=== PATIENT | male | born 1935 | race Caucasian/White ===

== ENCOUNTER 2017-09-27 23:15 | Observation (INO) ==
[2017-09-27] MEDS ORDERED: 0.9 % Sodium Chloride 500 ML IVC ONE (23:18)
--- NOTE | 2017-09-27 23:21 | Emergency Department Note ---
Disposition Clinical Impression: Chest pain Disposition: Admitted As Inpatient Condition: Good Referrals: Celina Tovar MD [Primary Care Provider] - Chest Pain HPI - General Stated Complaint: chest pain Time Seen by Provider: 09/27/17 23:18 Source: patient, EMS Mode of arrival: EMS Limitations: no limitations Vital Signs Reviewed: Yes Nursing Notes Reviewed: Yes - History of Present Illness HPI Narrative: Patient presents to the ED with the chief complaint of chest pain. Patient has a history of multivessel CABG and is on Plavix. States that he was woken up from sleep about 45 minutes ago with a centralized retrosternal chest pressure and heaviness. Associated with nausea but no vomiting. No diaphoresis. States it did make him feel slightly short of breath. No fever or chills, cough, abdominal pain, vomiting, diarrhea. States this feels like his last episode with his heart. EMS gave him an aspirin, which seemed to help his pain and brought it down from an 8-2. Patient reports he is pain-free at this time. - Related Data Home Medications Medication Instructions Recorded Confirmed Finasteride [Proscar] 5 mg PO HS 08/08/15 09/28/17 Furosemide [Lasix] 40 mg PO QAM 08/08/15 09/28/17 Losartan Potassium [Cozaar] 50 mg PO DAILY 08/08/15 09/28/17 Simvastatin [Zocor] 40 mg PO HS 08/08/15 09/28/17 Tamsulosin [Flomax] 0.4 mg PO HS 08/08/15 09/28/17 glipiZIDE [Glucotrol] 10 mg PO BID 08/08/15 09/28/17 Gabapentin [Neurontin] 100 mg PO QAM 01/28/16 09/28/17 Carvedilol 12.5 mg PO BID 06/01/16 09/28/17 Clopidogrel Bisulfate [Plavix] 75 mg PO HS 06/01/16 09/28/17 Gabapentin [Neurontin] 300 mg PO HS 06/01/16 09/28/17 Ketoconazole 2% CRM [Nizoral Cream] 1 appl TP DAILY 08/20/16 09/28/17 Allergies Allergy/AdvReac Type Severity Reaction Status Date / Time dabigatran etexilate AdvReac See Verified 06/01/16 16:50 [From Pradaxa] Comments Review of Systems: As reviewed in the HPI. All other systems reviewed are negative or normal. Chest Pain PMH - Past Medical History Medical history: Reports: arthritis, CHF, coronary artery disease, diabetes, hyperlipidemia, hypertension, peripheral artery disease, renal disease Surgical history: Reports: appendectomy, cholecystectomy, coronary bypass (CABG) , other, AICD Psychiatric history: Reports: no psych history - Social History Smoking Status: Former smoker Alcohol use: Reports: none Drug use: Reports: none Physical Exam - General Limitations: no limitations General appearance: alert, in no apparent distress, other (Appears uncomfortable ) - Chest Chest inspection: Present: normal inspection, symmetric chest wall rise, other ( Previous CABG scar) - Respiratory Respiratory exam: Present: normal lung sounds bilaterally - Cardiovascular Cardiovascular exam: Present: regular rate, normal rhythm, normal heart sounds - Abdominal Exam Abdominal exam: Present: soft, Non-Tender, scar (Multiple surgical scars right upper quadrant, midline lower abdomen). Absent: tenderness, distention, guarding, rebound, rigidity - Extremities Exam Extremities exam: Present: other (Left BKA, right leg slightly edematous) - Neurological Exam Neurological exam: Present: alert, oriented X3 - Psychiatric Psychiatric exam: Present: normal affect, normal mood - Skin Skin exam: Present: warm, dry, intact, normal color Course Course Narrative: Patient presenting with chest pain that it is his anginal equivalent. History of CABG and is on Plavix. We will get workup and admit. - Reevaluation(s) Reevaluation #1: Workup is been unremarkable so far. Patient does need to be admitted. However , the hospitalist: We have no telemetry beds. I have spoken with the on-call hospitalist, who states that he is calling that management and hospital administration to determine if we will be able to keep this patient here due to staffing concerns. Reevaluation #2: we did find a nurse and beds and the patient has been accepted for admission Vital Signs Temperature 97.5 F L 09/27/17 23:18 Pulse Rate 76 09/27/17 23:18 Respiratory Rate 18 09/27/17 23:18 Blood Pressure 149/69 09/27/17 23:18 O2 Sat by Pulse Oximetry 99 09/27/17 23:18 Temperature 97.5 F L 09/27/17 23:18 Pulse Rate 59 09/28/17 02:00 Respiratory Rate 18 04/16/18 23:18 Blood Pressure 137/61 09/28/17 02:00 O2 Sat by Pulse Oximetry 100 09/28/17 02:00 Oxygen Delivery Oxygen Delivery Room Air Chest Pain - Lab Data Result diagrams: 09/27/17 23:28 09/27/17 23:28 Lab Results 09/27/17 09/27/17 09/27/17 Range/Units 23:28 23:28 23:28 WBC 7.6 (4.3-11.1) K/mcL RBC 4.03 L (4.19-5.50) M/mcL Hgb 13.3 (12.9-16.9) g/dL Hct 38.1 (37.5-50.1) % MCV 94.5 (83.0-100.0) fL MCH 33.0 (28.0-33.3) pg MCHC 34.9 (31.6-35.5) g/dL RDW 13.8 (11.5-14.5) % Plt Count 124 L (140-400) K/mcL MPV 10.3 (9.4-12.4) fL Immature Gran % 0.5 (0-4) % Seg Neutrophils % 58.8 % Lymphocytes % 27.6 % Monocytes % 10.9 % Eosinophils % 1.8 % Basophils % 0.4 % Neutrophils # 4.5 (1.6-8.9) K/mcL Lymphocytes # 2.1 (0.6-4.6) K/mcL Monocytes # 0.8 (0.0-1.3) K/mcL Eosinophils # 0.1 (0.0-0.6) K/mcL Basophils # 0.0 (0.0-0.2) K/mcL Sodium 140 (136-145) mEq/L Potassium 4.2 (3.5-5.1) mEq/L Chloride 102 (98-107) mEq/L Carbon Dioxide 27 (23-29) mEq/L BUN 39 H (8-23) mg/dL Creatinine 1.41 H (0.70-1.30) mg/dL Est GFR ( Amer) 58 L (> 60) Est GFR (Non-Af Amer) 48 L (> 60) BUN/Creatinine Ratio 28 H (6-26) Glucose 157 H (70-105) mg/dL Calculated Osmolality 303 H (280-300) Calcium 9.4 (8.6-10.3) mg/dL Troponin I < 0.03 (< 0.04) ng/mL B-Natriuretic Peptide 165 H (Less than 100) pg/mL Urine Color (Yellow) Urine Clarity (Clear) Urine pH (5.0-8.0) pH Units Ur Specific [place] (1.010-1.025) Urine Protein (Neg-Trace) mg/dL Urine Glucose (UA) (Normal) mg/dL Urine Ketones (Negative) mg/dL Urine Blood (Negative) Urine Nitrite (Negative) Urine Bilirubin (Negative) Urine Urobilinogen (Normal) mg/dL Ur Leukocyte Esterase (Negative) Urine Microscopic RBC (0-3) per hpf Urine Microscopic WBC (0-3) per hpf Ur Squamous Epith Cells (None-Few) per lpf Urine Bacteria (None-Few) per hpf Hyaline Casts (None-Few) per lpf Ur Culture Indicated? (NO) 09/28/17 Range/Units 02:00 WBC (4.3-11.1) K/mcL RBC (4.19-5.50) M/mcL Hgb (12.9-16.9) g/dL Hct (37.5-50.1) % MCV (83.0-100.0) fL MCH (28.0-33.3) pg MCHC (31.6-35.5) g/dL RDW (11.5-14.5) % Plt Count (140-400) K/mcL MPV (9.4-12.4) fL Immature Gran % (0-4) % Seg Neutrophils % % Lymphocytes % % Monocytes % % Eosinophils % % Basophils % % Neutrophils # (1.6-8.9) K/mcL Lymphocytes # (0.6-4.6) K/mcL Monocytes # (0.0-1.3) K/mcL Eosinophils # (0.0-0.6) K/mcL Basophils # (0.0-0.2) K/mcL Sodium (136-145) mEq/L Potassium (3.5-5.1) mEq/L Chloride (98-107) mEq/L Carbon Dioxide (23-29) mEq/L BUN (8-23) mg/dL Creatinine (0.70-1.30) mg/dL Est GFR ( Amer) (> 60) Est GFR (Non-Af Amer) (> 60) BUN/Creatinine Ratio (6-26) Glucose (70-105) mg/dL Calculated Osmolality (280-300) Calcium (8.6-10.3) mg/dL Troponin I (< 0.04) ng/mL B-Natriuretic Peptide (Less than 100) pg/mL Urine Color Red A (Yellow) Urine Clarity Clear (Clear) Urine pH 6.0 (5.0-8.0) pH Units Ur Specific [place] 1.016 (1.010-1.025) Urine Protein Trace (Neg-Trace) mg/dL Urine Glucose (UA) 250 H (Normal) mg/dL Urine Ketones Negative (Negative) mg/dL Urine Blood Negative (Negative) Urine Nitrite Negative (Negative) Urine Bilirubin Negative (Negative) Urine Urobilinogen Normal (Normal) mg/dL Ur Leukocyte Esterase Negative (Negative) Urine Microscopic RBC 0-3 (0-3) per hpf Urine Microscopic WBC 0-3 (0-3) per hpf Ur Squamous Epith Cells Few (None-Few) per lpf Urine Bacteria None Seen (None-Few) per hpf Hyaline Casts None Seen (None-Few) per lpf Ur Culture Indicated? NO (NO)
[2017-09-27 23:38] LABS: Basophils % 0.4 %; Eosinophils # 0.1 K/mcL (0.0-0.6); Eosinophils % 1.8 %; Hematocrit 38.1 % (37.5-50.1); Hemoglobin 13.3 g/dL (12.9-16.9); Immature Granulocytes % 0.5 % (0-4); Lymphocytes # 2.1 K/mcL (0.6-4.6); Lymphocytes % 27.6 %; Mean Corpuscular HGB Conc 34.9 g/dL (31.6-35.5); Mean Corpuscular Volume 94.5 fL (83.0-100.0); Mean Platelet Volume 10.3 fL (9.4-12.4); Monocytes # 0.8 K/mcL (0.0-1.3); Monocytes % 10.9 %; Neutrophils # 4.5 K/mcL (1.6-8.9); Platelet Count 124 K/mcL (140-400); Red Blood Count 4.03 M/mcL (4.19-5.50); Red Cell Distribution Width 13.8 % (11.5-14.5); Segmented Neutrophils % 58.8 %
[2017-09-27 23:59] LABS: BUN/Creatinine Ratio 28 (6-26); Blood Urea Nitrogen 39 mg/dL (8-23); Calcium 9.4 mg/dL (8.6-10.3); Carbon Dioxide 27 mEq/L (23-29); Chloride 102 mEq/L (98-107); Glucose 157 mg/dL (70-105); Osmolality,Calculated 303 (280-300); Potassium 4.2 mEq/L (3.5-5.1); Sodium 140 mEq/L (136-145); eGFR For African Americans 58 (> 60); eGFR For Non-African Americans 48 (> 60)
[2017-09-28] LABS: Troponin I < 0.03 ng/mL (< 0.04)
[2017-09-28] MEDS ORDERED: Ondansetron 4 MG/2 ML VIAL IVP ONE (00:10)
[2017-09-28] MEDS ORDERED: *HR* OxyCODONE/APAP 5/325 TABLET PO ONE (00:50)
[2017-09-28 02:39] LABS: Bilirubin,Urine Negative (Negative); Blood,Urine Negative (Negative); Clarity,Urine Clear (Clear); Color,Urine Red (Yellow); Glucose,Urine (UA) 250 mg/dL (Normal); Ketones,Urine Negative (Negative); Leukocyte Esterase,Urine Negative (Negative); Nitrite,Urine Negative (Negative); Protein,Urine Trace mg/dL (Neg-Trace); Specific Gravity,Urine 1.016 (1.010-1.025); Urobilinogen,Urine Normal (Normal)
[2017-09-28 02:42] LABS: Bacteria,Urine None Seen per hpf (None-Few); Hyaline Casts,Urine None Seen per lpf (None-Few); RBC,Urine 0-3 per hpf (0-3); Squamous Epithelial Cell,Urine Few per lpf (None-Few); WBC,Urine 0-3 per hpf (0-3)
--- NOTE | 2017-09-28 03:50 | Emergency Department Note ---
Disposition Clinical Impression: Chest pain Disposition: Admitted As Inpatient Condition: Good Referrals: Celina Tovar MD [Primary Care Provider] - General Adult HPI - General Chief complaint: ED Chest Pain Stated complaint: chest pain Time Seen by Provider: 09/27/17 23:18 Source: patient, EMS Mode of arrival: EMS Limitations: no limitations - History of Present Illness Pain Scale: 3 - Related Data Home Medications Medication Instructions Recorded Confirmed Finasteride [Proscar] 5 mg PO HS 08/08/15 09/28/17 Furosemide [Lasix] 40 mg PO QAM 08/08/15 09/28/17 Losartan Potassium [Cozaar] 50 mg PO DAILY 08/08/15 09/28/17 Simvastatin [Zocor] 40 mg PO HS 08/08/15 09/28/17 Tamsulosin [Flomax] 0.4 mg PO HS 08/08/15 09/28/17 glipiZIDE [Glucotrol] 10 mg PO BID 08/08/15 09/28/17 Gabapentin [Neurontin] 100 mg PO QAM 01/28/16 09/28/17 Carvedilol 12.5 mg PO BID 06/01/16 09/28/17 Clopidogrel Bisulfate [Plavix] 75 mg PO HS 06/01/16 09/28/17 Gabapentin [Neurontin] 300 mg PO HS 06/01/16 09/28/17 Ketoconazole 2% CRM [Nizoral Cream] 1 appl TP DAILY 08/20/16 09/28/17 Allergies Allergy/AdvReac Type Severity Reaction Status Date / Time dabigatran etexilate AdvReac See Verified 06/01/16 16:50 [From Pradaxa] Comments Past Medical History - Past Medical History Medical history: Reports: arthritis, CHF, coronary artery disease, diabetes, hyperlipidemia, hypertension, peripheral artery disease, renal disease Surgical history: Reports: appendectomy, cholecystectomy, coronary bypass (CABG) , other, AICD Psychiatric history: Reports: no psych history - Social History Smoking Status: Former smoker Smokeless Tobacco Status: No Alcohol use: Reports: none Drug use: Reports: none Physical Exam - General Limitations: no limitations General appearance: alert, in no apparent distress, other (Appears uncomfortable ) Course Vital Signs Temperature 97.5 F L 09/27/17 23:18 Pulse Rate 76 09/27/17 23:18 Respiratory Rate 18 04/16/18 23:18 Blood Pressure 149/69 09/27/17 23:18 O2 Sat by Pulse Oximetry 99 09/27/17 23:18 Temperature 97.5 F L 09/27/17 23:18 Pulse Rate 59 09/28/17 02:00 Respiratory Rate 18 09/27/17 23:18 Blood Pressure 137/61 09/28/17 02:00 O2 Sat by Pulse Oximetry 100 09/28/17 02:00 Oxygen Delivery Oxygen Delivery Room Air Medical Decision Making - Lab Data Result diagrams: 09/27/17 23:28 09/27/17 23:28 Lab Results 09/27/17 09/27/17 09/27/17 Range/Units 23:28 23:28 23:28 WBC 7.6 (4.3-11.1) K/mcL RBC 4.03 L (4.19-5.50) M/mcL Hgb 13.3 (12.9-16.9) g/dL Hct 38.1 (37.5-50.1) % MCV 94.5 (83.0-100.0) fL MCH 33.0 (28.0-33.3) pg MCHC 34.9 (31.6-35.5) g/dL RDW 13.8 (11.5-14.5) % Plt Count 124 L (140-400) K/mcL MPV 10.3 (9.4-12.4) fL Immature Gran % 0.5 (0-4) % Seg Neutrophils % 58.8 % Lymphocytes % 27.6 % Monocytes % 10.9 % Eosinophils % 1.8 % Basophils % 0.4 % Neutrophils # 4.5 (1.6-8.9) K/mcL Lymphocytes # 2.1 (0.6-4.6) K/mcL Monocytes # 0.8 (0.0-1.3) K/mcL Eosinophils # 0.1 (0.0-0.6) K/mcL Basophils # 0.0 (0.0-0.2) K/mcL Sodium 140 (136-145) mEq/L Potassium 4.2 (3.5-5.1) mEq/L Chloride 102 (98-107) mEq/L Carbon Dioxide 27 (23-29) mEq/L BUN 39 H (8-23) mg/dL Creatinine 1.41 H (0.70-1.30) mg/dL Est GFR ( Amer) 58 L (> 60) Est GFR (Non-Af Amer) 48 L (> 60) BUN/Creatinine Ratio 28 H (6-26) Glucose 157 H (70-105) mg/dL Calculated Osmolality 303 H (280-300) Calcium 9.4 (8.6-10.3) mg/dL Troponin I < 0.03 (< 0.04) ng/mL B-Natriuretic Peptide 165 H (Less than 100) pg/mL Urine Color (Yellow) Urine Clarity (Clear) Urine pH (5.0-8.0) pH Units Ur Specific [place] (1.010-1.025) Urine Protein (Neg-Trace) mg/dL Urine Glucose (UA) (Normal) mg/dL Urine Ketones (Negative) mg/dL Urine Blood (Negative) Urine Nitrite (Negative) Urine Bilirubin (Negative) Urine Urobilinogen (Normal) mg/dL Ur Leukocyte Esterase (Negative) Urine Microscopic RBC (0-3) per hpf Urine Microscopic WBC (0-3) per hpf Ur Squamous Epith Cells (None-Few) per lpf Urine Bacteria (None-Few) per hpf Hyaline Casts (None-Few) per lpf Ur Culture Indicated? (NO) 09/28/17 Range/Units 02:00 WBC (4.3-11.1) K/mcL RBC (4.19-5.50) M/mcL Hgb (12.9-16.9) g/dL Hct (37.5-50.1) % MCV (83.0-100.0) fL MCH (28.0-33.3) pg MCHC (31.6-35.5) g/dL RDW (11.5-14.5) % Plt Count (140-400) K/mcL MPV (9.4-12.4) fL Immature Gran % (0-4) % Seg Neutrophils % % Lymphocytes % % Monocytes % % Eosinophils % % Basophils % % Neutrophils # (1.6-8.9) K/mcL Lymphocytes # (0.6-4.6) K/mcL Monocytes # (0.0-1.3) K/mcL Eosinophils # (0.0-0.6) K/mcL Basophils # (0.0-0.2) K/mcL Sodium (136-145) mEq/L Potassium (3.5-5.1) mEq/L Chloride (98-107) mEq/L Carbon Dioxide (23-29) mEq/L BUN (8-23) mg/dL Creatinine (0.70-1.30) mg/dL Est GFR ( Amer) (> 60) Est GFR (Non-Af Amer) (> 60) BUN/Creatinine Ratio (6-26) Glucose (70-105) mg/dL Calculated Osmolality (280-300) Calcium (8.6-10.3) mg/dL Troponin I (< 0.04) ng/mL B-Natriuretic Peptide (Less than 100) pg/mL Urine Color Red A (Yellow) Urine Clarity Clear (Clear) Urine pH 6.0 (5.0-8.0) pH Units Ur Specific [place] 1.016 (1.010-1.025) Urine Protein Trace (Neg-Trace) mg/dL Urine Glucose (UA) 250 H (Normal) mg/dL Urine Ketones Negative (Negative) mg/dL Urine Blood Negative (Negative) Urine Nitrite Negative (Negative) Urine Bilirubin Negative (Negative) Urine Urobilinogen Normal (Normal) mg/dL Ur Leukocyte Esterase Negative (Negative) Urine Microscopic RBC 0-3 (0-3) per hpf Urine Microscopic WBC 0-3 (0-3) per hpf Ur Squamous Epith Cells Few (None-Few) per lpf Urine Bacteria None Seen (None-Few) per hpf Hyaline Casts None Seen (None-Few) per lpf Ur Culture Indicated? NO (NO) Attestation Statement - Attestation Attestation: I examined this patient and my medical decision-making was reviewed with the Resident Physician. I agree with the documented findings, disposition and treatment plan as described except to the extent set forth below. Findings consistent with chest pain. Patient has multiple risk factors. We will proceed with admission for further management of chest pain and trending of cardiac biomarkers.
[2017-09-28] MEDS ORDERED: Naloxone 0.4 MG/ML INJ IVP PRN (08:59)
[2017-09-28] MEDS ORDERED: *HR* HYDROcodone/Acet 5/325 mg TABLET PO PRN (09:04)
[2017-09-28] MEDS ORDERED: Acetaminophen 325 MG TABLET PO PRN (09:04)
[2017-09-28] MEDS ORDERED: Dextrose Gel 15 GM/37.5 ML TUBE PO PRN ×2 (09:15)
[2017-09-28] MEDS ORDERED: *HR* Dextrose 50 % in Water (Syg) 50 ML SYRINGE IVP PRN (09:15)
[2017-09-28] MEDS ORDERED: D5% in Water 1,000 ML IVC PRN (09:15)
[2017-09-28] MEDS: Furosemide 40 MG TABLET PO SCH (11:08)
[2017-09-28] MEDS: Gabapentin 100 MG CAPSULE PO SCH ×2 (11:08→21:18)
[2017-09-28] MEDS: Insulin LISPRO 300 UNITS/3 ML VIAL SQ SCH ×3 (11:08→21:19)
[2017-09-28] MEDS: Ketoconazole 2% CRM 15 GM TUBE TP SCH (12:36)
[2017-09-28] MEDS: *HR* Enoxaparin 40 MG/0.4 ML SYRINGE SQ SCH (12:37)
--- NOTE | 2017-09-28 15:05 | Internal Med History&Physical ---
Date of Encounter: 09/28/17 Time of Encounter: 09:00 Internal Medicine - H&P: HPI Chief complaint: Chest Pain Admitted From: Emergency Dept Plans for Post Hospital Care: Home History of present illness: Mr. Del Rio is a 82 year old male with PMH of CAD s/p 5 vessel CABG, CHF, Type II DM, HLD, HTN, PAD, and CKD who presented to ED last night for chest pain. He states that he was sleeping and was awoken by substernal chest pain that he described as "heaviness." Pain did not radiate anywhere. He denies SOB, diaphoresis, nausea, vomiting, or other symptoms. He also denies fever or chills. He was given aspirin en route by EMS. He is pain free at the time of my evaluation. He has no other complaints. Past Med Surg Social Fam HX - Past Medical History Attestation: Yes The following information was validated with the patient. Medical history: arthritis, CHF, coronary artery disease, diabetes, hyperlipidemia, hypertension, peripheral artery disease, renal disease Psychiatric history: no psych history - Past Surgical History Surgical History: appendectomy, cholecystectomy, coronary bypass (CABG), other, AICD - Social History Smoking Status: Former smoker Smokeless Tobacco Status: No Alcohol use: none Drug use: none Current living situation: Home - Family History Mother Living Status: Father Living Status: Hx Family Cardiac Disorders: No Hx Family Respiratory Disorders: No Hx Family Cancer: Yes (FATHER) Hx Family GI Disorders: No Hx Family Endocrine Disorder: Yes (SISTER) Hx Family Neuromuscular Disorders: No Hx Family Neurologic Disorders: No Hx Family HEENT Disorders: No Hx Family Autoimmune Disorders: No Internal Medicine - H&P: Meds Finasteride [Proscar] 5 mg PO HS 08/08/15 [History] Furosemide [Lasix] 40 mg PO QAM 08/08/15 [History] Losartan Potassium [Cozaar] 50 mg PO DAILY 08/08/15 [History] Simvastatin [Zocor] 40 mg PO HS 08/08/15 [History] Tamsulosin [Flomax] 0.4 mg PO HS 08/08/15 [History] glipiZIDE [Glucotrol] 10 mg PO BID 08/08/15 [History] Gabapentin [Neurontin] 100 mg PO QAM 01/28/16 [History] Carvedilol 12.5 mg PO BID 06/01/16 [History] Clopidogrel Bisulfate [Plavix] 75 mg PO HS 06/01/16 [History] Gabapentin [Neurontin] 300 mg PO HS 06/01/16 [History] Ketoconazole 2% CRM [Nizoral Cream] 1 appl TP DAILY 08/20/16 [History] 3 Allergy/AdvReac Type Severity Reaction Status Date / Time dabigatran etexilate AdvReac See Verified 06/01/16 16:50 [From Pradaxa] Comments All Systems PM: A 10-system review of systems was performed and is negative for pertinent findings except as documented above in the HPI. - Constitutional Constitutional: no chills, no fatigue, no fever(s), no lethargy, no malaise, no weight gain, no weight loss - EENT Eyes: no blurry vision, no diplopia, no discharge, no loss of vision, no pain Ears: no decreased hearing, no ear pain Nose, mouth and throat: no dry mouth, no nasal congestion, no neck pain, no sore throat - Cardiovascular Cardiovascular ROS IM: chest pain, no dyspnea, no edema, no lightheadedness, no palpitations, no syncope - Respiratory Respiratory: no cough, no dyspnea, no hemoptysis, no wheezing, no chest congestion - Gastrointestinal Gastrointestinal: no abdominal pain, no constipation, no diarrhea, no heartburn , no hematochezia, no melena, no nausea, no vomiting - Genitourinary Genitourinary ROS male: no difficulty urinating, no dysuria, no hematuria, no urinary frequency - Musculoskeletal Musculoskeletal ROS IM: no back pain, no joint swelling, no muscle weakness - Integumentary Integumentary IM: no erythema, no rash, no skin ulcer, no jaundice - Neurological Neurological ROS: no abnormal speech, no confusion, no dizziness, no focal weakness, no headache(s), no vertigo, no weakness - Psychiatric Psychiatric: no anxiety, no depression, no hallucinations, no suicidal ideation - Endocrine Endocrine IM: no cold intolerance, no heat intolerance, no polydipsia, no polyphagia, no polyuria - Constitutional Vitals: Temp Pulse Resp BP Pulse Ox 97.5 F L 64 18 148/73 100 09/27/17 23:18 09/28/17 11:05 09/28/17 11:05 09/28/17 11:05 09/28/17 11:05 General appearance: Present: cooperative, A&O X 3, pleasant, no acute distress, answers questions appropriately - Head Head exam: Present: atraumatic, normocephalic - Eye Eye exam: Present: EOMI, normal appearance, PERRL. Absent: nystagmus, scleral icterus - ENT ENT exam: Present: mucous membranes moist, normal oropharynx - Neck Neck exam general surgery: Present: supple, trachea midline. Absent: lymphadenopathy, tenderness, thyromegaly - Respiratory Respiratory exam: Present: CTAB. Absent: accessory muscle use, rales, rhonchi, wheezes Additional comments: Normal WOB - Cardiovascular Cardiovascular exam: Present: RRR, +S1, +S2, systolic murmur. Absent: diastolic murmur, gallop, rubs Additional comments: No BLE edema - GI/Abdominal GI/Abdominal exam: Present: normal bowel sounds, soft. Absent: distended, hepatomegaly, mass, splenomegaly, tenderness - Extremities Exam Extremities exam: Present: warm. Absent: cyanotic, joint swelling, pedal edema , tenderness Additional comments: Left above knee amputation - Neurological Exam Neurological exam: Present: alert, CN II-XII intact, oriented X3, no focal deficits. Absent: facial droop, speech deficit - Psychiatric Psychiatric exam: Present: normal affect, normal mood. Absent: anxious, depressed - Skin Skin exam: Present: dry, intact, warm. Absent: cyanosis, rash Internal Med - H&P Results - Labs CBC & Chem 7: 09/27/17 23:28 09/27/17 23:28 Labs: Cardiac Enzymes 09/28/17 Range/Units 10:11 Troponin I < 0.03 (< 0.04) ng/mL - Assessment and plan (1) Chest pain Current Visit: Yes Status: Acute Assessment and plan: Admit for observation to general medical floor. Given cardiac history, will rule out ACS. Trend troponin x 3. Continue aspirin, plavix, coreg, losartan, and simvastatin. Start tylenol and norco PRN pain. Repeat labwork including lipid panel in AM. Qualifiers: Chest pain type: other chest pain Qualified Code(s): R07.89 - Other chest pain; R07.8 - Other chest pain (2) CKD (chronic kidney disease) stage 3, GFR 30-59 ml/min Current Visit: No Status: Acute Assessment and plan: Cr = 1.41 (at his baseline). Continue to monitor. Repeat BMP in AM. (3) Systolic heart failure Current Visit: No Status: Acute Assessment and plan: pBNP mildly elevated at 165. Euvolemic at this time. Continue home lasix. Continue home medications as per above. Qualifiers: Heart failure chronicity: chronic Qualified Code(s): I50.22 - Chronic systolic (congestive) heart failure (4) Atherosclerosis of [place] arteries of left leg with ulceration of other part of foot Current Visit: No Status: Chronic Assessment and plan: History of PAD. No ulcerations at this time. Continue medical management as per above. (5) CAD (coronary artery disease) Current Visit: No Status: Chronic Assessment and plan: Rule out ACS as per above. Continue home medications as per above. Qualifiers: Coronary Disease-Associated Artery/Lesion type: [place] artery [place] vs. transplanted heart: [place] heart Associated angina: without angina Qualified Code(s): I25.10 - Atherosclerotic heart disease of [place] coronary artery without angina pectoris (6) Hypertension Current Visit: No Status: Chronic Assessment and plan: Continue home medications as per above. Qualifiers: Hypertension type: essential hypertension Qualified Code(s): I10 - Essential (primary) hypertension (7) Type 2 diabetes mellitus Current Visit: No Status: Chronic Assessment and plan: Hold home medications. Start accuchecks and low dose SSI QID AC/HS. Start diabetic/cardiac diet. 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 - Time Spent With Patient Total time spent is greater than 50% in coordination of care (as documented) at patient's floor/unit and/or counseling patient: 25 - 35 minutes
[2017-09-28] MEDS: Finasteride 5 MG TABLET PO SCH (21:18)
[2017-09-29 04:39] LABS: Basophils % 0.4 %; Hematocrit 34.7 % (37.5-50.1); Mean Corpuscular HGB Conc 34.6 g/dL (31.6-35.5); Mean Corpuscular Volume 95.3 fL (83.0-100.0); Mean Platelet Volume 10.4 fL (9.4-12.4); Red Blood Count 3.64 M/mcL (4.19-5.50)
[2017-09-29 04:40] LABS: Eosinophils # 0.1 K/mcL (0.0-0.6); Eosinophils % 2.4 %; Immature Granulocytes % 0.4 % (0-4); Immature Platelets 2.1 % (1.1-6.1); Lymphocytes # 1.6 K/mcL (0.6-4.6); Lymphocytes % 28.7 %; Monocytes # 0.6 K/mcL (0.0-1.3); Monocytes % 11.1 %; Nucleated Red Blood Cells 0.5 /100 WBC (0); Red Cell Distribution Width 13.9 % (11.5-14.5)
[2017-09-29 04:58] LABS: Calcium 9.3 mg/dL (8.6-10.3); Chol/HDL Ratio 3.7 (0-4.9); Potassium 4.5 mEq/L (3.5-5.1)
[2017-09-29 05:05] LABS: Neutrophils # 3.1 K/mcL (1.6-8.9); Platelet Count 92 K/mcL (140-400)
[2017-09-29 05:08] LABS: Platelet Estimate Decreased (Normal)
[2017-09-29] MEDS: *HR* Enoxaparin 40 MG/0.4 ML SYRINGE SQ SCH (06:36)
[2017-09-29] MEDS: Gabapentin 100 MG CAPSULE PO SCH ×2 (10:16→21:17)
[2017-09-29] MEDS: Furosemide 40 MG TABLET PO SCH (10:16)
[2017-09-29] MEDS: Insulin LISPRO 300 UNITS/3 ML VIAL SQ SCH ×4 (10:16→21:18)
[2017-09-29] MEDS: Aspirin Enteric Coated 81 MG Tablet PO SCH (10:16)
[2017-09-29] MEDS: Ketoconazole 2% CRM 15 GM TUBE TP SCH (10:16)
[2017-09-29] MEDS ORDERED: Nystatin POWDER 30 GM BOTTLE TP PRN (14:52)
--- NOTE | 2017-09-29 15:32 | Internal Med Progress Note ---
Date of Encounter: 09/29/17 Time of Encounter: 15:31 - Assessment and plan (1) Chest pain Current Visit: Yes Status: Acute Assessment and plan: Presented with chest pain that woke him from sleep. Has known CAD with history of CABG. Serial troponins negative. EKG without acute ST changes. Continue aspirin, plavix, coreg, losartan, and simvastatin. Stress test in the morning. Qualifiers: Chest pain type: other chest pain Qualified Code(s): R07.89 - Other chest pain; R07.8 - Other chest pain (2) Atherosclerosis of [place] arteries of left leg with ulceration of other part of foot Current Visit: No Status: Chronic Assessment and plan: History of PAD. No ulcerations at this time. Continue medical management as per above. (3) CAD (coronary artery disease) Current Visit: No Status: Chronic Assessment and plan: Rule out ACS as per above. Continue home medications as per above. Qualifiers: Coronary Disease-Associated Artery/Lesion type: [place] artery [place] vs. transplanted heart: [place] heart Associated angina: without angina Qualified Code(s): I25.10 - Atherosclerotic heart disease of [place] coronary artery without angina pectoris (4) Hypertension Current Visit: No Status: Chronic Assessment and plan: Continue home medications as per above. Qualifiers: Hypertension type: essential hypertension Qualified Code(s): I10 - Essential (primary) hypertension (5) Systolic heart failure Current Visit: No Status: Acute Assessment and plan: pBNP mildly elevated at 165. Euvolemic at this time. Continue home lasix. Continue home medications as per above. Qualifiers: Heart failure chronicity: chronic Qualified Code(s): I50.22 - Chronic systolic (congestive) heart failure (6) CKD (chronic kidney disease) stage 3, GFR 30-59 ml/min Current Visit: No Status: Acute Assessment and plan: Cr = 1.41 (at his baseline). Continue to monitor. Repeat BMP in AM. (7) Type 2 diabetes mellitus Current Visit: No Status: Chronic Assessment and plan: Hold home medications. Start accuchecks and low dose SSI QID AC/HS. Start diabetic/cardiac diet. 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 - Time Spent With Patient Total time spent is greater than 50% in coordination of care (as documented) at patient's floor/unit and/or counseling patient: - Subjective Interval history: Seen and examined at bedside. Patient is new to me, information obtained from chart review and patient report. Still having intermittent chest pain. Located substernal, described as a pressure. Does not radiate. Nothing makes better or worse. Comes and goes on its own. He is agreeable for stress test. - Constitutional Vitals: Temp Pulse Resp BP Pulse Ox 97.8 F 66 16 115/55 98 09/29/17 10:56 09/29/17 10:56 09/29/17 10:56 09/29/17 10:56 09/29/17 10:56 General appearance: Present: cooperative, A&O X 3, pleasant, no acute distress, answers questions appropriately - Head Head exam: Present: atraumatic, normocephalic - Eye Eye exam: Present: PERRL, conjuntiva pink, sclera anicteric Pupils: Present: PERRL - Neck Neck exam general surgery: Present: supple, trachea midline. Absent: lymphadenopathy - Respiratory Respiratory exam: Present: CTAB. Absent: accessory muscle use, rales, rhonchi, wheezes - Cardiovascular Cardiovascular exam: Present: RRR, +S1, +S2. Absent: diastolic murmur, gallop, rubs, systolic murmur - GI/Abdominal GI/Abdominal exam: Present: normal bowel sounds, soft, no peritoneal signs. Absent: distended, tenderness - Extremities Exam Extremities exam: Present: warm, radial pulses palpable and symmetrical. Absent : calf tenderness, cyanotic, pedal edema Additional comments: Left AKA - Neurological Exam Neurological exam: Present: CN II-XII intact, oriented X3, no focal deficits. Absent: pronater drift, facial droop, speech deficit - Skin Skin exam: Present: dry, intact Internal Medicine: Result - Labs CBC & Chem 7: 09/29/17 04:03 09/29/17 04:03 Labs: Short CBC 09/29/17 Range/Units 04:03 WBC 5.5 (4.3-11.1) K/mcL Hgb 12.0 L (12.9-16.9) g/dL Hct 34.7 L (37.5-50.1) % Plt Count 92 L (140-400) K/mcL Neutrophils # 3.1 (1.6-8.9) K/mcL BMP 09/29/17 04:03 Sodium 139 Potassium 4.5 Chloride 106 Carbon Dioxide 27 BUN 39 H Creatinine 1.44 H Glucose 144 H Calcium 9.3 Cardiac Enzymes 09/28/17 Range/Units 16:18 Troponin I < 0.03 (< 0.04) ng/mL Consult Discharge Plan - Plan
[2017-09-29] MEDS: Finasteride 5 MG TABLET PO SCH (21:17)
[2017-09-30] MEDS: *HR* Enoxaparin 40 MG/0.4 ML SYRINGE SQ SCH (03:55)
[2017-09-30] MEDS ORDERED: Regadenoson 0.4 MG/5 ML SYRINGE IVP ONE (05:51)
[2017-09-30] MEDS: Gabapentin 100 MG CAPSULE PO SCH (09:26)
[2017-09-30] MEDS: Aspirin Enteric Coated 81 MG Tablet PO SCH (09:26)
[2017-09-30] MEDS: Furosemide 40 MG TABLET PO SCH (09:26)
[2017-09-30] MEDS: Insulin LISPRO 300 UNITS/3 ML VIAL SQ SCH ×2 (09:28→12:05)
[2017-09-30 10:26] LABS: Mean Corpuscular Volume 96.4 fL (83.0-100.0)
[2017-09-30 10:28] LABS: Hematocrit 32.4 % (37.5-50.1); Hemoglobin 11.1 g/dL (12.9-16.9); Mean Corpuscular HGB Conc 34.3 g/dL (31.6-35.5); Mean Platelet Volume 10.3 fL (9.4-12.4); Red Blood Count 3.36 M/mcL (4.19-5.50)
[2017-09-30 10:49] LABS: Calcium 9.1 mg/dL (8.6-10.3); Potassium 4.3 mEq/L (3.5-5.1)
[2017-09-30 11:42] VITALS: BP 123/63
--- NOTE | 2017-09-30 14:34 | Discharge Summary ---
Orders not resulted at time of discharge: Pending orders 09/29/17 08:50 NM renny perf SPECT multi [NM] Routine Date of Encounter: 09/30/17 Time of Encounter: 14:14 - Discharge Diagnosis (1) Chest pain Priority: Primary Status: Acute Qualifiers: Chest pain type: other chest pain Qualified Code(s): R07.89 - Other chest pain; R07.8 - Other chest pain (2) Atherosclerosis of [place] arteries of left leg with ulceration of other part of foot Priority: Primary Status: Chronic (3) CAD (coronary artery disease) Priority: Primary Status: Chronic Qualifiers: Coronary Disease-Associated Artery/Lesion type: [place] artery [place] vs. transplanted heart: [place] heart Associated angina: without angina Qualified Code(s): I25.10 - Atherosclerotic heart disease of [place] coronary artery without angina pectoris (4) Hypertension Priority: Primary Status: Chronic Qualifiers: Hypertension type: essential hypertension Qualified Code(s): I10 - Essential (primary) hypertension (5) Systolic heart failure Priority: Primary Status: Acute Qualifiers: Heart failure chronicity: chronic Qualified Code(s): I50.22 - Chronic systolic (congestive) heart failure (6) CKD (chronic kidney disease) stage 3, GFR 30-59 ml/min Priority: Primary Status: Acute (7) Type 2 diabetes mellitus Priority: Primary Status: Chronic Qualifiers: Diabetes mellitus longterm insulin use: with longterm use Diabetes mellitus complication status: with kidney complications Diabetes mellitus complication detail: with chronic kidney disease Chronic kidney disease stage : stage 3 (moderate) Qualified Code(s): E11.22 - Type 2 diabetes mellitus with diabetic chronic kidney disease; N18.3 - Chronic kidney disease, stage 3 ( moderate); Z79.4 - penitentiary (current) use of insulin Hospital course: Mr. Del Rio is a 82 year old male with PMH of CAD s/p 5 vessel CABG, CHF, Type II DM, HLD, HTN, PAD, and CKD who presented to ED last night for chest pain. He was placed in observation status for ACS rule out. Serial troponins negative , EKG without acute ST changes. Nuclear medicine stress test with large sized fixed perfusion defect consistent with prior infarct, otherwise negative for ischemia, gated EF 26%. Chest pain resolved without intervention. Patient declined to stay for stress test. He tells me Plavixto be stopped 10 days prior to prostate biopsy. He has follow-up with his primary food and beverage attendant on Wednesday09/01/17; I recommended he remain on the Plavix since he had chest pain until he has seen his food and beverage attendant even if that means rescheduling the prostate biopsy. Patient verbalized understanding. Advised to return to the ER if chest pain/SOB recurs. Discharge discussed with: patient (Seen and examined at bedside. Denies chest pain, no shortness of breath. Says he would like to be able to go home today if possible. Recommended inpatient echocardiogram however patient declined. States he has limited transportation and has a ride available today at 1630.) - Time Spent with Patient Total time spent providing and/or coordinating discharge services: - Discharge Medications Home Medications: Finasteride [Proscar] 5 mg PO HS 08/08/15 [History] Furosemide [Lasix] 40 mg PO QAM 08/08/15 [History] Losartan Potassium [Cozaar] 50 mg PO DAILY 08/08/15 [History] Simvastatin [Zocor] 40 mg PO HS 08/08/15 [History] Tamsulosin [Flomax] 0.4 mg PO HS 08/08/15 [History] glipiZIDE [Glucotrol] 10 mg PO BID 08/08/15 [History] Gabapentin [Neurontin] 100 mg PO QAM 01/28/16 [History] Carvedilol 12.5 mg PO BID 06/01/16 [History] Clopidogrel Bisulfate [Plavix] 75 mg PO HS 06/01/16 [History] Gabapentin [Neurontin] 300 mg PO HS 06/01/16 [History] Ketoconazole 2% CRM [Nizoral Cream] 1 appl TP DAILY 08/20/16 [History] Allergies/Adverse Reactions: 3 Allergy/AdvReac Type Severity Reaction Status Date / Time dabigatran etexilate AdvReac See Verified 06/01/16 16:50 [From Pradaxa] Comments Date of admission: 09/28/17 06:18 Primary care physician: Celina Tovar Discharging clinician: Estrella Slater Anticipated date of discharge: 09/30/17 - Constitutional Vitals: Temp Pulse Resp BP Pulse Ox 97.4 F L 66 14 123/63 99 09/30/17 11:41 09/30/17 11:41 09/30/17 11:41 09/30/17 11:41 09/30/17 11:41 General appearance: Present: cooperative, A&O X 3, pleasant, no acute distress, answers questions appropriately - Head Head exam: Present: atraumatic, normocephalic - Eye Eye exam: Present: PERRL, conjuntiva pink, sclera anicteric Pupils: Present: PERRL - Neck Neck exam general surgery: Present: supple, trachea midline. Absent: lymphadenopathy - Respiratory Respiratory exam: Present: CTAB. Absent: accessory muscle use, rales, rhonchi, wheezes - Cardiovascular Cardiovascular exam: Present: RRR, +S1, +S2. Absent: diastolic murmur, gallop, rubs, systolic murmur - GI/Abdominal GI/Abdominal exam: Present: normal bowel sounds, soft, no peritoneal signs. Absent: distended, tenderness - Extremities Exam Extremities exam: Present: warm, radial pulses palpable and symmetrical. Absent : calf tenderness, cyanotic, pedal edema Additional comments: Left AKA - Neurological Exam Neurological exam: Present: CN II-XII intact, oriented X3, no focal deficits. Absent: pronater drift, facial droop, speech deficit - Skin Skin exam: Present: dry, intact - Patient Status Disposition: Home, Self-Care Condition: Good Functional capacity at discharge: wheelchair bound Overall status at discharge: patient is back to baseline - Discharge Instructions Instructions: Coronary Artery Disease (DC), Chest Pain (DC) Follow Up With: Celina Tovar MD [Primary Care Provider] - 10/11/17 11:15 am Huey Juarez MD [Partnered Physician] - 10/04/17 (Please keep your appointment on Wednesday10/04/17) Forms: ED Satisfaction Letter - Diet and Activity Activity: increase activity as tolerated Diet: diabetic diet, low fat, low cholesterol
--- NOTE | 2017-10-01 14:44 | Electrocardiograph Report ---
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
== END 2017-09-30 16:21 | disposition home or self-care (01) ==
LOC: 2SOUTHHOLD 23:15 → EMEROO 23:15 → 2SOUTHHOLD 09-28 06:43 → 3BNU 09-29 18:54
PROVIDERS: ADMIT Pediatrics; ATTEND Registered Nurse

== ENCOUNTER 2017-12-02 19:23 | Observation (INO) ==
[2017-12-02 20:00] LABS: Eosinophils # 0.2 K/mcL (0.0-0.6); Eosinophils % 2.4 %; Hematocrit 33.4 % (37.5-50.1); Hemoglobin 11.6 g/dL (12.9-16.9); Immature Granulocytes % 0.8 % (0-4); Lymphocytes # 0.5 K/mcL (0.6-4.6); Lymphocytes % 7.8 %; Mean Corpuscular HGB Conc 34.7 g/dL (31.6-35.5); Mean Corpuscular Volume 94.9 fL (83.0-100.0); Mean Platelet Volume 10.6 fL (9.4-12.4); Monocytes # 0.6 K/mcL (0.0-1.3); Monocytes % 8.9 %; Platelet Count 113 K/mcL (140-400); Red Blood Count 3.52 M/mcL (4.19-5.50); Red Cell Distribution Width 13.8 % (11.5-14.5); Segmented Neutrophils % 80.1 %
[2017-12-02 20:06] LABS: Bilirubin,Urine Negative (Negative); Blood,Urine Negative (Negative); Clarity,Urine Clear (Clear); Color,Urine Yellow (Yellow); Glucose,Urine (UA) 500 mg/dL (Normal); Ketones,Urine Negative (Negative); Leukocyte Esterase,Urine Negative (Negative); Nitrite,Urine Negative (Negative); Protein,Urine Trace mg/dL (Neg-Trace); Specific Gravity,Urine 1.018 (1.010-1.025); Urobilinogen,Urine Normal (Normal)
[2017-12-02 20:08] LABS: Bacteria,Urine None Seen per hpf (None-Few); Hyaline Casts,Urine None Seen per lpf (None-Few); RBC,Urine 0-3 per hpf (0-3); Squamous Epithelial Cell,Urine None Seen per lpf (None-Few); WBC,Urine 0-3 per hpf (0-3)
[2017-12-02 20:20] LABS: Albumin 3.6 g/dL (3.5-5.7); Albumin/Globulin Ratio 1.1 (1.1-2.2); Bilirubin,Direct 0.2 mg/dL (0.0-0.2); Bilirubin,Indirect 0.4 mg/dL (0.0-1.2); Bilirubin,Total 0.6 mg/dL (0.3-1.0); Calcium 8.9 mg/dL (8.6-10.3); Globulin 3.2 g/dL (2.4-3.5); Potassium 4.5 mEq/L (3.5-5.1); Total Protein 6.8 g/dL (6.4-8.9)
[2017-12-02] MEDS ORDERED: 0.9 % Sodium Chloride 1,000 ML IVC ONE (21:17)
[2017-12-02] MEDS ORDERED: *HR* FentaNYL (PF) 100 MCG/2 ML VIAL IVP ONE (21:18)
[2017-12-02] MEDS ORDERED: Ondansetron 4 MG/2 ML VIAL IVP ONE (21:19)
--- NOTE | 2017-12-02 21:20 | Emergency Department Note ---
Disposition Clinical Impression: Abdominal pain Qualifiers: Abdominal location: lower abdomen, unspecified Qualified Code(s): R10.30 - Lower abdominal pain, unspecified Pneumonia Qualifiers: Pneumonia type: due to unspecified organism Laterality: right Lung location: unspecified part of lung Qualified Code(s): J18.9 - Pneumonia, unspecified organism Disposition: Admitted As Inpatient Condition: Good General Adult HPI - General Chief complaint: ED Abdominal Pain Stated complaint: Abdominal Pain Time Seen by Provider: 12/02/17 19:38 Source: patient, EMS Limitations: no limitations Nursing Notes Reviewed: Yes Vital Signs Reviewed: Yes - History of Present Illness HPI Narrative: 82-year-old male presents emergency Department with abdominal pain. Patient states that these have this worked up here over the last few days. Reports not having a bowel movement in 3 days. Reports nausea but no vomiting. Family is concerned that patient needs to be admitted to hospital. They state that he is having a difficult time at home taking care of his . Reports having one leg as being a limitation. Pain Scale: 10 - Related Data Home Medications Medication Instructions Recorded Confirmed Finasteride [Proscar] 5 mg PO HS 08/08/15 12/02/17 Furosemide [Lasix] 40 mg PO QAM 08/08/15 12/02/17 Losartan Potassium [Cozaar] 50 mg PO DAILY 08/08/15 12/02/17 Simvastatin [Zocor] 40 mg PO HS 08/08/15 12/02/17 Tamsulosin [Flomax] 0.4 mg PO DAILY 08/08/15 12/02/17 glipiZIDE [Glucotrol] 10 mg PO BID 08/08/15 12/02/17 Carvedilol 12.5 mg PO BID 06/01/16 12/02/17 Clopidogrel [Plavix] 75 mg PO DAILY 12/02/17 12/02/17 HYDROcodone/Acet 5/325 mg [[place] 1 tab PO Q6H PRN 12/02/17 12/02/17 5-325 mg] Insulin Glargine,Hum.rec.anlog 10 unit SQ 1900 12/02/17 12/02/17 [Basaglcharmaine Guerrero U-100] Allergies Allergy/AdvReac Type Severity Reaction Status Date / Time dabigatran etexilate AdvReac See Verified 06/21/18 22:01 [From Pradaxa] Comments All systems ED: reviewed and negative except as stated. Review of Systems: As Per HPI Constitutional: Denies: fever Cardiovascular: Denies: chest pain Respiratory: Denies: dyspnea Gastrointestinal: Reports: abdominal pain, nausea, constipation. Denies: vomiting, melena, hematochezia Genitourinary: Denies: urgency, dysuria, frequency Musculoskeletal: Denies: back pain, neck pain Integumentary: Denies: rash Neurological: Denies: headache, weakness, numbness, paresthesias Past Medical History - Past Medical History Medical history: Reports: arthritis, CHF, coronary artery disease, diabetes, hyperlipidemia, hypertension, peripheral artery disease, renal disease Surgical history: Reports: appendectomy, cholecystectomy, coronary bypass (CABG) , other, AICD Psychiatric history: Reports: no psych history - Social History Smoking Status: Former smoker Smokeless Tobacco Status: No Alcohol use: Reports: none Drug use: Reports: none Physical Exam - General Limitations: no limitations General appearance: alert - Head Head exam: atraumatic, normocephalic - Eye Eye exam: Present: EOMI - ENT ENT exam: normal oropharynx - Neck Neck exam: Present: trachea midline - Chest Chest inspection: Present: normal inspection, symmetric chest wall rise - Respiratory Respiratory exam: Present: normal lung sounds bilaterally. Absent: respiratory distress - Cardiovascular Cardiovascular exam: Present: regular rate, normal rhythm, normal heart sounds - Abdominal Exam Abdominal exam: Present: soft, tenderness. Absent: distention, guarding, rebound - Extremities Exam Extremities exam: Present: normal capillary refill - Back Exam Back exam: Absent: CVA tenderness (R), CVA tenderness (L) - Neurological Exam Neurological exam: Present: alert, oriented X3 - Psychiatric Psychiatric exam: Present: normal affect, normal mood - Skin Skin exam: Present: warm, dry, intact Course Vital Signs Temperature 99.6 F 12/02/17 19:28 Pulse Rate 78 12/02/17 19:28 Respiratory Rate 20 12/02/17 19:28 Blood Pressure 152/64 12/02/17 19:28 O2 Sat by Pulse Oximetry 98 12/02/17 19:28 Temperature 98.3 F 12/03/17 03:11 Pulse Rate 63 12/03/17 03:11 Respiratory Rate 16 12/03/17 03:11 Blood Pressure 111/58 12/03/17 03:11 O2 Sat by Pulse Oximetry 97 12/03/17 03:11 Oxygen Delivery Oxygen Delivery Nasal Cannula Medical Decision Making - MDM Narrative Medical decision making narrative: 82-year-old male presents emergency department with concern for abdominal pain. Family is frustrated that he do not have any answers as to what is causing it. CT scan of the abdomen and pelvis did not reveal any infective inflammatory process. Did however, reveal bibasilar reticular thickening and patchy areas of the right lower lobe and middle lobe groundglass attenuation of bronchiectasis. Findings may represent pneumonitis with underlying provocative changes. This time, we will cover patient for pneumonia. We will give patient Levaquin. Patient's abdominal pain was treated in the emergency department. Patient is labs do not reveal any changes. Creatinine is improved from previous. Urinalysis does not reveal any evidence of urinary tract infection. Patient will be admitted for management of his Levaquin as he is 82 years old and family is also requesting it. Hospitalist agreed to accept patient for admission. Hemodynamically stable and not in any acute distress at the time. Abdomen/Pelvis CT 12/02/17 20:23 IMPRESSION: 1. No acute infective or inflammatory process. 2. No urinary tract calculi. 3. Bibasilar reticular thickening and patchy areas of right lower lobe and middle lobe ground-glass attenuation with bronchiectasis. Findings may represent pneumonitis with underlying fibrotic changes. D/ / Jam Aragon MD / Jam Aragon MD Interpreting Provider: Jam Aragon MD Vital Signs Temperature 99.6 F 12/02/17 19:28 Pulse Rate 78 12/02/17 19:28 Respiratory Rate 20 12/02/17 19:28 Blood Pressure 152/64 12/02/17 19:28 O2 Sat by Pulse Oximetry 98 12/02/17 19:28 Temperature 98.3 F 12/03/17 03:11 Pulse Rate 63 12/03/17 03:11 Respiratory Rate 16 12/03/17 03:11 Blood Pressure 111/58 12/03/17 03:11 O2 Sat by Pulse Oximetry 97 12/03/17 03:11 Oxygen Delivery Oxygen Delivery Nasal Cannula - Lab Data Result diagrams: 12/02/17 19:48 12/02/17 19:48 Lab Results 12/02/17 12/02/17 12/02/17 Range/Units 19:48 19:48 19:57 WBC 6.2 (4.3-11.1) K/mcL RBC 3.52 L (4.19-5.50) M/mcL Hgb 11.6 L (12.9-16.9) g/dL Hct 33.4 L (37.5-50.1) % MCV 94.9 (83.0-100.0) fL MCH 33.0 (28.0-33.3) pg MCHC 34.7 (31.6-35.5) g/dL RDW 13.8 (11.5-14.5) % Plt Count 113 L (140-400) K/mcL MPV 10.6 (9.4-12.4) fL Immature Gran % 0.8 (0-4) % Seg Neutrophils % 80.1 % Lymphocytes % 7.8 % Monocytes % 8.9 % Eosinophils % 2.4 % Basophils % 0.0 % Neutrophils # 5.0 (1.6-8.9) K/mcL Lymphocytes # 0.5 L (0.6-4.6) K/mcL Monocytes # 0.6 (0.0-1.3) K/mcL Eosinophils # 0.2 (0.0-0.6) K/mcL Basophils # 0.0 (0.0-0.2) K/mcL Sodium 135 L (136-145) mEq/L Potassium 4.5 (3.5-5.1) mEq/L Chloride 101 (98-107) mEq/L Carbon Dioxide 25 (23-29) mEq/L BUN 29 H (8-23) mg/dL Creatinine 1.46 H (0.70-1.30) mg/dL Est GFR ( Amer) 56 L (> 60) Est GFR (Non-Af Amer) 46 L (> 60) BUN/Creatinine Ratio 20 (6-26) Glucose 307 H (70-105) mg/dL Calculated Osmolality 297 (280-300) Calcium 8.9 (8.6-10.3) mg/dL Total Bilirubin 0.6 (0.3-1.0) mg/dL Direct Bilirubin 0.2 (0.0-0.2) mg/dL Indirect Bilirubin 0.4 (0.0-1.2) mg/dL AST 12 L (13-39) Units/L ALT 8 (7-52) Units/L Alkaline Phosphatase 62 (34-104) Units/L Serum Total Protein 6.8 (6.4-8.9) g/dL Albumin 3.6 (3.5-5.7) g/dL Globulin 3.2 (2.4-3.5) g/dL Albumin/Globulin Ratio 1.1 (1.1-2.2) Amylase 35 (29-103) Units/L Lipase 20 (11-82) Units/L Urine Color Yellow (Yellow) Urine Clarity Clear (Clear) Urine pH 6.0 (5.0-8.0) pH Units Ur Specific [place] 1.018 (1.010-1.025) Urine Protein Trace (Neg-Trace) mg/dL Urine Glucose (UA) 500 H (Normal) mg/dL Urine Ketones Negative (Negative) mg/dL Urine Blood Negative (Negative) Urine Nitrite Negative (Negative) Urine Bilirubin Negative (Negative) Urine Urobilinogen Normal (Normal) mg/dL Ur Leukocyte Esterase Negative (Negative) Urine Microscopic RBC 0-3 (0-3) per hpf Urine Microscopic WBC 0-3 (0-3) per hpf Ur Squamous Epith Cells None Seen (None-Few) per lpf Urine Bacteria None Seen (None-Few) per hpf Hyaline Casts None Seen (None-Few) per lpf Ur Culture Indicated? NO (NO)
[2017-12-02] MEDS ORDERED: Levofloxacin 750 MG/150 ML 750 MG/150 ML BAG IVPB ONE (21:53)
[2017-12-03] MEDS ORDERED: Naloxone 0.4 MG/ML INJ IVP PRN (00:07)
--- NOTE | 2017-12-03 00:54 | Internal Med History&Physical ---
Date of Encounter: 12/03/17 Time of Encounter: 23:40 Internal Medicine - H&P: HPI Admitted From: Home Plans for Post Hospital Care: Home History of present illness: Mr. Del Rio is a 82 year old male Patient presented to the emergency room with abdominal pain that he has been experiencing for 5-6 days. Pain is central and lower abdomen, sharp in nature and it comes and goes. He cannot think of any instigating factors, and he cannot predict when the pain comes on. Pain medication does help. He denies dysuria, nausea, vomiting, diarrhea but he does say he is a little bit constipated. He performed a fleets enema on himself 3 days ago after being seen in the emergency room that day for the same complaint. It did not bring much relief. Patient came back to the emergency room and a repeat CT of his abdomen showed no acute infectious or inflammatory process, but it did show bibasilar reticular thickening and patchy groundglass attenuation in the right lower lobe. Patient denies cough, fever, shortness of breath and chest pain. This repeat CT did show resolved fluid level in the small bowel but also bilateral fat-containing hernias. Due to his finding of possible pneumonia, patient was admitted. Past Med Surg Social Fam HX - Past Medical History Medical history: arthritis, CHF, coronary artery disease, diabetes, hyperlipidemia, hypertension, peripheral artery disease, renal disease Additional medical history: prostate cancer Psychiatric history: no psych history - Past Surgical History Surgical History: appendectomy, cholecystectomy, coronary bypass (CABG), other, AICD Additional surgical history: OCTOBER 2015 LEFT AKA - Social History Smoking Status: Former smoker Packs per day: >1 Smokeless Tobacco Status: No Alcohol use: none Drug use: none - Family History Mother Living Status: Father Living Status: Hx Family Cardiac Disorders: No Hx Family Respiratory Disorders: No Hx Family Cancer: Yes (FATHER) Hx Family GI Disorders: No Hx Family Endocrine Disorder: Yes (SISTER) Hx Family Neuromuscular Disorders: No Hx Family Neurologic Disorders: Yes (brain tumor) Hx Family HEENT Disorders: No Hx Family Autoimmune Disorders: No Internal Medicine - H&P: Meds Finasteride [Proscar] 5 mg PO HS 08/08/15 [History] Furosemide [Lasix] 40 mg PO QAM 08/08/15 [History] Losartan Potassium [Cozaar] 50 mg PO DAILY 08/08/15 [History] Simvastatin [Zocor] 40 mg PO HS 08/08/15 [History] Tamsulosin [Flomax] 0.4 mg PO DAILY 08/08/15 [History] glipiZIDE [Glucotrol] 10 mg PO BID 08/08/15 [History] Carvedilol 12.5 mg PO BID 06/01/16 [History] Clopidogrel [Plavix] 75 mg PO DAILY 12/02/17 [History] HYDROcodone/Acet 5/325 mg [[place] 5-325 mg] 1 tab PO Q6H PRN 12/02/17 [History] Insulin Glargine,Hum.rec.anlog [Basaglar Kwikpen U-100] 10 unit SQ 1900 [History] 3 Allergy/AdvReac Type Severity Reaction Status Date / Time dabigatran etexilate AdvReac See Verified 12/02/17 22:01 [From Pradaxa] Comments All Systems PM: A 10-system review of systems was performed and is negative for pertinent findings except as documented above in the HPI. - Constitutional Vitals: Temp Pulse Resp BP Pulse Ox 99.1 F 79 17 140/62 99 12/02/17 22:43 12/02/17 22:43 12/02/17 22:43 12/02/17 22:43 12/02/17 22:43 General appearance: Present: mild distress, A&O X 3, pleasant - Eye Eye exam: Present: EOMI, normal appearance - Respiratory Respiratory exam: Present: rales. Absent: accessory muscle use, chest wall tenderness, respiratory distress, rhonchi, stridor, wheezes - Cardiovascular Cardiovascular exam: Present: RRR. Absent: diastolic murmur, systolic murmur - GI/Abdominal GI/Abdominal exam: Present: normal bowel sounds, tenderness. Absent: diminished bowel sounds Additional comments: Tenderness with palpation right lower quadrant and suprapubic. - Extremities Exam Extremities exam: Present: warm, radial pulses palpable and symmetrical. Absent : calf tenderness, tenderness Additional comments: Patient missing left leg above the knee - Back Exam Back exam: Absent: CVA tenderness (L), CVA tenderness (R), paraspinal tenderness - Neurological Exam Neurological exam: Present: oriented X3, strengths equal and symetr throughout. Absent: motor sensory deficit, facial droop, speech deficit - Skin Skin exam: Present: dry, warm. Absent: rash Internal Med - H&P Results - Labs CBC & Chem 7: 12/02/17 19:48 12/02/17 19:48 - Assessment and plan (1) Community acquired bacterial pneumonia Current Visit: No Status: Acute Assessment and plan: As evidenced by patient CT, patient has what appears to be a right lower lobe and middle lobe pneumonia. Levaquin was given to the patient in the emergency room prior to obtaining blood cultures unfortunately. Likely community-acquired , patient has not had antibiotics recently. Patient does not meet sepsis criteria. Continue Levaquin 750 mg Continue to monitor (2) Abdominal pain Current Visit: No Status: Acute Assessment and plan: Patient's abdominal pain may be slightly improved from his previous visit, CT did show resolution of a fluid level in his small bowel. He has had his appendix and gallbladder removed, and CT did not show any sign of kidney abnormality. He has no difficulty with urination and no dysuria. He is a little constipated however stating that he has not had a bowel movement since Wednesday, and that was only because he gave himself a Fleet enema. His abdominal pain could be secondary to constipation, as it appears he is constipated on his CT examas well. Start bowel regimen with Miralax and colace. Consider starting Senna as well until patient has a bowel movement. May need to repeat enema if no resulting bowel movement with this regimen. Qualifiers: Abdominal location: lower abdomen, unspecified Qualified Code(s): R10.30 - Lower abdominal pain, unspecified (3) Type 2 diabetes mellitus Current Visit: No Status: Chronic Assessment and plan: Patient is not insulin-dependent, takes glipizide 10 mg twice a day at home. Blood sugar in the emergency room was 307, which is elevated. Monitor blood sugars with meals and at night Sliding scale insulin with meals. Start basal insulin tonight, 10 units. Qualifiers: Diabetes mellitus rodent exterminator insulin use: with rodent exterminator use Diabetes mellitus complication status: with kidney complications Diabetes mellitus complication detail: with chronic kidney disease Chronic kidney disease stage : stage 3 (moderate) Qualified Code(s): E11.22 - Type 2 diabetes mellitus with diabetic chronic kidney disease; N18.3 - Chronic kidney disease, stage 3 ( moderate); Z79.4 - terminologist (current) use of insulin (4) Systolic heart failure Current Visit: No Status: Acute Assessment and plan: Chronic, patient takes carvedilol and losartan. Patient also has an AICD. Continue home meds. Qualifiers: Heart failure chronicity: chronic Qualified Code(s): I50.22 - Chronic systolic (congestive) heart failure (5) CAD (coronary artery disease) Current Visit: No Status: Chronic Assessment and plan: Patient has a history of coronary artery disease, takes clopidogrel, continue home meds. Qualifiers: Coronary Disease-Associated Artery/Lesion type: [place] artery [place] vs. transplanted heart: [place] heart Associated angina: without angina Qualified Code(s): I25.10 - Atherosclerotic heart disease of [place] coronary artery without angina pectoris (6) Hypertension Current Visit: No Status: Chronic Assessment and plan: Patient has a history of hypertension, takes losartan and carvedilol. Continue home meds. Qualifiers: Hypertension type: essential hypertension Qualified Code(s): I10 - Essential (primary) hypertension (7) DVT prophylaxis Current Visit: Yes Status: Acute Assessment and plan: heparin. - Time Spent With Patient Total time spent is greater than 50% in coordination of care (as documented) at patient's floor/unit and/or counseling patient: Greater than 35 minutes
[2017-12-03] MEDS ORDERED: *HR* Dextrose 50 % in Water (Syg) 50 ML SYRINGE IVP PRN (01:28)
[2017-12-03] MEDS ORDERED: D5% in Water 1,000 ML IVC PRN (01:28)
[2017-12-03] MEDS ORDERED: Dextrose Gel 15 GM/37.5 ML TUBE PO PRN ×2 (01:28)
[2017-12-03] MEDS: *HR* HYDROcodone/Acet 5/325 mg TABLET PO PRN ×4 (01:38→20:26)
--- NOTE | 2017-12-03 02:00 | Emergency Department Note ---
Disposition Clinical Impression: Abdominal pain Qualifiers: Abdominal location: lower abdomen, unspecified Qualified Code(s): R10.30 - Lower abdominal pain, unspecified Pneumonia Qualifiers: Pneumonia type: due to unspecified organism Laterality: right Lung location: unspecified part of lung Qualified Code(s): J18.9 - Pneumonia, unspecified organism Disposition: Admitted As Inpatient Condition: Good General Adult HPI - General Chief complaint: ED Abdominal Pain Stated complaint: Abdominal Pain Time Seen by Provider: 12/02/17 19:38 Source: patient, EMS Limitations: no limitations Nursing Notes Reviewed: Yes Vital Signs Reviewed: Yes - History of Present Illness Pain Scale: 0 - Related Data Home Medications Medication Instructions Recorded Confirmed Finasteride [Proscar] 5 mg PO HS 08/08/15 12/02/17 Furosemide [Lasix] 40 mg PO QAM 08/08/15 12/02/17 Losartan Potassium [Cozaar] 50 mg PO DAILY 08/08/15 12/02/17 Simvastatin [Zocor] 40 mg PO HS 08/08/15 12/02/17 Tamsulosin [Flomax] 0.4 mg PO DAILY 08/08/15 12/02/17 glipiZIDE [Glucotrol] 10 mg PO BID 08/08/15 12/02/17 Carvedilol 12.5 mg PO BID 06/01/16 12/02/17 Clopidogrel [Plavix] 75 mg PO DAILY 12/02/17 12/02/17 HYDROcodone/Acet 5/325 mg [[place] 1 tab PO Q6H PRN 12/02/17 12/02/17 5-325 mg] Insulin Glargine,Hum.rec.anlog 10 unit SQ 1900 12/02/17 12/02/17 [Basaglar Kwikpen U-100] Allergies Allergy/AdvReac Type Severity Reaction Status Date / Time dabigatran etexilate AdvReac See Verified 12/02/17 22:01 [From Pradaxa] Comments Past Medical History - Past Medical History Medical history: Reports: arthritis, CHF, coronary artery disease, diabetes, hyperlipidemia, hypertension, peripheral artery disease, renal disease Surgical history: Reports: appendectomy, cholecystectomy, coronary bypass (CABG) , other, AICD Psychiatric history: Reports: no psych history - Social History Smoking Status: Former smoker Smokeless Tobacco Status: No Alcohol use: Reports: none Drug use: Reports: none Physical Exam - General Limitations: no limitations General appearance: alert Course Vital Signs Temperature 99.6 F 12/02/17 19:28 Pulse Rate 78 12/02/17 19:28 Respiratory Rate 20 12/02/17 19:28 Blood Pressure 152/64 12/02/17 19:28 O2 Sat by Pulse Oximetry 98 12/02/17 19:28 Temperature 97.6 F 12/03/17 07:09 Pulse Rate 69 12/03/17 07:09 Respiratory Rate 16 12/03/17 07:09 Blood Pressure 145/71 12/03/17 07:09 O2 Sat by Pulse Oximetry 99 12/03/17 07:09 Oxygen Delivery Oxygen Delivery Nasal Cannula Medical Decision Making - Lab Data Result diagrams: 12/03/17 05:59 12/03/17 05:59 Lab Results 12/02/17 12/02/17 12/02/17 Range/Units 19:48 19:48 19:57 WBC 6.2 (4.3-11.1) K/mcL RBC 3.52 L (4.19-5.50) M/mcL Hgb 11.6 L (12.9-16.9) g/dL Hct 33.4 L (37.5-50.1) % MCV 94.9 (83.0-100.0) fL MCH 33.0 (28.0-33.3) pg MCHC 34.7 (31.6-35.5) g/dL RDW 13.8 (11.5-14.5) % Plt Count 113 L (140-400) K/mcL MPV 10.6 (9.4-12.4) fL Immature Gran % 0.8 (0-4) % Seg Neutrophils % 80.1 % Lymphocytes % 7.8 % Monocytes % 8.9 % Eosinophils % 2.4 % Basophils % 0.0 % Neutrophils # 5.0 (1.6-8.9) K/mcL Lymphocytes # 0.5 L (0.6-4.6) K/mcL Monocytes # 0.6 (0.0-1.3) K/mcL Eosinophils # 0.2 (0.0-0.6) K/mcL Basophils # 0.0 (0.0-0.2) K/mcL Sodium 135 L (136-145) mEq/L Potassium 4.5 (3.5-5.1) mEq/L Chloride 101 (98-107) mEq/L Carbon Dioxide 25 (23-29) mEq/L BUN 29 H (8-23) mg/dL Creatinine 1.46 H (0.70-1.30) mg/dL Est GFR ( Amer) 56 L (> 60) Est GFR (Non-Af Amer) 46 L (> 60) BUN/Creatinine Ratio 20 (6-26) Glucose 307 H (70-105) mg/dL Calculated Osmolality 297 (280-300) Calcium 8.9 (8.6-10.3) mg/dL Total Bilirubin 0.6 (0.3-1.0) mg/dL Direct Bilirubin 0.2 (0.0-0.2) mg/dL Indirect Bilirubin 0.4 (0.0-1.2) mg/dL AST 12 L (13-39) Units/L ALT 8 (7-52) Units/L Alkaline Phosphatase 62 (34-104) Units/L Serum Total Protein 6.8 (6.4-8.9) g/dL Albumin 3.6 (3.5-5.7) g/dL Globulin 3.2 (2.4-3.5) g/dL Albumin/Globulin Ratio 1.1 (1.1-2.2) Amylase 35 (29-103) Units/L Lipase 20 (11-82) Units/L Urine Color Yellow (Yellow) Urine Clarity Clear (Clear) Urine pH 6.0 (5.0-8.0) pH Units Ur Specific [place] 1.018 (1.010-1.025) Urine Protein Trace (Neg-Trace) mg/dL Urine Glucose (UA) 500 H (Normal) mg/dL Urine Ketones Negative (Negative) mg/dL Urine Blood Negative (Negative) Urine Nitrite Negative (Negative) Urine Bilirubin Negative (Negative) Urine Urobilinogen Normal (Normal) mg/dL Ur Leukocyte Esterase Negative (Negative) Urine Microscopic RBC 0-3 (0-3) per hpf Urine Microscopic WBC 0-3 (0-3) per hpf Ur Squamous Epith Cells None Seen (None-Few) per lpf Urine Bacteria None Seen (None-Few) per hpf Hyaline Casts None Seen (None-Few) per lpf Ur Culture Indicated? NO (NO) Attestation Statement - Attestation Attestation: I, Titus Ramirez MD, personally evaluated this patient and discussed their management with the resident physician. I reviewed the resident's note and agree with the documented findings, medical decision making, and plan of care. 82-year-old male presents to the emergency department with a complaint of mid lower abdominal pain in the suprapubic area for approximately 10 days prior to arrival. Patient was seen here about 4 days ago and had a workup including a CT scan. There was suggestion of a possible recent passage of the stone. He did follow-up with urology who advised him he did not have any evidence of a kidney stone. He returns tonight complaining of continued mid suprapubic pain. No fever. No vomiting or diarrhea. No urinary symptoms. He does admit to some cough with some clear sputum which is somewhat chronic and he has not noticed it being any worse than usual. He denies any chest pain or shortness of breath. On examination patient is a well-developed well-nourished well-appearing elderly male in no acute distress. He is alert and oriented 3. There is no cyanosis or diaphoresis. He does appear somewhat anxious. Breath sounds are clear and equal bilaterally. Heart regular rate and rhythm. Abdomen is soft with normal bowel sounds. There is mid suprapubic tenderness on direct palpation. No guarding or rebound tenderness. No CVA tenderness. Labs reviewed. CT the abdomen and pelvis was obtained and showed: 1. No acute infective or inflammatory process. 2. No urinary tract calculi. 3. Bibasilar reticular thickening and patchy areas of right lower lobe and middle lobe ground-glass attenuation with bronchiectasis. Findings may represent pneumonitis with underlying fibrotic changes. The hospitalist, Dr. Schuler, was consulted and accepted admission of the patient.
[2017-12-03] MEDS: Insulin DETEMIR 100 UNIT/ML X5UNITS SQ SCH ×2 (02:31→22:08)
[2017-12-03] MEDS: *HR* Heparin 5,000 UNIT/ML VIAL SQ SCH ×2 (05:28→17:03)
[2017-12-03 06:26] LABS: Mean Corpuscular HGB Conc 33.8 g/dL (31.6-35.5); Mean Corpuscular Hemoglobin 31.7 pg (28.0-33.3); Mean Corpuscular Volume 93.9 fL (83.0-100.0); Mean Platelet Volume 10.4 fL (9.4-12.4); Red Blood Count 3.09 M/mcL (4.19-5.50); Red Cell Distribution Width 13.6 % (11.5-14.5)
[2017-12-03 06:27] LABS: Hemoglobin 9.8 g/dL (12.9-16.9); Platelet Count 98 K/mcL (140-400)
[2017-12-03 06:44] LABS: BUN/Creatinine Ratio 20 (6-26); Blood Urea Nitrogen 25 mg/dL (8-23); Calcium 8.3 mg/dL (8.6-10.3); Carbon Dioxide 26 mEq/L (23-29); Chloride 106 mEq/L (98-107); Glucose 119 mg/dL (70-105); Osmolality,Calculated 290 (280-300); Potassium 4.2 mEq/L (3.5-5.1); Sodium 137 mEq/L (136-145); eGFR For African Americans > 60 (> 60); eGFR For Non-African Americans 57 (> 60)
[2017-12-03] MEDS: levoFLOXacin 750 MG TABLET PO SCH (07:52)
[2017-12-03] MEDS: Insulin LISPRO 300 UNITS/3 ML VIAL SQ SCH ×3 (07:53→15:53)
[2017-12-03] MEDS ORDERED: Bisacodyl 10 MG RECTAL SUPPOSITORY RC PRN (10:26)
--- NOTE | 2017-12-03 10:32 | Internal Med Progress Note ---
Date of Encounter: 12/03/17 Time of Encounter: 10:31 - Assessment and plan (1) Community acquired bacterial pneumonia Current Visit: No Status: Acute Assessment and plan: 1 CT did reveal what appears to be right lower lobe and middle lobe pneumonia continue her Levaquin-apparently Levaquin was given to the patient emergency room prior to obtaining blood cultures Oxygen as needed Bronchodilators as needed (2) Abdominal pain Current Visit: Yes Status: Acute Assessment and plan: Patient states his abdomen pain slightly improved CT did show resolution of fluid level in the small bowel he has had his appendix and gallbladder removed CT did not show any signs of kidney abnormality no difficulty urinating no dysuria he is experiencing constipation and he did take a fleets enema earlier this week suspect possible constipation continue MiraLAX and Colace we will start on senna until patient has bowel movement Patient was given Dulcolax suppository today May need to repeat enema if no bowel movements resulted from laxative regimen Qualifiers: Abdominal location: lower abdomen, unspecified Qualified Code(s): R10.30 - Lower abdominal pain, unspecified (3) Systolic heart failure Current Visit: No Status: Acute Assessment and plan: Chronic continue with carvedilol and [place]-he has AICD Continue with home medications Monitor intake and output daily weights Qualifiers: Heart failure chronicity: chronic Qualified Code(s): I50.22 - Chronic systolic (congestive) heart failure (4) CAD (coronary artery disease) Current Visit: No Status: Chronic Assessment and plan: Continue with home medications Qualifiers: Coronary Disease-Associated Artery/Lesion type: [place] artery [place] vs. transplanted heart: [place] heart Associated angina: without angina Qualified Code(s): I25.10 - Atherosclerotic heart disease of [place] coronary artery without angina pectoris (5) Hypertension Current Visit: No Status: Chronic Assessment and plan: Stable continue losartan and carvedilol Qualifiers: Hypertension type: essential hypertension Qualified Code(s): I10 - Essential (primary) hypertension (6) Type 2 diabetes mellitus Current Visit: No Status: Chronic Assessment and plan: We will hold oral medications Accu-Cheks before meals and at bedtime with sliding scale insulin Qualifiers: Diabetes mellitus senior living insulin use: with intermediate card tender use Diabetes mellitus complication status: with kidney complications Diabetes mellitus complication detail: with chronic kidney disease Chronic kidney disease stage : stage 3 (moderate) Qualified Code(s): E11.22 - Type 2 diabetes mellitus with diabetic chronic kidney disease; N18.3 - Chronic kidney disease, stage 3 ( moderate); Z79.4 - correction (current) use of insulin (7) DVT prophylaxis Current Visit: Yes Status: Acute Assessment and plan: Heparin subcutaneous - Time Spent With Patient Total time spent is greater than 50% in coordination of care (as documented) at patient's floor/unit and/or counseling patient: - Subjective Interval history: Patient seen and examined at bedside, complains of abd pain No SOB or CP - Constitutional Vitals: Temp Pulse Resp BP Pulse Ox 97.6 F 69 16 145/71 99 12/03/17 07:09 12/03/17 07:09 12/03/17 07:09 12/03/17 07:09 12/03/17 07:09 General appearance: Present: mild distress, A&O X 3, pleasant - Head Head exam: Present: atraumatic, normocephalic - Eye Eye exam: Present: PERRL, conjuntiva pink, sclera anicteric Pupils: Present: PERRL - Neck Neck exam general surgery: Present: supple, trachea midline. Absent: lymphadenopathy - Respiratory Respiratory exam: Present: CTAB. Absent: accessory muscle use, rales, rhonchi, wheezes - Cardiovascular Cardiovascular exam: Present: RRR, +S1, +S2. Absent: diastolic murmur, gallop, rubs, systolic murmur - GI/Abdominal GI/Abdominal exam: Present: normal bowel sounds, soft, no peritoneal signs. Absent: distended, tenderness - Extremities Exam Extremities exam: Present: warm, radial pulses palpable and symmetrical. Absent : calf tenderness, cyanotic, pedal edema - Neurological Exam Neurological exam: Present: CN II-XII intact, oriented X3, no focal deficits. Absent: pronater drift, facial droop, speech deficit - Skin Skin exam: Present: dry, intact Internal Medicine: Result - Labs CBC & Chem 7: 12/03/17 05:59 12/03/17 05:59 Labs: Short CBC 12/03/17 Range/Units 05:59 WBC 5.5 (4.3-11.1) K/mcL Hgb 9.8 L D (12.9-16.9) g/dL Hct 29.0 L (37.5-50.1) % Plt Count 98 L (140-400) K/mcL BMP 12/03/17 05:59 Sodium 137 Potassium 4.2 Chloride 106 Carbon Dioxide 26 BUN 25 H Creatinine 1.22 Glucose 119 H Calcium 8.3 L Consult Discharge Plan - Plan Referrals: Celina Tovar MD [Primary Care Provider] - 12/13/17 11:15 am ()
[2017-12-03] MEDS: Sennosides 8.6 MG TABLET PO SCH (17:03)
[2017-12-03] MEDS: Finasteride 5 MG TABLET PO SCH (20:25)
[2017-12-03] MEDS ORDERED: Acetaminophen 325 MG TABLET PO PRN (23:03)
[2017-12-04] MEDS: *HR* HYDROcodone/Acet 5/325 mg TABLET PO PRN ×4 (03:12→22:04)
[2017-12-04 04:51] LABS: Basophils % 0.2 %; Eosinophils # 0.1 K/mcL (0.0-0.6); Eosinophils % 2.5 %; Hematocrit 30.1 % (37.5-50.1); Hemoglobin 10.2 g/dL (12.9-16.9); Immature Granulocytes % 0.8 % (0-4); Lymphocytes # 0.6 K/mcL (0.6-4.6); Lymphocytes % 12.1 %; Mean Corpuscular HGB Conc 33.9 g/dL (31.6-35.5); Mean Corpuscular Hemoglobin 32.2 pg (28.0-33.3); Mean Platelet Volume 10.7 fL (9.4-12.4); Monocytes # 0.7 K/mcL (0.0-1.3); Neutrophils # 3.8 K/mcL (1.6-8.9); Platelet Count 123 K/mcL (140-400); Red Blood Count 3.17 M/mcL (4.19-5.50); Red Cell Distribution Width 13.5 % (11.5-14.5); Segmented Neutrophils % 71.4 %
[2017-12-04 05:03] LABS: Calcium 8.8 mg/dL (8.6-10.3); Potassium 4.7 mEq/L (3.5-5.1)
[2017-12-04] MEDS: *HR* Heparin 5,000 UNIT/ML VIAL SQ SCH ×2 (05:55→17:35)
[2017-12-04] MEDS: levoFLOXacin 750 MG TABLET PO SCH (09:18)
[2017-12-04] MEDS: Insulin LISPRO 300 UNITS/3 ML VIAL SQ SCH ×3 (09:19→17:35)
[2017-12-04] MEDS: Sennosides 8.6 MG TABLET PO SCH (09:19)
--- NOTE | 2017-12-04 09:40 | Internal Med Progress Note ---
Date of Encounter: 12/04/17 Time of Encounter: 09:39 - Assessment and plan (1) Respiratory failure with hypoxia Current Visit: Yes Status: Acute Assessment and plan: 1 most likely related to pneumonia. He is requiring supplemental oxygen maintaining his sats above 92% however he does not use oxygen at home. We will add bronchodilators Incentive spirometry Encouraged patient to ambulate May need 6 minute walk to see if patient qualifies for oxygen Qualifiers: Chronicity: acute Qualified Code(s): J96.01 - Acute respiratory failure with hypoxia (2) Community acquired bacterial pneumonia Current Visit: No Status: Acute Assessment and plan: 1 CT did reveal what appears to be right lower lobe and middle lobe pneumonia continue her Levaquin-apparently Levaquin was given to the patient emergency room prior to obtaining blood cultures Oxygen as needed-patient continues to require oxygen supplementation maintaining sats above 92% we will attempt to wean oxygen Bronchodilators as needed Incentive spirometry Encourage patient to ambulate (3) Abdominal pain Current Visit: Yes Status: Acute Assessment and plan: Patient states his abdomen pain slightly improved CT did show resolution of fluid level in the small bowel he has had his appendix and gallbladder removed CT did not show any signs of kidney abnormality no difficulty urinating no dysuria he is experiencing constipation and he did take a fleets enema earlier this week suspect possible constipation continue MiraLAX and Colace we will start on senna until patient has bowel movement Patient was given Dulcolax suppository today Patient was given fleets enema overnight and had a small formed bowel movement. We will try avoid fleets enemas since patient does have a history of CK D. Continue with MiraLAX Colace and Senokot Qualifiers: Abdominal location: lower abdomen, unspecified Qualified Code(s): R10.30 - Lower abdominal pain, unspecified (4) Systolic heart failure Current Visit: No Status: Acute Assessment and plan: Chronic continue with carvedilol and Galdino-he has AICD Continue with home medications Monitor intake and output daily weights Patient is requiring oxygen supplementation we will check BNP as well as chest x -ray no lower extremity swelling no crackles noted Qualifiers: Heart failure chronicity: chronic Qualified Code(s): I50.22 - Chronic systolic (congestive) heart failure (5) CAD (coronary artery disease) Current Visit: No Status: Chronic Assessment and plan: Continue with home medications Qualifiers: Coronary Disease-Associated Artery/Lesion type: [place] artery [place] vs. transplanted heart: [place] heart Associated angina: without angina Qualified Code(s): I25.10 - Atherosclerotic heart disease of [place] coronary artery without angina pectoris (6) Hypertension Current Visit: No Status: Chronic Assessment and plan: Stable continue losartan and carvedilol Qualifiers: Hypertension type: essential hypertension Qualified Code(s): I10 - Essential (primary) hypertension (7) Type 2 diabetes mellitus Current Visit: No Status: Chronic Assessment and plan: We will hold oral medications Accu-Cheks before meals and at bedtime with sliding scale insulin Qualifiers: Diabetes mellitus senior care insulin use: with termite control technician use Diabetes mellitus complication status: with kidney complications Diabetes mellitus complication detail: with chronic kidney disease Chronic kidney disease stage : stage 3 (moderate) Qualified Code(s): E11.22 - Type 2 diabetes mellitus with diabetic chronic kidney disease; N18.3 - Chronic kidney disease, stage 3 ( moderate); Z79.4 - terminal supervisor (current) use of insulin (8) DVT prophylaxis Current Visit: Yes Status: Acute Assessment and plan: Heparin subcutaneous - Time Spent With Patient Total time spent is greater than 50% in coordination of care (as documented) at patient's floor/unit and/or counseling patient: - Subjective Interval history: Patient seen and examined at bedside, Complains of being weak, cont on O2 not on O2 at home, will have PT/OT eval patient - Constitutional Vitals: Temp Pulse Resp BP Pulse Ox 98.1 F 78 16 145/75 93 12/04/17 07:17 12/04/17 07:17 12/04/17 07:17 12/04/17 07:17 12/04/17 07:17 General appearance: Present: mild distress, A&O X 3, pleasant - Eye Eye exam: Present: PERRL, conjuntiva pink, sclera anicteric Pupils: Present: PERRL - Neck Neck exam general surgery: Present: supple, trachea midline. Absent: lymphadenopathy - Respiratory Respiratory exam: Present: CTAB. Absent: accessory muscle use, rales, rhonchi, wheezes - Cardiovascular Cardiovascular exam: Present: RRR, +S1, +S2. Absent: diastolic murmur, gallop, rubs, systolic murmur - GI/Abdominal GI/Abdominal exam: Present: normal bowel sounds, soft, no peritoneal signs. Absent: distended, tenderness - Extremities Exam Extremities exam: Present: warm, radial pulses palpable and symmetrical. Absent : calf tenderness, cyanotic, pedal edema - Neurological Exam Neurological exam: Present: CN II-XII intact, oriented X3, no focal deficits. Absent: pronater drift, facial droop, speech deficit - Skin Skin exam: Present: dry, intact Internal Medicine: Result - Labs CBC & Chem 7: 12/04/17 03:08 12/04/17 03:08 Labs: Short CBC 12/04/17 Range/Units 03:08 WBC 5.3 (4.3-11.1) K/mcL Hgb 10.2 L (12.9-16.9) g/dL Hct 30.1 L (37.5-50.1) % Plt Count 123 L (140-400) K/mcL Neutrophils # 3.8 (1.6-8.9) K/mcL BMP 12/04/17 03:08 Sodium 138 Potassium 4.7 Chloride 106 Carbon Dioxide 26 BUN 24 H Creatinine 1.44 H Glucose 112 H Calcium 8.8 Consult Discharge Plan - Plan Referrals: Celina Tovar MD [Primary Care Provider] - 12/13/17 11:15 am ()
[2017-12-04] MEDS: Ipratropium/Albuterol Neb 3 ML IH SCH ×2 (15:42→22:33)
[2017-12-04] MEDS: Finasteride 5 MG TABLET PO SCH (20:47)
[2017-12-04] MEDS: Insulin DETEMIR 100 UNIT/ML X5UNITS SQ SCH (20:48)
[2017-12-05] MEDS: Ipratropium/Albuterol Neb 3 ML IH SCH ×2 (03:12→10:34)
[2017-12-05] MEDS: *HR* HYDROcodone/Acet 5/325 mg TABLET PO PRN ×2 (04:06→10:10)
[2017-12-05] MEDS: *HR* Heparin 5,000 UNIT/ML VIAL SQ SCH (05:41)
--- NOTE | 2017-12-05 08:35 | Internal Med Progress Note ---
Date of Encounter: 12/05/17 Time of Encounter: 08:34 - Assessment and plan (1) Acute on chronic systolic (congestive) heart failure Current Visit: No Status: Acute Assessment and plan: Patient requiring oxygen supplementation to maintain sats greater than 92%. Chest x-ray does show some vascular congestion as well as an elevated BNP. We will give patient 40 mg IV Lasix daily Monitor intake and output daily weights 1500 mL fluid restriction (2) Respiratory failure with hypoxia Current Visit: Yes Status: Acute Assessment and plan: 1 chest x-ray does reveal vascular congestion he has an elevated BNP most likely this is related to CHF exacerbation. We will give IV Lasix continue with oxygen attempt to wean Performed a 6 minute walk patient may require home O2 Qualifiers: Chronicity: acute Qualified Code(s): J96.01 - Acute respiratory failure with hypoxia (3) Community acquired bacterial pneumonia Current Visit: No Status: Acute Assessment and plan: 1 CT did reveal what appears to be right lower lobe and middle lobe pneumonia continue her Levaquin-apparently Levaquin was given to the patient emergency room prior to obtaining blood cultures Oxygen as needed-patient continues to require oxygen supplementation maintaining sats above 92% we will attempt to wean oxygen Bronchodilators as needed Incentive spirometry Encourage patient to ambulate (4) Abdominal pain Current Visit: Yes Status: Acute Assessment and plan: This has improved we will continue with MiraLAX and Colace patient is taking pain medication which could be contributing to constipation Qualifiers: Abdominal location: lower abdomen, unspecified Qualified Code(s): R10.30 - Lower abdominal pain, unspecified (5) Systolic heart failure Current Visit: No Status: Acute Assessment and plan: Chronic continue with carvedilol and Galdino-he has AICD Continue with home medications Monitor intake and output daily weights 1500 mL fluid restriction Low-salt Lasix 40 mg IV daily Qualifiers: Heart failure chronicity: chronic Qualified Code(s): I50.22 - Chronic systolic (congestive) heart failure (6) CAD (coronary artery disease) Current Visit: No Status: Chronic Assessment and plan: Continue with home medications Qualifiers: Coronary Disease-Associated Artery/Lesion type: [place] artery [place] vs. transplanted heart: [place] heart Associated angina: without angina Qualified Code(s): I25.10 - Atherosclerotic heart disease of [place] coronary artery without angina pectoris (7) Hypertension Current Visit: No Status: Chronic Assessment and plan: Stable continue losartan and carvedilol Qualifiers: Hypertension type: essential hypertension Qualified Code(s): I10 - Essential (primary) hypertension (8) Type 2 diabetes mellitus Current Visit: No Status: Chronic Assessment and plan: We will hold oral medications Accu-Cheks before meals and at bedtime with sliding scale insulin -glucose stable at this time Qualifiers: Diabetes mellitus technician terminal and repeater insulin use: with residential use Diabetes mellitus complication status: with kidney complications Diabetes mellitus complication detail: with chronic kidney disease Chronic kidney disease stage : stage 3 (moderate) Qualified Code(s): E11.22 - Type 2 diabetes mellitus with diabetic chronic kidney disease; N18.3 - Chronic kidney disease, stage 3 ( moderate); Z79.4 - roasterman (current) use of insulin (9) DVT prophylaxis Current Visit: Yes Status: Acute Assessment and plan: Heparin subcutaneous - Time Spent With Patient Total time spent is greater than 50% in coordination of care (as documented) at patient's floor/unit and/or counseling patient: - Subjective Interval history: Patient seen and examined at bedside, Complains of being weak, cont on O2 not on O2 at home, will have PT/OT eval patient-did discuss treatment plan with patient who verbalized understanding - Constitutional Vitals: Temp Pulse Resp BP Pulse Ox 98.1 F 75 17 147/77 97 12/05/17 08:26 12/05/17 08:26 12/05/17 08:26 12/05/17 08:26 12/05/17 08:26 General appearance: Present: mild distress, A&O X 3, pleasant - Head Head exam: Present: atraumatic, normocephalic - Eye Eye exam: Present: PERRL, conjuntiva pink, sclera anicteric Pupils: Present: PERRL - Neck Neck exam general surgery: Present: supple, trachea midline. Absent: lymphadenopathy - Respiratory Respiratory exam: Present: CTAB. Absent: accessory muscle use, rales, rhonchi, wheezes - Cardiovascular Cardiovascular exam: Present: RRR, +S1, +S2. Absent: diastolic murmur, gallop, rubs, systolic murmur - GI/Abdominal GI/Abdominal exam: Present: normal bowel sounds, soft, no peritoneal signs. Absent: distended, tenderness - Extremities Exam Extremities exam: Present: warm, radial pulses palpable and symmetrical. Absent : calf tenderness, cyanotic, pedal edema - Neurological Exam Neurological exam: Present: CN II-XII intact, oriented X3, no focal deficits. Absent: pronater drift, facial droop, speech deficit - Skin Skin exam: Present: dry, intact Internal Medicine: Result - Labs CBC & Chem 7: 12/04/17 03:08 12/04/17 03:08 - Impressions Impressions Chest X-Ray 12/04/17 11:40 IMPRESSION: Mild pulmonary vascular congestion with no acute finding or significant change. D/ / Dain Baum MD / Dain Baum MD Interpreting Provider: Dain Baum MD Consult Discharge Plan - Plan Referrals: Celina Tovar MD [Primary Care Provider] - 12/13/17 11:15 am ()
[2017-12-05] MEDS: Insulin LISPRO 300 UNITS/3 ML VIAL SQ SCH ×2 (08:42→11:51)
[2017-12-05] MEDS: levoFLOXacin 750 MG TABLET PO SCH (08:51)
[2017-12-05] MEDS: Sennosides 8.6 MG TABLET PO SCH (08:51)
[2017-12-05] MEDS ORDERED: Furosemide 40 MG/4 ML VIAL IVP SCH (09:00)
[2017-12-05 11:45] LABS: Calcium 8.9 mg/dL (8.6-10.3); Potassium 4.2 mEq/L (3.5-5.1)
[2017-12-05 11:49] VITALS: BP 129/71
[2017-12-05 12:27] LABS: Basophils % 0.2 %; Eosinophils # 0.1 K/mcL (0.0-0.6); Eosinophils % 3.2 %; Hemoglobin 10.1 g/dL (12.9-16.9); Immature Granulocytes % 0.7 % (0-4); Lymphocytes # 0.6 K/mcL (0.6-4.6); Lymphocytes % 14.5 %; Mean Corpuscular HGB Conc 33.7 g/dL (31.6-35.5); Mean Corpuscular Hemoglobin 31.9 pg (28.0-33.3); Mean Corpuscular Volume 94.6 fL (83.0-100.0); Mean Platelet Volume 10.4 fL (9.4-12.4); Monocytes # 0.5 K/mcL (0.0-1.3); Monocytes % 10.9 %; Neutrophils # 3.1 K/mcL (1.6-8.9); Platelet Count 123 K/mcL (140-400); Red Blood Count 3.17 M/mcL (4.19-5.50); Red Cell Distribution Width 13.6 % (11.5-14.5); Segmented Neutrophils % 70.5 %
--- NOTE | 2017-12-05 15:51 | Discharge Summary ---
- NOTES TO OUTPATIENT PROVIDER Notes to Outpatient Provider: Patient was treated for 3 acquired pneumonia received Levaquin Date of Encounter: 12/05/17 Time of Encounter: 15:48 - Discharge Diagnosis (1) Acute on chronic systolic (congestive) heart failure Priority: Secondary Status: Acute (2) Respiratory failure with hypoxia Priority: Secondary Status: Resolved Qualifiers: Chronicity: acute Qualified Code(s): J96.01 - Acute respiratory failure with hypoxia (3) Community acquired bacterial pneumonia Priority: Secondary Status: Acute (4) Abdominal pain Priority: Secondary Status: Acute Qualifiers: Abdominal location: lower abdomen, unspecified Qualified Code(s): R10.30 - Lower abdominal pain, unspecified (5) Systolic heart failure Priority: Secondary Status: Acute Qualifiers: Heart failure chronicity: chronic Qualified Code(s): I50.22 - Chronic systolic (congestive) heart failure (6) CAD (coronary artery disease) Priority: Secondary Status: Chronic Qualifiers: Coronary Disease-Associated Artery/Lesion type: [place] artery [place] vs. transplanted heart: [place] heart Associated angina: without angina Qualified Code(s): I25.10 - Atherosclerotic heart disease of [place] coronary artery without angina pectoris (7) Hypertension Priority: Secondary Status: Chronic Qualifiers: Hypertension type: essential hypertension Qualified Code(s): I10 - Essential (primary) hypertension (8) Type 2 diabetes mellitus Priority: Secondary Status: Chronic Qualifiers: Diabetes mellitus prison insulin use: with coat joiner use Diabetes mellitus complication status: with kidney complications Diabetes mellitus complication detail: with chronic kidney disease Chronic kidney disease stage : stage 3 (moderate) Qualified Code(s): E11.22 - Type 2 diabetes mellitus with diabetic chronic kidney disease; N18.3 - Chronic kidney disease, stage 3 ( moderate); Z79.4 - custodial (current) use of insulin Hospital course: Mr. Del Rio is a 82 year old male past medical history of arthritis CHF coronary disease diabetes hyperlipidemia hypertension peripheral artery disease above-the -knee amputation left leg and renal disease patient presented to the emergency room with complaints of abdominal pain for the past 5-6 days [place] in [place] which comes and goes he denies any nausea vomiting diarrhea or dysuria states he has been constipated agent give himself a Fleet's enema 3 days ago after being seen in the emergency room for the same complaint. He did not bring much relief. CT of the abdomen showed no acute infectious or inflammatory process but did show a bibasilar reticular thickening and patchy groundglass attenuation in the right liver lobe patient denies coffee or shortness of breath or chest pain. Repeat CT did show results fluid levels in the small bowel but also bilateral fat-containing hernias patient was admitted for pneumonia. He was given IV Levaquin. He continued to complain of constipation and was given MiraLAX and Colace in senna as well as a liters enema which did result in a BM. Patient's abdomen pain did improve. Patient did have somewhat is low SPO2 yesterday requiring oxygen. Chest x-ray did show vascular congestion as well as elevated BNP 700. She was given IV Lasix today. Patient states he feels much better SPO2 has improved back to baseline lung sounds are clear shortness of breath cough or fever. I advised patient to follow-up with his primary care provider since this provider knows him best and can adjust medications accordingly. I did give the patient prescription for Levaquin and continued his home medication of Lasix. I answered patient's questions. Patient is hemodynamically stable and ready for discharge. Discharge discussed with: patient - Time Spent with Patient Total time spent providing and/or coordinating discharge services: - Discharge Medications Prescriptions: levoFLOXacin [Levaquin] 750 mg PO DAILY #2 tablet Home Medications: Finasteride [Proscar] 5 mg PO HS 08/08/15 [History] Furosemide [Lasix] 40 mg PO QAM 08/08/15 [History] Losartan Potassium [Cozaar] 50 mg PO DAILY 08/08/15 [History] Simvastatin [Zocor] 40 mg PO HS 08/08/15 [History] Tamsulosin [Flomax] 0.4 mg PO DAILY 08/08/15 [History] glipiZIDE [Glucotrol] 10 mg PO BID 08/08/15 [History] Carvedilol 12.5 mg PO BID 06/01/16 [History] Clopidogrel [Plavix] 75 mg PO DAILY 12/02/17 [History] HYDROcodone/Acet 5/325 mg [[place] 5-325 mg] 1 tab PO Q6H PRN 12/02/17 [History] Insulin Glargine,Hum.rec.anlog [Basaglar Kwikpen U-100] 10 unit SQ 1900 [History] levoFLOXacin [Levaquin] 750 mg PO DAILY #2 tablet 12/05/17 [Rx] Allergies/Adverse Reactions: 3 Allergy/AdvReac Type Severity Reaction Status Date / Time dabigatran etexilate AdvReac See Verified 12/02/17 22:01 [From Pradaxa] Comments Date of admission: 12/02/17 22:03 Primary care physician: Celina Tovar Consults: 12/03/17 08:16 Consult to Nurse Navigator [CONS] Routine Comment: PNEUMONIA 12/04/17 09:40 Consult to Occupational Therapy [CONS] Routine Comment: Evaluate, develop and implement POC Reason for Consult: weakness Does patient have active BEDREST order?: No Is patient medically & hemodynamically stable?: Yes Patient assessed for mobility or mobilized this visit?: No Consult to Physical Therapy [CONS] Routine Comment: Evaluate, develop and implement POC Reason for Consult: weakness Does patient have active BEDREST order?: No Is patient medically & hemodynamically stable?: Yes Patient assessed for mobility or mobilized this visit?: No Discharging clinician: Lalitha Vanegas Anticipated date of discharge: 12/05/17 - Constitutional Vitals: Temp Pulse Resp BP Pulse Ox 97.9 F 68 17 129/71 94 12/05/17 11:42 12/05/17 11:42 12/05/17 11:42 12/05/17 11:42 12/05/17 11:42 General appearance: Present: A&O X 3, pleasant - Head Head exam: Present: atraumatic, normocephalic - Eye Eye exam: Present: PERRL, conjuntiva pink, sclera anicteric Pupils: Present: PERRL - Neck Neck exam general surgery: Present: supple, trachea midline. Absent: lymphadenopathy - Respiratory Respiratory exam: Present: CTAB. Absent: accessory muscle use, rales, rhonchi, wheezes - Cardiovascular Cardiovascular exam: Present: RRR, +S1, +S2. Absent: diastolic murmur, gallop, rubs, systolic murmur - GI/Abdominal GI/Abdominal exam: Present: normal bowel sounds, soft, no peritoneal signs. Absent: distended, tenderness - Extremities Exam Extremities exam: Present: warm, radial pulses palpable and symmetrical. Absent : calf tenderness, cyanotic, pedal edema - Neurological Exam Neurological exam: Present: CN II-XII intact, oriented X3, no focal deficits. Absent: pronater drift, facial droop, speech deficit - Skin Skin exam: Present: dry, intact - Patient Status Disposition: Home, Self-Care Condition: Good Overall status at discharge: patient is back to baseline - Discharge Instructions Instructions: Pneumonia (DC) Follow Up With: Celina Tovar MD [Primary Care Provider] - 12/13/17 11:15 am () - Diet and Activity Activity: increase activity as tolerated Diet: advance to your usual diet
== END 2017-12-05 17:05 | disposition home or self-care (01) ==
LOC: EMEROO 19:23 → 3BNU 19:23
PROVIDERS: ADMIT Family Medicine; ATTEND Family Medicine

== ENCOUNTER 2017-12-08 02:23 | Observation (INO) ==
--- NOTE | 2017-12-08 02:34 | Emergency Department Note ---
Disposition Clinical Impression: Elevated troponin CHF exacerbation Qualifiers: Heart failure type: unspecified Qualified Code(s): I50.9 - Heart failure, unspecified Dyspnea Qualifiers: Dyspnea type: unspecified Qualified Code(s): R06.00 - Dyspnea, unspecified Disposition: Admitted As Inpatient Condition: Undetermined Time of Disposition: 03:42 SOB HPI - General Chief Complaint: ED Shortness of Breath/Dyspnea Stated Complaint: weakness Time Seen by Provider: 12/08/17 02:24 Source: patient, EMS Mode of arrival: EMS Limitations: no limitations Nursing Notes Reviewed: Yes Vital Signs Reviewed: Yes - History of Present Illness 82-year-old male with recent admission to the hospital for possible pneumonia, Lucy the emergency department with complaint of shortness of breath. The patient states that he was recently admitted for this possible pneumonia and he states that earlier this evening he started experiencing worsening shortness of breath. Patient states it woke him up from sleep. Upon review of the records the patient was noted that he had acute congestive heart failure as well. The patient was treated with Levaquin and diuretics and the patient's respiratory status improved. The patient denies any other complaints at this time including no chest pain, abdominal pain, nausea, vomiting, unilateral leg swelling, hemoptysis. The patient has had no fevers and no sputum production noted. - Related Data Home Medications Medication Instructions Recorded Confirmed Finasteride [Proscar] 5 mg PO HS 08/08/15 12/02/17 Furosemide [Lasix] 40 mg PO QAM 08/08/15 12/02/17 Losartan Potassium [Cozaar] 50 mg PO DAILY 08/08/15 12/02/17 Simvastatin [Zocor] 40 mg PO HS 08/08/15 12/02/17 Tamsulosin [Flomax] 0.4 mg PO DAILY 08/08/15 12/02/17 glipiZIDE [Glucotrol] 10 mg PO BID 08/08/15 12/02/17 Carvedilol 12.5 mg PO BID 06/01/16 12/02/17 Clopidogrel [Plavix] 75 mg PO DAILY 12/02/17 12/02/17 HYDROcodone/Acet 5/325 mg [[place] 1 tab PO Q6H PRN 12/02/17 12/02/17 5-325 mg] Insulin Glargine,Hum.rec.anlog 10 unit SQ 1900 12/02/17 12/02/17 [Manasa Guerrero U-100] Previous Rx's Medication Instructions Recorded levoFLOXacin [Levaquin] 750 mg PO DAILY #2 tablet 12/05/17 Allergies Allergy/AdvReac Type Severity Reaction Status Date / Time dabigatran etexilate AdvReac See Verified 12/02/17 22:01 [From Pradaxa] Comments All systems ED: reviewed and negative except as stated. Constitutional: Reports: weakness. Denies: fever, chills ENT ED: Denies: congestion Cardiovascular: Denies: chest pain, palpitations, dyspnea on exertion, edema Respiratory: Reports: cough, dyspnea. Denies: wheezes, hemoptysis, sputum production Gastrointestinal: Denies: abdominal pain, nausea, vomiting Genitourinary: Denies: urgency, dysuria Musculoskeletal: Denies: back pain, neck pain Integumentary: Denies: rash Neurological: Denies: headache Past Medical History - Past Medical History Attestation: Yes The following information was validated with the patient. Source: patient, old records reviewed Medical history: Reports: arthritis, CHF, coronary artery disease, diabetes, hyperlipidemia, hypertension, peripheral artery disease, renal disease Surgical history: Reports: appendectomy, cholecystectomy, coronary bypass (CABG) , other, AICD Psychiatric history: Reports: no psych history - Social History Smoking Status: Former smoker Smokeless Tobacco Status: No Alcohol use: Reports: none Drug use: Reports: none Physical Exam - General Limitations: no limitations General appearance: alert, in no apparent distress - Head Head exam: atraumatic, normocephalic, normal inspection - Eye Eye exam: Present: normal appearance, PERRL, EOMI - ENT ENT exam: normal exam, normal oropharynx, mucous membranes moist - Neck Neck exam: Present: normal inspection, full ROM, trachea midline - Chest Chest inspection: Present: normal inspection, symmetric chest wall rise - Respiratory Respiratory exam: Present: other (Coarse breath sounds with rhonchi in bilateral lower lobes). Absent: respiratory distress - Cardiovascular Cardiovascular exam: Present: regular rate, normal rhythm, normal heart sounds - Abdominal Exam Abdominal exam: Present: soft, Non-Tender. Absent: tenderness, distention, guarding, rebound, rigidity - Extremities Exam Extremities exam: Present: normal inspection (LLE with AKA). Absent: tenderness , pedal edema - Neurological Exam Neurological exam: Present: alert, oriented X3 - Skin Skin exam: Present: warm, dry, intact, normal color Course Vital Signs Temperature 97.7 F 12/08/17 02:23 Pulse Rate 62 12/08/17 02:23 Respiratory Rate 11 12/08/17 02:23 Blood Pressure 120/64 12/08/17 02:23 O2 Sat by Pulse Oximetry 99 12/08/17 02:23 Temperature 97.7 F 12/08/17 02:23 Pulse Rate 70 12/08/17 04:22 Respiratory Rate 16 12/08/17 04:22 Blood Pressure 135/62 12/08/17 04:22 O2 Sat by Pulse Oximetry 98 12/08/17 04:22 Oxygen Delivery Oxygen Delivery Room Air Shortness of Breath/Dyspnea - MDM Narrative Medical decision making narrative: Patient's workup in the emergency department demonstrates a mildly elevated troponin compared to his baseline at 0.05 as well as an acute kidney injury compared to his baseline. The patient has a mildly elevated BNP as well. Chest x-ray is clear. After discussion with the patient we will admit the patient to the hospital at this time. He was provided aspirin. The patient denies any chest pain and states the shortness of breath has not improved at this time. He is resting comfortably in the room at 100% on room air. Accepted by Dr. Schuler. Recommended no heparinization at this time. - Medical Records Medical records reviewed: Yes I reviewed the patient's medical records. - Lab Data Lab results reviewed: Yes I reviewed the patient's lab results. Result diagrams: 12/08/17 02:30 12/08/17 02:30 Lab Results 12/08/17 12/08/17 12/08/17 Range/Units 02:30 02:30 02:30 WBC 5.3 (4.3-11.1) K/mcL RBC 3.37 L (4.19-5.50) M/mcL Hgb 10.8 L (12.9-16.9) g/dL Hct 31.6 L (37.5-50.1) % MCV 93.8 (83.0-100.0) fL MCH 32.0 (28.0-33.3) pg MCHC 34.2 (31.6-35.5) g/dL RDW 13.5 (11.5-14.5) % Plt Count 135 L (140-400) K/mcL MPV 10.1 (9.4-12.4) fL Immature Gran % 0.9 (0-4) % Seg Neutrophils % 63.6 % Lymphocytes % 21.1 % Monocytes % 10.4 % Eosinophils % 3.8 % Basophils % 0.2 % Neutrophils # 3.4 (1.6-8.9) K/mcL Lymphocytes # 1.1 (0.6-4.6) K/mcL Monocytes # 0.6 (0.0-1.3) K/mcL Eosinophils # 0.2 (0.0-0.6) K/mcL Basophils # 0.0 (0.0-0.2) K/mcL Sodium 137 (136-145) mEq/L Potassium 3.7 (3.5-5.1) mEq/L Chloride 103 (98-107) mEq/L Carbon Dioxide 25 (23-29) mEq/L BUN 36 H (8-23) mg/dL Creatinine 1.87 H (0.70-1.30) mg/dL Est GFR ( Amer) 42 L (> 60) Est GFR (Non-Af Amer) 35 L (> 60) BUN/Creatinine Ratio 19 (6-26) Glucose 58 L (70-105) mg/dL Calculated Osmolality 290 (280-300) Lactic Acid 0.8 (0.5-2.2) mmol/L Calcium 8.5 L (8.6-10.3) mg/dL Troponin I 0.05 H* (< 0.04) ng/mL B-Natriuretic Peptide (Less than 100) pg/mL 12/08/17 Range/Units 02:30 WBC (4.3-11.1) K/mcL RBC (4.19-5.50) M/mcL Hgb (12.9-16.9) g/dL Hct (37.5-50.1) % MCV (83.0-100.0) fL MCH (28.0-33.3) pg MCHC (31.6-35.5) g/dL RDW (11.5-14.5) % Plt Count (140-400) K/mcL MPV (9.4-12.4) fL Immature Gran % (0-4) % Seg Neutrophils % % Lymphocytes % % Monocytes % % Eosinophils % % Basophils % % Neutrophils # (1.6-8.9) K/mcL Lymphocytes # (0.6-4.6) K/mcL Monocytes # (0.0-1.3) K/mcL Eosinophils # (0.0-0.6) K/mcL Basophils # (0.0-0.2) K/mcL Sodium (136-145) mEq/L Potassium (3.5-5.1) mEq/L Chloride (98-107) mEq/L Carbon Dioxide (23-29) mEq/L BUN (8-23) mg/dL Creatinine (0.70-1.30) mg/dL Est GFR ( Amer) (> 60) Est GFR (Non-Af Amer) (> 60) BUN/Creatinine Ratio (6-26) Glucose (70-105) mg/dL Calculated Osmolality (280-300) Lactic Acid (0.5-2.2) mmol/L Calcium (8.6-10.3) mg/dL Troponin I (< 0.04) ng/mL B-Natriuretic Peptide 275 H (Less than 100) pg/mL - Radiology Data Radiology results reviewed: Yes I reviewed the patient's radiology results. Chest X-Ray 12/08/17 02:28 IMPRESSION: No acute disease. D/ / Jonathan Byrne MD / Jonathan Byrne MD Interpreting Provider: Jonathan Byrne MD - EKG Data EKG attestation: Yes I reviewed and interpreted this EKG. EKG results narrative: Heart rate 62 beats for minute. Normal sinus rhythm. No ST elevation or ST depression noted. EKG overall similar in appearance to EKG from 11/29/2017. No acute changes noted. Attestation Statement - Attestation Attestation: I examined this patient and my medical decision-making was reviewed with the Resident Physician. I agree with the documented findings, disposition and treatment plan as described except to the extent set forth below. Findings consistent with weakness, possible anginal equivalence, elevated cardiac biomarkers, will start asa, admit for possible NSTEMI.
[2017-12-08 02:46] LABS: Basophils % 0.2 %; Eosinophils # 0.2 K/mcL (0.0-0.6); Eosinophils % 3.8 %; Hematocrit 31.6 % (37.5-50.1); Hemoglobin 10.8 g/dL (12.9-16.9); Immature Granulocytes % 0.9 % (0-4); Lymphocytes # 1.1 K/mcL (0.6-4.6); Lymphocytes % 21.1 %; Mean Corpuscular HGB Conc 34.2 g/dL (31.6-35.5); Mean Corpuscular Volume 93.8 fL (83.0-100.0); Mean Platelet Volume 10.1 fL (9.4-12.4); Monocytes # 0.6 K/mcL (0.0-1.3); Monocytes % 10.4 %; Neutrophils # 3.4 K/mcL (1.6-8.9); Platelet Count 135 K/mcL (140-400); Red Blood Count 3.37 M/mcL (4.19-5.50); Red Cell Distribution Width 13.5 % (11.5-14.5); Segmented Neutrophils % 63.6 %
[2017-12-08 03:15] LABS: Calcium 8.5 mg/dL (8.6-10.3); Potassium 3.7 mEq/L (3.5-5.1)
[2017-12-08 03:30] LABS: Troponin I 0.05 ng/mL (< 0.04)
[2017-12-08] MEDS ORDERED: Aspirin 325 MG TABLET PO ONE (03:32)
--- NOTE | 2017-12-08 05:59 | Internal Med History&Physical ---
Date of Encounter: 12/08/17 Time of Encounter: 05:55 Internal Medicine - H&P: HPI Chief complaint: SOB Admitted From: Home Plans for Post Hospital Care: Home History of present illness: Mr. Del Rio is a 82 year old male past medical history of systolic CHF, CAD, diabetes, hypertension, PAD with AKA, and renal disease who presented to the ED for shortness of breath. Patient was recently discharged on 12/05/17 for CAP and CHF exacerbation. Patient completed his full course of levofloxacin for CAP yesterday. He states that last night around midnight he woke up and was suddenly short of breath he waited around for an hour and then called the squad has it did not ease. Patient is not on oxygen at home. Patient states that he is not been weighing himself but states that his lower extremity edema is less than normal. He denies associated chest pain. He stated that while he was in the ED, the shortness of breath resolved. Upon arrival to the ED, patient's vitals were within normal limits. Patient's oxygen saturations remained in the 90s on room air. Chest x-ray showed no acute process. CBC showed a hemoglobin of 10.8 (baseline), thrombocytopenia 135 (chronic), creatinine 1.87 ( 1.5), Troponin 0.05, BNP 275 (previous 750). Patient was given aspirin in the ED. Patient was admitted to the hospital for elevated troponin and acute on chronic kidney failure. Cardiac testing: Nuclear stress tests 09/28/17: No perfusion evidence for ischemia. Large sized fixed perfusion defect involving the mid to distal anterior wall, distal anterolateral wall and apex consistent with prior infarct. Pharmacologic stress ECG is negative for ischemia at level of heart rate achieved. No appreciable change from baseline ECG. The left ventricle is dilated. Gated EF = 26%. [facility] 10/28/15: There is severe three vessel coronary artery disease. There is a 30 % stenosis in the distal LMCA. The lesion has a CARRIE flow of 3.There is a 99% stenosis in the Mid LAD. There is a 80% stenosis in the Distal LAD. The lesion has a CARRIE flow of 3. There is a 60% stenosis in the Proximal Circumflex. The lesion has a CARRIE flow of 3.There is a 90% stenosis in the Distal Marginal. The lesion has a CARRIE flow of 3. Right Coronary Artery There is a 50% stenosis in the Proximal RCA. The lesion has a CARRIE flow of 3. There is a 60% stenosis in the Mid RCA. The lesion has a CARRIE flow of 3. The left ventricle EF 35% S/P CABG 3/3 patent bypass grafts (2 grafts are sequential) Echo 05/29/16: LV function mildly reduced. Mild LV diastolic dysfunction. Past Med Surg Social Fam HX - Past Medical History Medical history: arthritis, CHF, coronary artery disease, diabetes, hyperlipidemia, hypertension, peripheral artery disease, renal disease Additional medical history: prostate cancer Psychiatric history: no psych history - Past Surgical History Surgical History: appendectomy, cholecystectomy, coronary bypass (CABG), other, AICD Additional surgical history: OCTOBER 2015 LEFT AKA - Social History Smoking Status: Former smoker Smokeless Tobacco Status: No Alcohol use: none Drug use: none - Family History Mother Living Status: Father Living Status: Hx Family Cardiac Disorders: No Hx Family Respiratory Disorders: No Hx Family Cancer: Yes (FATHER) Hx Family GI Disorders: No Hx Family Endocrine Disorder: Yes (SISTER) Hx Family Neuromuscular Disorders: No Hx Family Neurologic Disorders: Yes (brain tumor) Hx Family HEENT Disorders: No Hx Family Autoimmune Disorders: No Internal Medicine - H&P: Meds Finasteride [Proscar] 5 mg PO HS 08/08/15 [History] Furosemide [Lasix] 40 mg PO QAM 08/08/15 [History] Losartan Potassium [Cozaar] 50 mg PO DAILY 08/08/15 [History] Simvastatin [Zocor] 40 mg PO HS 08/08/15 [History] Tamsulosin [Flomax] 0.4 mg PO DAILY 08/08/15 [History] glipiZIDE [Glucotrol] 10 mg PO BID 08/08/15 [History] Carvedilol 12.5 mg PO BID 06/01/16 [History] Clopidogrel [Plavix] 75 mg PO DAILY 12/02/17 [History] HYDROcodone/Acet 5/325 mg [[place] 5-325 mg] 1 tab PO Q6H PRN 12/02/17 [History] Insulin Glargine,Hum.rec.anlog [Basaglar Kwikpen U-100] 10 unit SQ 1900 [History] levoFLOXacin [Levaquin] 750 mg PO DAILY #2 tablet 12/05/17 [Rx] 3 Allergy/AdvReac Type Severity Reaction Status Date / Time dabigatran etexilate AdvReac See Verified 12/02/17 22:01 [From Pradaxa] Comments All Systems PM: A 10-system review of systems was performed and is negative for pertinent findings except as documented above in the HPI. - Constitutional Vitals: Temp Pulse Resp BP Pulse Ox 97.8 F 77 14 146/74 99 12/08/17 04:42 12/08/17 04:42 12/08/17 04:42 12/08/17 04:42 12/08/17 04:42 Internal Med - H&P Results - Labs CBC & Chem 7: 12/08/17 02:30 12/08/17 02:30 - Assessment and plan (1) SOB (shortness of breath) Current Visit: Yes Status: Acute Assessment and plan: Sudden SOB while patient was sleeping, most likely 2/2 to paroxysmal nocturnal dyspnea 2/2 to CHF exacerbation. BNP elevated but lower than previous admission. CXR shows no acute process. Patient has completed course of antibiotics for CAP. Patient states that SOB resolved in the ED about 4 hrs after it started, with no intervention. Vitals wnl. Satting in the 90s on RA since admission. PE has decrease breath sounds bilaterally but no crackles, LE without edema. Patient does not look fluid overloaded. Plan: - continuous pulse ox - o2 support of needed - continue home Lasix 40 PO daily (2) Elevated troponin Current Visit: Yes Status: Acute Assessment and plan: Patient denies chest pain. Troponin initially = 0.05 Plan: - trending troponins - consider obtaining an Echo as previous EF low and last echo 2 years ago - continue telemetry (3) SORAIDA (acute kidney injury) Current Visit: Yes Status: Acute Assessment and plan: Acute injury with CKD stage III. Creatinine = 1.87 (1.5 previously). Will continue Lasix and see if elevation of creatinine is due from fluid overload. (4) CHF (congestive heart failure) Current Visit: Yes Status: Acute Assessment and plan: Systolic acute on chronic CHF, EF 35%. See SOB plan above. BNP 250, less than previous 750 at last admission. Consider obtaining repeat Echo. Qualifiers: Heart failure type: systolic Heart failure chronicity: acute on chronic Qualified Code(s): I50.23 - Acute on chronic systolic (congestive) heart failure (5) Hypertension Current Visit: No Status: Chronic Assessment and plan: Currently wnl. Continuing home meds. 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 Heparin SQ - Time Spent With Patient Total time spent is greater than 50% in coordination of care (as documented) at patient's floor/unit and/or counseling patient:
[2017-12-08] MEDS ORDERED: Acetaminophen 325 MG TABLET PO PRN (06:49)
[2017-12-08] MEDS ORDERED: Naloxone 0.4 MG/ML INJ IVP PRN (06:49)
[2017-12-08] MEDS ORDERED: Dextrose Gel 15 GM/37.5 ML TUBE PO PRN ×2 (06:50)
[2017-12-08] MEDS ORDERED: D5% in Water 1,000 ML IVC PRN (06:50)
[2017-12-08] MEDS ORDERED: *HR* Dextrose 50 % in Water (Syg) 50 ML SYRINGE IVP PRN (06:50)
[2017-12-08] MEDS ORDERED: *HR* HYDROcodone/Acet 5/325 mg TABLET PO PRN (07:01)
[2017-12-08] MEDS: Furosemide 40 MG TABLET PO SCH (08:04)
[2017-12-08] MEDS: *HR* Heparin 5,000 UNIT/ML VIAL SQ SCH ×2 (08:04→17:52)
[2017-12-08] MEDS: Insulin LISPRO 300 UNITS/3 ML VIAL SQ SCH ×3 (08:04→17:51)
--- NOTE | 2017-12-08 12:26 | Electrocardiograph Report ---
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
--- NOTE | 2017-12-08 14:11 | Internal Med Progress Note ---
Date of Encounter: 12/08/17 Time of Encounter: 14:09 - Assessment and plan (1) CHF (congestive heart failure) Current Visit: Yes Status: Acute Assessment and plan: Suspect Systolic acute on chronic CHF, 10/2015 [facility] with EF 35%. BNP 275, dose not appear overloaded, negative for pedal or pre-tibial edema right lower extremity, negative for rales , CXR results no acute processes. Repeat Echo with definity per last echo recommendation. Qualifiers: Heart failure type: systolic Heart failure chronicity: acute on chronic Qualified Code(s): I50.23 - Acute on chronic systolic (congestive) heart failure (2) SOB (shortness of breath) Current Visit: Yes Status: Acute Assessment and plan: See Plan as noted above (3) SORAIDA (acute kidney injury) Current Visit: Yes Status: Acute Assessment and plan: Acute injury with CKD stage III. Creatinine = 1.87 (1.5 previously). Will continue Lasix and see if elevation of creatinine is due from fluid overload. (4) Elevated troponin Current Visit: Yes Status: Acute Assessment and plan: Patient denies chest pain. Initial elevation of Troponin at 0.05, trending downward d/t 0.04 probable d/t worsening renal function. Plan: - trending topspins downward - Echo pending - continue telemetry (5) Hypertension Current Visit: No Status: Chronic Assessment and plan: Currently stable with o2 sat on RA 98% b/p improved to q135/62, 70 resp 16. 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 Heparin SQ with low Platelet count of 135, will add SCD - Time Spent With Patient Total time spent is greater than 50% in coordination of care (as documented) at patient's floor/unit and/or counseling patient: - Constitutional Vitals: Temp Pulse Resp BP Pulse Ox 97.7 F 66 17 144/73 97 12/08/17 11:35 12/08/17 11:35 12/08/17 11:35 12/08/17 11:35 12/08/17 11:35 Internal Medicine: Result - Labs CBC & Chem 7: 12/08/17 02:30 12/08/17 02:30 Labs: Cardiac Enzymes 12/08/17 Range/Units 07:57 Troponin I 0.04 H* (< 0.04) ng/mL Consult Discharge Plan - Plan Referrals: Celina Tovar MD [Primary Care Provider] -
--- NOTE | 2017-12-08 20:29 | Event Note ---
Date of Encounter: 12/08/17 Time of Encounter: 04:00 I was present with resident during the history and exam. I discussed the case with the resident and agree with the findings and plan as documented in the residents note.
[2017-12-08] MEDS ORDERED: Perflutren Lipid Microsphere 1.3 ML in 0.9 % Sodium Chloride 8.7 ML IVP ONE (20:33)
[2017-12-08] MEDS ORDERED: Insulin LISPRO 300 UNITS/3 ML VIAL SQ SCH (21:00)
[2017-12-08] MEDS ORDERED: Finasteride 5 MG TABLET PO SCH (21:00)
[2017-12-09 05:15] LABS: Hematocrit 29.2 % (37.5-50.1); Mean Corpuscular HGB Conc 34.2 g/dL (31.6-35.5); Mean Corpuscular Hemoglobin 31.6 pg (28.0-33.3); Mean Corpuscular Volume 92.4 fL (83.0-100.0); Mean Platelet Volume 9.9 fL (9.4-12.4); Platelet Count 104 K/mcL (140-400); Red Blood Count 3.16 M/mcL (4.19-5.50); Red Cell Distribution Width 13.5 % (11.5-14.5)
[2017-12-09 05:42] LABS: Calcium 8.4 mg/dL (8.6-10.3); Magnesium 1.8 mg/dL (1.6-2.6); Phosphorous 2.7 mg/dL (2.7-4.5); Potassium 3.8 mEq/L (3.5-5.1)
[2017-12-09] MEDS: *HR* Heparin 5,000 UNIT/ML VIAL SQ SCH (06:17)
[2017-12-09] MEDS: Insulin LISPRO 300 UNITS/3 ML VIAL SQ SCH (09:08)
[2017-12-09] MEDS: Furosemide 40 MG TABLET PO SCH (10:27)
--- NOTE | 2017-12-09 11:40 | Discharge Summary ---
- NOTES TO OUTPATIENT PROVIDER Notes to Outpatient Provider: Recommend follow-up within one week for repeat BMP. Also recommend outpatient referral to nephrology Date of Encounter: 12/09/17 Time of Encounter: 11:38 - Discharge Diagnosis (1) CHF (congestive heart failure) Priority: Primary Status: Acute Assessment and Plan: presented with worsening shortness of breath. 12/07/2017 TTE with EF 35%, evidence of systolic and diastolic dysfunction, mild to moderate aortic regurgitation. Has AICD. Suspect combined acute on chronic systolic and diastolic dysfunction. Did not appear overtly overloaded. Symptoms improved with continuing home Lasix. EF appears to be slightly worsened when compared to TTE on 03/2014, additionally troponin slightly elevated which could be related to worsening renal function however patient would have likely benefited from cardiology consultation but he declined. Stated he wanted to follow-up with his primary sales and marketing director outpatient. Advised to return to ER if chest pain /SOB recurs. He verbalized understanding. Continue home ARB, BB, Plavix. Qualifiers: Heart failure type: systolic Heart failure chronicity: acute on chronic Qualified Code(s): I50.23 - Acute on chronic systolic (congestive) heart failure (2) SORAIDA (acute kidney injury) Priority: Primary Status: Acute Assessment and Plan: Acute injury with CKD stage III. Creatinine = 1.87 (1.5 previously). Renal function appeared to return to baseline at time of discharge. Recommend repeat BMP within 1 week (3) Elevated troponin Priority: Primary Status: Acute Assessment and Plan: Troponin peaked at 0.05 and trended down. Denied chest pain. Possibly secondary to CHF exacerbation and/or worsening renal function. Declined inpatient cardiology consultation. Recommend outpatient follow-up with primary sales and marketing director. (4) Hypertension Priority: Secondary Status: Chronic Assessment and Plan: per hx. BP variable but acceptable. Continue home BP medication. Recommend outpatient follow-up with PCP within one week Qualifiers: Hypertension type: essential hypertension Qualified Code(s): I10 - Essential (primary) hypertension (5) Type 2 diabetes mellitus Priority: Secondary Status: Chronic Assessment and Plan: per hx. Blood sugars controlled. 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 Continue home Plavix, statin. (7) Atherosclerosis of [place] arteries of left leg with ulceration of other part of foot Priority: Secondary Status: Chronic Assessment and Plan: per hx. S/p Left AKA in 2014. Cont home Plavix, statin. (8) CAD (coronary artery disease) Priority: Secondary Status: Chronic Assessment and Plan: per hx. Denied chest pain. Troponin elevated as noted above. Declined cardiology consultation. Cont home BB, ASA Qualifiers: Coronary Disease-Associated Artery/Lesion type: [place] artery [place] vs. transplanted heart: [place] heart Associated angina: without angina Qualified Code(s): I25.10 - Atherosclerotic heart disease of [place] coronary artery without angina pectoris Hospital course: Please see assessment and plan for Hospital course Discharge discussed with: patient (Seen and examined at bedside. Patient says he feels better and is requesting discharge home. Advised him of lower EF and recommended inpatient cardiology consultation however patient declined. Says he only has a ride home today and cannot stay another night in the hospital. Advised him to return to ER if chest pain/shortness of breath occurs. Patient verbalizes understanding. No chest pain or shortness of breath at time of discharge.) - Time Spent with Patient Total time spent providing and/or coordinating discharge services: - Discharge Medications Home Medications: Finasteride [Proscar] 5 mg PO QAM 08/08/15 [History] Furosemide [Lasix] 40 mg PO QAM 08/08/15 [History] Losartan Potassium [Cozaar] 50 mg PO DAILY 08/08/15 [History] Simvastatin [Zocor] 40 mg PO HS 08/08/15 [History] Tamsulosin [Flomax] 0.4 mg PO DAILY 08/08/15 [History] glipiZIDE [Glucotrol] 10 mg PO BID 08/08/15 [History] Carvedilol 12.5 mg PO BID 06/01/16 [History] Clopidogrel [Plavix] 75 mg PO DAILY 12/02/17 [History] Insulin Glargine,Hum.rec.anlog [Manasa Guerrero U-100] 10 unit SQ 1700 [History] Allergies/Adverse Reactions: 3 Allergy/AdvReac Type Severity Reaction Status Date / Time dabigatran etexilate AdvReac See Verified 12/02/17 22:01 [From Pradaxa] Comments Date of admission: 12/08/17 03:49 Primary care physician: Celina Tovar Consults: 12/08/17 08:53 Consult to Nurse Navigator [CONS] Routine Comment: CHF Discharging clinician: Estrella Slater Anticipated date of discharge: 12/09/17 - Constitutional Vitals: Temp Pulse Resp BP Pulse Ox 98.0 F 63 15 158/69 96 12/09/17 07:33 12/09/17 07:33 12/09/17 07:33 12/09/17 07:33 12/09/17 07:33 General appearance: Present: A&O X 3, pleasant, no acute distress - Head Head exam: Present: atraumatic, normocephalic - Eye Eye exam: Present: PERRL, conjuntiva pink, sclera anicteric Pupils: Present: PERRL - Neck Neck exam general surgery: Present: supple, trachea midline. Absent: lymphadenopathy - Respiratory Respiratory exam: Present: CTAB. Absent: accessory muscle use, rales, rhonchi, wheezes - Cardiovascular Cardiovascular exam: Present: RRR, +S1, +S2. Absent: diastolic murmur, gallop, rubs, systolic murmur - GI/Abdominal GI/Abdominal exam: Present: normal bowel sounds, soft, no peritoneal signs. Absent: distended, tenderness - Extremities Exam Extremities exam: Present: warm, radial pulses palpable and symmetrical. Absent : calf tenderness, cyanotic, pedal edema - Neurological Exam Neurological exam: Present: CN II-XII intact, oriented X3, no focal deficits. Absent: strengths equal and symetr throughout, pronater drift, facial droop, speech deficit Additional comments: Left AKA - Skin Skin exam: Present: dry, intact - Patient Status Disposition: Home, Self-Care Condition: Good Functional capacity at discharge: uses cane/walker Overall status at discharge: patient is back to baseline - Discharge Instructions Instructions: Heart Failure (DC), Low Sodium Diet (DC), Acute Kidney Injury (DC ) Follow Up With: Celina Tovar MD [Primary Care Provider] - 12/13/17 11:15 am Elton Sexton MD [Partnered Physician] - (Please call for follow-up appt if you have not heard from office within 2-3 weeks ) - Diet and Activity Activity: increase activity as tolerated Diet: diabetic diet, low fat, low cholesterol, low salt diet
[2017-12-09 11:41] VITALS: BP 149/82
== END 2017-12-09 13:13 | disposition home or self-care (01) ==
LOC: EMEROO 02:23 → 3BNU 02:23
PROVIDERS: ADMIT Family Medicine; ATTEND Family Medicine

== ENCOUNTER 2020-10-09 13:27 | Observation (INO) ==
[2020-10-09 13:55] LABS: Basophils % 0.2 %
[2020-10-09 13:56] LABS: Eosinophils % 0.5 %; Hematocrit 24.8 % (37.5-50.1); Immature Granulocytes % 1.3 % (0-4); Immature Platelets 7.3 % (1.1-6.1); Lymphocytes # 0.5 K/mcL (0.6-4.6); Lymphocytes % 8.1 %; Mean Corpuscular HGB Conc 32.3 g/dL (31.6-35.5); Mean Corpuscular Hemoglobin 34.6 pg (28.0-33.3); Mean Corpuscular Volume 107.4 fL (83.0-100.0); Mean Platelet Volume 10.5 fL (9.4-12.4); Monocytes # 0.5 K/mcL (0.0-1.3); Monocytes % 8.6 %; Red Blood Count 2.31 M/mcL (4.19-5.50); Red Cell Distribution Width 16.3 % (11.5-14.5); Segmented Neutrophils % 81.3 %
[2020-10-09 14:00] LABS: Neutrophils # 4.9 K/mcL (1.6-8.9); Platelet Count 77 K/mcL (140-400)
[2020-10-09 14:09] LABS: INR 1.2; Prothrombin Time 13.5 Seconds (9.4-12.1)
[2020-10-09 14:17] LABS: Calcium 9.1 mg/dL (8.6-10.3); Potassium 5.6 mEq/L (3.5-5.1); Troponin I 0.03 ng/mL (< 0.04)
[2020-10-09] MEDS ORDERED: Insulin Human Regular 5 UNIT in 0.9 % Sodium Chloride 10 ML IV ONE (15:07)
[2020-10-09] MEDS ORDERED: Furosemide 40 MG in 0.9 % Sodium Chloride 50 ML IV ONE (15:08)
[2020-10-09] MEDS ORDERED: Ondansetron 4 MG/2 ML VIAL IVP PRN (16:02)
[2020-10-09] MEDS ORDERED: Naloxone 0.4 MG/ML INJ IVP PRN (16:02)
[2020-10-09] MEDS ORDERED: Perflutren Lipid Microsphere 1.3 ML in 0.9 % Sodium Chloride 8.7 ML IVP PRN (16:16)
[2020-10-09] MEDS ORDERED: *HR* Dextrose 50 % in Water (Vial) 50 ML VIAL IVP PRN (16:38)
[2020-10-09] MEDS ORDERED: D5% in Water 1,000 ML IVC PRN (16:38)
[2020-10-09] MEDS ORDERED: Dextrose Gel 15 GM/37.5 ML TUBE PO PRN ×2 (16:38)
[2020-10-09 16:56] LABS: Bilirubin,Urine Negative (Negative); Blood,Urine Negative (Negative); Clarity,Urine Clear (Clear); Color,Urine Light-Yellow (Yellow); Glucose,Urine (UA) >=1000 mg/dL (Normal); Ketones,Urine Negative (Negative); Leukocyte Esterase,Urine Negative (Negative); Nitrite,Urine Negative (Negative); Protein,Urine 30 mg/dL (Neg-Trace); Urobilinogen,Urine Normal (Normal); WBC,Urine 0-3 per hpf (0-3)
[2020-10-09 18:02] LABS: Estimated Average Glucose 166 mg/dl; Hemoglobin A1C 7.4 %
[2020-10-09 18:19] LABS: % Iron Saturation 9 % (20-55); Iron 21 mcg/dL (65-175); Transferrin 164 mg/dL (203-362)
[2020-10-09 18:20] LABS: Potassium 4.7 mEq/L (3.5-5.1)
[2020-10-09 18:32] LABS: Folate 10.9 ng/mL (3.0-16.0)
[2020-10-09 19:12] LABS: ABG Base Excess 2 mEq/L (-2 to 3); ABG HCO3 27 mEq/L (21-27); ABG Oxygen Saturation 99 % (95-98); ABG PCO2 42 mmHg (35-45); ABG PH 7.41 pH Units (7.32-7.45); ABG PO2 120 mmHg (85-104); ABG TCO2 28 mEq/L (20-26)
[2020-10-09] MEDS: Furosemide 40 MG/4 ML VIAL IVP SCH (19:44)
[2020-10-09] MEDS: carvediloL 6.25 MG TABLET PO SCH (20:17)
[2020-10-09] MEDS: Azithromycin 500 MG in D5% in Water 250 ML IVPB SCH (20:18)
[2020-10-09] MEDS: cefTRIAXone 1,000 MG in Water for inj. (sterile) 10 ML IVP SCH (20:18)
[2020-10-09] MEDS: Insulin LISPRO 300 UNITS/3 ML VIAL SUBQ SCH (20:29)
[2020-10-09] MEDS ORDERED: *HR* Heparin 5,000 UNIT/ML VIAL IVP PRN ×2 (21:02)
[2020-10-09] MEDS ORDERED: *HR* Heparin 5,000 UNIT/ML VIAL IVP ONE (21:02)
[2020-10-09] MEDS ORDERED: Heparin 25,000UNIT/250ML 1/2NS 25,000 UNIT/250 ML IV.SOLN IVC SCH (21:15)
[2020-10-09 21:33] LABS: Hematocrit 20.3 % (37.5-50.1); Hemoglobin 6.5 g/dL (12.9-16.9); Immature Platelets 7.2 % (1.1-6.1); Mean Corpuscular Hemoglobin 34.2 pg (28.0-33.3); Mean Corpuscular Volume 106.8 fL (83.0-100.0); Mean Platelet Volume 11.6 fL (9.4-12.4); Red Blood Count 1.9 M/mcL (4.19-5.50); Red Cell Distribution Width 15.9 % (11.5-14.5); White Blood Count 4.6 K/mcL (4.3-11.1)
[2020-10-09 21:43] LABS: INR 1.2; Prothrombin Time 14.1 Seconds (9.4-12.1)
[2020-10-09 21:45] LABS: Heparin anti-factor XA UFH < 0.04 IU/mL (0.30-0.70)
[2020-10-09] MEDS: Ipratropium/Albuterol Neb 3 ML IH SCH (21:59)
[2020-10-09 22:52] LABS: Hemoglobin 7.1 g/dL (12.9-16.9)
[2020-10-09 23:09] LABS: Adenovirus Not Detected (Not Detect); Bordetella Pertussis Not Detected (Not Detect); Chlamydophila pneumoniae Not Detected (Not Detect); Coronavirus 229E Not Detected (Not Detect); Coronavirus HKU1 Not Detected (Not Detect); Coronavirus NL63 Not Detected (Not Detect); Coronavirus OC43 Not Detected (Not Detect); Human Metapneumovirus Not Detected (Not Detect); Human Rhinovirus/Enterovirus Not Detected (Not Detect); Influenza A Subtype 2009 H1 Not Detected (Not Detect); Influenza B Not Detected (Not Detect); Mycoplasma pneumoniae Not Detected (Not Detect); Parainfluenza Virus 1 Not Detected (Not Detect); Parainfluenza Virus 2 Not Detected (Not Detect); Parainfluenza Virus 3 Not Detected (Not Detect); Parainfluenza Virus 4 Not Detected (Not Detect); Respiratory Syncytial Virus Not Detected (Not Detect); SARS-CoV-2 Not Detected (Not Detect)
[2020-10-09] MEDS ORDERED: 0.9 % Sodium Chloride 250 ML ONE (23:47)
[2020-10-10] MEDS: Insulin LISPRO 300 UNITS/3 ML VIAL SUBQ SCH ×4 (00:06→17:35)
[2020-10-10] MEDS: Ipratropium/Albuterol Neb 3 ML IH SCH ×4 (03:57→23:13)
[2020-10-10 06:35] LABS: Hematocrit 24.8 % (37.5-50.1); Mean Corpuscular HGB Conc 32.3 g/dL (31.6-35.5); Mean Corpuscular Hemoglobin 33.2 pg (28.0-33.3); Mean Corpuscular Volume 102.9 fL (83.0-100.0); Red Blood Count 2.41 M/mcL (4.19-5.50); Red Cell Distribution Width 17.7 % (11.5-14.5)
[2020-10-10 06:37] LABS: Eosinophils % 0.4 %; Lymphocytes # 0.6 K/mcL (0.6-4.6); Lymphocytes % 11.9 %; Mean Platelet Volume 11.7 fL (9.4-12.4); Monocytes # 0.5 K/mcL (0.0-1.3); Monocytes % 9.3 %; Segmented Neutrophils % 77.4 %; White Blood Count 5.1 K/mcL (4.3-11.1)
[2020-10-10 06:52] LABS: Platelet Count 63 K/mcL (140-400)
[2020-10-10 07:15] LABS: Alanine Aminotransferase 6 Units/L (7-52); Albumin 3.4 g/dL (3.5-5.7); Albumin/Globulin Ratio 1.3 (1.1-2.2); Alkaline Phosphatase 72 Units/L (34-104); Aspartate Amino Transferase 9 Units/L (13-39); BUN/Creatinine Ratio 29 (6-26); Blood Urea Nitrogen 38 mg/dL (8-23); Calcium 8.8 mg/dL (8.6-10.3); Carbon Dioxide 26 mEq/L (23-29); Chloride 105 mEq/L (98-107); Globulin 2.7 g/dL (2.4-3.5); Glucose 154 mg/dL (70-105); Osmolality,Calculated 298 (280-300); Potassium 4.6 mEq/L (3.5-5.1); Sodium 138 mEq/L (136-145); Total Protein 6.1 g/dL (6.4-8.9); Troponin I 0.21 ng/mL (< 0.04); eGFR For African Americans > 60 (> 60); eGFR For Non-African Americans 53 (> 60)
[2020-10-10] MEDS: Pantoprazole 40 MG VIAL IVP SCH (08:06)
[2020-10-10] MEDS: Furosemide 40 MG/4 ML VIAL IVP SCH ×2 (08:06→17:34)
[2020-10-10 09:37] LABS: Hematocrit 25.1 % (37.5-50.1); Hemoglobin 8.2 g/dL (12.9-16.9)
[2020-10-10] MEDS ORDERED: E-Z-PAQUE (BARIUM SULF) SUSP 1 BOTTLE PO ONE (13:55)
[2020-10-10] MEDS ORDERED: E-Z-HD (BARIUM SULF) SUSPENSION PO ONE (13:55)
[2020-10-10] MEDS: Finasteride 5 MG TABLET PO SCH (15:11)
[2020-10-10] MEDS: carvediloL 6.25 MG TABLET PO SCH ×2 (15:11→17:36)
[2020-10-10] MEDS: Cholecalciferol (D-3) 1,000 UNIT (25MCG) TABLET PO SCH (15:11)
[2020-10-10] MEDS: allopurinoL 100 MG TABLET PO SCH (15:11)
[2020-10-10] MEDS: cefTRIAXone 1,000 MG in Water for inj. (sterile) 10 ML IVP SCH (17:36)
[2020-10-10] MEDS: Azithromycin 500 MG in D5% in Water 250 ML IVPB SCH (17:36)
[2020-10-10] MEDS: Nystatin POWDER 30 GM BOTTLE TP SCH (20:49)
[2020-10-11] MEDS: Insulin LISPRO 300 UNITS/3 ML VIAL SUBQ SCH ×4 (00:22→17:19)
[2020-10-11] MEDS: Ipratropium/Albuterol Neb 3 ML IH SCH ×4 (03:53→22:10)
[2020-10-11 03:56] LABS: Hemoglobin 7.5 g/dL (12.9-16.9)
[2020-10-11 03:58] LABS: Eosinophils # 0.1 K/mcL (0.0-0.6); Eosinophils % 2.4 %; Hematocrit 23.9 % (37.5-50.1); Immature Granulocytes % 0.5 % (0-4); Lymphocytes # 0.7 K/mcL (0.6-4.6); Mean Corpuscular HGB Conc 31.4 g/dL (31.6-35.5); Mean Corpuscular Hemoglobin 32.8 pg (28.0-33.3); Mean Corpuscular Volume 104.4 fL (83.0-100.0); Mean Platelet Volume 11.6 fL (9.4-12.4); Monocytes # 0.4 K/mcL (0.0-1.3); Monocytes % 10.2 %; Neutrophils # 2.6 K/mcL (1.6-8.9); Red Blood Count 2.29 M/mcL (4.19-5.50); Segmented Neutrophils % 68.9 %; White Blood Count 3.7 K/mcL (4.3-11.1)
[2020-10-11 04:11] LABS: Platelet Count 56 K/mcL (140-400)
[2020-10-11 04:13] LABS: BUN/Creatinine Ratio 30 (6-26); Blood Urea Nitrogen 40 mg/dL (8-23); Calcium 8.5 mg/dL (8.6-10.3); Carbon Dioxide 28 mEq/L (23-29); Chloride 102 mEq/L (98-107); Glucose 140 mg/dL (70-105); Osmolality,Calculated 298 (280-300); Potassium 4.2 mEq/L (3.5-5.1); Sodium 138 mEq/L (136-145); eGFR For African Americans > 60 (> 60); eGFR For Non-African Americans 50 (> 60)
[2020-10-11] MEDS: carvediloL 6.25 MG TABLET PO SCH ×2 (08:51→17:17)
[2020-10-11] MEDS: Cholecalciferol (D-3) 1,000 UNIT (25MCG) TABLET PO SCH (08:51)
[2020-10-11] MEDS: Finasteride 5 MG TABLET PO SCH (08:51)
[2020-10-11] MEDS: Furosemide 40 MG TABLET PO SCH ×2 (08:51→17:17)
[2020-10-11] MEDS: Pantoprazole 40 MG VIAL IVP SCH (08:52)
[2020-10-11] MEDS: allopurinoL 100 MG TABLET PO SCH (08:52)
[2020-10-11] MEDS: Nystatin POWDER 30 GM BOTTLE TP SCH ×2 (09:01→20:28)
[2020-10-11] MEDS ORDERED: Insulin DETEMIR 100 UNIT/ML X5UNITS SUBQ SCH (21:00)
[2020-10-12 03:22] LABS: Hemoglobin 8.1 g/dL (12.9-16.9); Mean Corpuscular Volume 104.2 fL (83.0-100.0); Red Cell Distribution Width 16.5 % (11.5-14.5)
[2020-10-12 03:24] LABS: Basophils % 0.3 %; Eosinophils # 0.1 K/mcL (0.0-0.6); Eosinophils % 3.4 %; Hematocrit 24.6 % (37.5-50.1); Immature Granulocytes % 0.8 % (0-4); Immature Platelets 5.5 % (1.1-6.1); Mean Corpuscular HGB Conc 32.9 g/dL (31.6-35.5); Mean Corpuscular Hemoglobin 34.3 pg (28.0-33.3); Mean Platelet Volume 11.9 fL (9.4-12.4); Monocytes # 0.4 K/mcL (0.0-1.3); Neutrophils # 2.4 K/mcL (1.6-8.9); Red Blood Count 2.36 M/mcL (4.19-5.50); Segmented Neutrophils % 66.5 %; White Blood Count 3.6 K/mcL (4.3-11.1)
[2020-10-12 03:35] LABS: Lymphocytes # 0.7 K/mcL (0.6-4.6); Platelet Count 67 K/mcL (140-400)
[2020-10-12 03:40] LABS: Calcium 8.6 mg/dL (8.6-10.3); Potassium 4.4 mEq/L (3.5-5.1)
[2020-10-12] MEDS: Ipratropium/Albuterol Neb 3 ML IH SCH ×3 (04:04→16:11)
[2020-10-12] MEDS: Furosemide 40 MG TABLET PO SCH ×2 (08:31→08:40)
[2020-10-12] MEDS: carvediloL 6.25 MG TABLET PO SCH ×2 (08:39→16:42)
[2020-10-12] MEDS: allopurinoL 100 MG TABLET PO SCH (08:40)
[2020-10-12] MEDS: Finasteride 5 MG TABLET PO SCH (08:40)
[2020-10-12] MEDS: Cefdinir 300 MG CAPSULE PO SCH ×2 (08:40→20:40)
[2020-10-12] MEDS: Cholecalciferol (D-3) 1,000 UNIT (25MCG) TABLET PO SCH (08:40)
[2020-10-12] MEDS: Azithromycin 250 MG TABLET PO SCH (08:40)
[2020-10-12] MEDS: Insulin LISPRO 300 UNITS/3 ML VIAL SUBQ SCH ×3 (08:41→16:42)
[2020-10-12] MEDS: Nystatin POWDER 30 GM BOTTLE TP SCH ×2 (08:41→20:42)
[2020-10-12] MEDS ORDERED: Insulin DETEMIR 100 UNIT/ML X5UNITS SUBQ SCH (09:00)
[2020-10-12] MEDS ORDERED: Ipratropium/Albuterol Neb 3 ML IH PRN (17:19)
[2020-10-12] MEDS: Insulin DETEMIR 100 UNIT/ML X5UNITS SUBQ SCH (20:41)
[2020-10-12] MEDS ORDERED: Insulin LISPRO 300 UNITS/3 ML VIAL SUBQ SCH (21:00)
[2020-10-13 03:51] LABS: Basophils % 0.3 %; Immature Granulocytes % 0.8 % (0-4); Mean Platelet Volume 11.9 fL (9.4-12.4)
[2020-10-13 03:53] LABS: Eosinophils # 0.1 K/mcL (0.0-0.6); Eosinophils % 3.5 %; Hematocrit 24.6 % (37.5-50.1); Hemoglobin 7.9 g/dL (12.9-16.9); Immature Platelets 7.5 % (1.1-6.1); Lymphocytes # 0.8 K/mcL (0.6-4.6); Lymphocytes % 21.5 %; Mean Corpuscular HGB Conc 32.1 g/dL (31.6-35.5); Mean Corpuscular Hemoglobin 32.8 pg (28.0-33.3); Mean Corpuscular Volume 102.1 fL (83.0-100.0); Monocytes # 0.4 K/mcL (0.0-1.3); Monocytes % 10.6 %; Neutrophils # 2.3 K/mcL (1.6-8.9); Red Blood Count 2.41 M/mcL (4.19-5.50); Red Cell Distribution Width 15.7 % (11.5-14.5); Segmented Neutrophils % 63.3 %; White Blood Count 3.7 K/mcL (4.3-11.1)
[2020-10-13 03:54] LABS: Platelet Count 69 K/mcL (140-400)
[2020-10-13 04:05] LABS: Calcium 8.8 mg/dL (8.6-10.3); Potassium 4.2 mEq/L (3.5-5.1)
[2020-10-13] MEDS: Azithromycin 250 MG TABLET PO SCH (08:42)
[2020-10-13] MEDS: Finasteride 5 MG TABLET PO SCH (08:42)
[2020-10-13] MEDS: Cefdinir 300 MG CAPSULE PO SCH (08:42)
[2020-10-13] MEDS: Cholecalciferol (D-3) 1,000 UNIT (25MCG) TABLET PO SCH (08:43)
[2020-10-13] MEDS: Furosemide 40 MG TABLET PO SCH (08:43)
[2020-10-13] MEDS: allopurinoL 100 MG TABLET PO SCH (08:43)
[2020-10-13] MEDS: Insulin LISPRO 300 UNITS/3 ML VIAL SUBQ SCH (08:43)
[2020-10-13] MEDS: carvediloL 6.25 MG TABLET PO SCH (08:43)
[2020-10-13] MEDS: Nystatin POWDER 30 GM BOTTLE TP SCH (08:43)
[2020-10-13] MEDS: Insulin DETEMIR 100 UNIT/ML X5UNITS SUBQ SCH (08:49)
[2020-10-13 11:55] VITALS: BP 153/63
== END 2020-10-13 13:56 | disposition home health service (06) ==
LOC: EMEROOARM 13:27 → 2NNU 13:27 → SUATTDRO 17:09 → 2ANU 18:08
PROVIDERS: ADMIT Internal Medicine; ATTEND Internal Medicine

== ENCOUNTER 2020-11-18 18:24 | Observation (INO) ==
[2020-11-18] MEDS ORDERED: 0.9 % Sodium Chloride 1,000 ML IVC ONE (20:56)
[2020-11-18] MEDS ORDERED: Isovue-370 500 ML BOTTLE IVP ONE (20:56)
[2020-11-18 21:31] LABS: Eosinophils # 0.1 K/mcL (0.0-0.6); Eosinophils % 2.1 %; Hematocrit 22.4 % (37.5-50.1); Hemoglobin 7.2 g/dL (12.9-16.9); Immature Granulocytes % 0.9 % (0-4); Immature Platelets 4.6 % (1.1-6.1); Lymphocytes # 0.8 K/mcL (0.6-4.6); Lymphocytes % 18.9 %; Mean Corpuscular HGB Conc 32.1 g/dL (31.6-35.5); Mean Corpuscular Hemoglobin 34.1 pg (28.0-33.3); Mean Corpuscular Volume 106.2 fL (83.0-100.0); Mean Platelet Volume 10.6 fL (9.4-12.4); Monocytes # 0.4 K/mcL (0.0-1.3); Monocytes % 9.3 %; Platelet Count 61 K/mcL (140-400); Red Blood Count 2.11 M/mcL (4.19-5.50); Red Cell Distribution Width 16.9 % (11.5-14.5); Segmented Neutrophils % 68.8 %; White Blood Count 4.3 K/mcL (4.3-11.1)
[2020-11-18 21:45] LABS: Alanine Aminotransferase 6 Units/L (7-52); Albumin 3.8 g/dL (3.5-5.7); Albumin/Globulin Ratio 1.3 (1.1-2.2); Alkaline Phosphatase 94 Units/L (34-104); Aspartate Amino Transferase 9 Units/L (13-39); BUN/Creatinine Ratio 42 (6-26); Bilirubin,Total 0.5 mg/dL (0.3-1.0); Blood Urea Nitrogen 92 mg/dL (8-23); Calcium 8.9 mg/dL (8.6-10.3); Carbon Dioxide 20 mEq/L (23-29); Chloride 109 mEq/L (98-107); Globulin 2.9 g/dL (2.4-3.5); Glucose 150 mg/dL (70-105); Lipase 46 Units/L (11-82); Osmolality,Calculated 315 (280-300); Potassium 5.3 mEq/L (3.5-5.1); Sodium 137 mEq/L (136-145); Total Protein 6.7 g/dL (6.4-8.9); Troponin I < 0.03 ng/mL (< 0.04); eGFR For African Americans 35 (> 60); eGFR For Non-African Americans 29 (> 60)
[2020-11-18 22:14] LABS: Bilirubin,Urine Negative (Negative); Blood,Urine Negative (Negative); Clarity,Urine Clear (Clear); Color,Urine Light-Yellow (Yellow); Glucose,Urine (UA) Normal (Normal); Ketones,Urine Negative (Negative); Leukocyte Esterase,Urine Negative (Negative); Nitrite,Urine Negative (Negative); PH,Urine 5.5 pH Units (5.0-8.0); Protein,Urine Negative (Neg-Trace); Specific Gravity,Urine 1.014 (1.010-1.025); Urobilinogen,Urine Normal (Normal)
[2020-11-18] MEDS ORDERED: MetroNIDAZOLE 500 MG/100 ML 500 MG/100 ML BAG IVPB ONE (22:57)
[2020-11-19] MEDS ORDERED: Naloxone 0.4 MG/ML INJ IVP PRN (00:17)
[2020-11-19] MEDS ORDERED: Dextrose Gel 15 GM/37.5 ML TUBE PO PRN ×2 (01:57)
[2020-11-19] MEDS ORDERED: *HR* Dextrose 50 % in Water (Vial) 50 ML VIAL IVP PRN (01:57)
[2020-11-19] MEDS ORDERED: D5% in Water 1,000 ML IVC PRN (01:57)
[2020-11-19] MEDS ORDERED: 0.9 % Sodium Chloride 250 ML IVC SCH (02:00)
[2020-11-19] MEDS ORDERED: 0.9 % Sodium Chloride 500 ML IVC SCH (02:00)
[2020-11-19 02:28] LABS: Red Cell Distribution Width 16.8 % (11.5-14.5)
[2020-11-19 02:30] LABS: Hematocrit 22.4 % (37.5-50.1); Hemoglobin 7.1 g/dL (12.9-16.9); Immature Platelets 4.7 % (1.1-6.1); Mean Corpuscular HGB Conc 31.7 g/dL (31.6-35.5); Mean Corpuscular Hemoglobin 33.6 pg (28.0-33.3); Mean Corpuscular Volume 106.2 fL (83.0-100.0); Mean Platelet Volume 11.6 fL (9.4-12.4); Red Blood Count 2.11 M/mcL (4.19-5.50)
[2020-11-19 02:45] LABS: Calcium 8.7 mg/dL (8.6-10.3); Potassium 5.1 mEq/L (3.5-5.1)
[2020-11-19 02:47] LABS: % Iron Saturation 28 % (20-55); Iron 80 mcg/dL (65-175); Transferrin 201 mg/dL (203-362)
[2020-11-19 03:06] LABS: Ferritin 301 ng/mL (20-250)
[2020-11-19 03:11] LABS: Folate 9.9 ng/mL (3.0-16.0)
[2020-11-19] MEDS: Insulin LISPRO 300 UNITS/3 ML VIAL SUBQ SCH ×4 (04:54→17:22)
[2020-11-19] MEDS ORDERED: Ondansetron 4 MG/2 ML VIAL IVP PRN (08:06)
[2020-11-19] MEDS: cefTRIAXone 1,000 MG in Water for inj. (sterile) 10 ML IVP SCH (09:28)
[2020-11-19] MEDS: Cyanocobalamin (B-12) 1,000 MCG TABLET PO SCH (09:29)
[2020-11-19] MEDS: MetroNIDAZOLE 500 MG/100 ML 500 MG/100 ML BAG IVPB SCH ×3 (09:29→23:49)
[2020-11-19 12:45] LABS: Mean Corpuscular Volume 102.7 fL (83.0-100.0)
[2020-11-19 12:48] LABS: Hematocrit 26.4 % (37.5-50.1); Hemoglobin 8.5 g/dL (12.9-16.9); Immature Platelets 4.8 % (1.1-6.1); Mean Corpuscular HGB Conc 32.2 g/dL (31.6-35.5); Mean Corpuscular Hemoglobin 33.1 pg (28.0-33.3); Red Blood Count 2.57 M/mcL (4.19-5.50); Red Cell Distribution Width 17.2 % (11.5-14.5); White Blood Count 4.2 K/mcL (4.3-11.1)
[2020-11-19] MEDS: carvediloL 6.25 MG TABLET PO SCH (17:23)
[2020-11-19] MEDS: Insulin DETEMIR 100 UNIT/ML X5UNITS SUBQ SCH (20:45)
[2020-11-19] MEDS ORDERED: NON-FORMULARY MEDICATION 1 EACH EACH (Carvedilol [Carvedilol] 12.5 MG Tablet) PO SCH (21:00)
[2020-11-20 04:51] LABS: Basophils % 0.2 %; White Blood Count 5.2 K/mcL (4.3-11.1)
[2020-11-20 04:52] LABS: Eosinophils # 0.2 K/mcL (0.0-0.6); Eosinophils % 2.9 %; Hematocrit 26.1 % (37.5-50.1); Hemoglobin 8.4 g/dL (12.9-16.9); Immature Granulocytes % 1.1 % (0-4); Lymphocytes # 0.8 K/mcL (0.6-4.6); Lymphocytes % 14.5 %; Mean Corpuscular HGB Conc 32.2 g/dL (31.6-35.5); Mean Corpuscular Hemoglobin 32.9 pg (28.0-33.3); Mean Corpuscular Volume 102.4 fL (83.0-100.0); Mean Platelet Volume 11.5 fL (9.4-12.4); Monocytes # 0.5 K/mcL (0.0-1.3); Monocytes % 8.8 %; Neutrophils # 3.8 K/mcL (1.6-8.9); Red Blood Count 2.55 M/mcL (4.19-5.50); Segmented Neutrophils % 72.5 %
[2020-11-20 05:03] LABS: Platelet Count 62 K/mcL (140-400)
[2020-11-20 05:05] LABS: Calcium 8.7 mg/dL (8.6-10.3); Potassium 4.7 mEq/L (3.5-5.1)
[2020-11-20] MEDS: Insulin LISPRO 300 UNITS/3 ML VIAL SUBQ SCH ×3 (08:02→16:34)
[2020-11-20] MEDS: Finasteride 5 MG TABLET PO SCH (08:50)
[2020-11-20] MEDS: cefTRIAXone 1,000 MG in Water for inj. (sterile) 10 ML IVP SCH (08:50)
[2020-11-20] MEDS: allopurinoL 100 MG TABLET PO SCH (08:50)
[2020-11-20] MEDS: Cyanocobalamin (B-12) 1,000 MCG TABLET PO SCH (08:50)
[2020-11-20] MEDS: carvediloL 6.25 MG TABLET PO SCH ×2 (08:50→16:35)
[2020-11-20] MEDS: MetroNIDAZOLE 500 MG/100 ML 500 MG/100 ML BAG IVPB SCH ×3 (08:51→23:43)
[2020-11-20] MEDS: Insulin DETEMIR 100 UNIT/ML X5UNITS SUBQ SCH (21:17)
[2020-11-21] MEDS: Insulin LISPRO 300 UNITS/3 ML VIAL SUBQ SCH ×2 (07:52→12:18)
[2020-11-21] MEDS: Finasteride 5 MG TABLET PO SCH (08:04)
[2020-11-21] MEDS: carvediloL 6.25 MG TABLET PO SCH (08:04)
[2020-11-21] MEDS: allopurinoL 100 MG TABLET PO SCH (08:05)
[2020-11-21] MEDS: Cyanocobalamin (B-12) 1,000 MCG TABLET PO SCH (08:05)
[2020-11-21 08:31] LABS: Basophils % 0.2 %; Eosinophils # 0.1 K/mcL (0.0-0.6); Eosinophils % 2.6 %; Hematocrit 25.9 % (37.5-50.1); Hemoglobin 8.6 g/dL (12.9-16.9); Immature Granulocytes % 0.9 % (0-4); Lymphocytes # 0.9 K/mcL (0.6-4.6); Lymphocytes % 18.2 %; Mean Corpuscular HGB Conc 33.2 g/dL (31.6-35.5); Mean Corpuscular Hemoglobin 33.7 pg (28.0-33.3); Mean Corpuscular Volume 101.6 fL (83.0-100.0); Monocytes # 0.4 K/mcL (0.0-1.3); Monocytes % 8.4 %; Neutrophils # 3.3 K/mcL (1.6-8.9); Red Blood Count 2.55 M/mcL (4.19-5.50); Red Cell Distribution Width 16.9 % (11.5-14.5); Segmented Neutrophils % 69.7 %; White Blood Count 4.7 K/mcL (4.3-11.1)
[2020-11-21 08:32] LABS: Platelet Count 66 K/mcL (140-400)
[2020-11-21 08:50] LABS: Calcium 8.7 mg/dL (8.6-10.3); Potassium 4.7 mEq/L (3.5-5.1)
[2020-11-21 10:47] VITALS: BP 155/69
[2020-11-21 12:13] LABS: Influenza A PCR Negative (Negative); Influenza B PCR Negative (Negative); Resp. Syncytial Virus PCR Negative (Negative); SARS-CoV-2 by PCR (In House) Negative (Negative)
== END 2020-11-21 15:49 ==
LOC: 3ANU 18:24 → EMEROOARM 18:24 → SUATTDRO 23:50 → 3ANU 11-19 00:35
PROVIDERS: ADMIT Internal Medicine; ATTEND Internal Medicine

== ENCOUNTER 2021-01-03 17:56 | Inpatient (IN) ==
[2021-01-03 19:11] LABS: Red Cell Distribution Width 17.2 % (11.5-14.5)
[2021-01-03 19:13] LABS: Basophils % 0.2 %; Eosinophils # 0.1 K/mcL (0.0-0.6); Eosinophils % 1.2 %; Hematocrit 20.8 % (37.5-50.1); Hemoglobin 6.8 g/dL (12.9-16.9); Immature Granulocytes % 1.2 % (0-4); Immature Platelets 6.3 % (1.1-6.1); Lymphocytes # 0.5 K/mcL (0.6-4.6); Lymphocytes % 7.8 %; Mean Corpuscular HGB Conc 32.7 g/dL (31.6-35.5); Mean Corpuscular Hemoglobin 34.3 pg (28.0-33.3); Mean Corpuscular Volume 105.1 fL (83.0-100.0); Monocytes # 0.5 K/mcL (0.0-1.3); Monocytes % 7.8 %; Neutrophils # 5.5 K/mcL (1.6-8.9); Nucleated Red Blood Cells 0.3 /100 WBC (0); Platelet Count 80 K/mcL (140-400); Red Blood Count 1.98 M/mcL (4.19-5.50); Segmented Neutrophils % 81.8 %; White Blood Count 6.7 K/mcL (4.3-11.1)
[2021-01-03 19:26] LABS: Alanine Aminotransferase 29 Units/L (7-52); Albumin 3.3 g/dL (3.5-5.7); Albumin/Globulin Ratio 1.2 (1.1-2.2); Alkaline Phosphatase 75 Units/L (34-104); Amylase 68 Units/L (29-103); Aspartate Amino Transferase 23 Units/L (13-39); BUN/Creatinine Ratio 41 (6-26); Bilirubin,Direct 0.1 mg/dL (0.0-0.2); Bilirubin,Indirect 0.3 mg/dL (0.0-1.0); Bilirubin,Total 0.4 mg/dL (0.3-1.0); Blood Urea Nitrogen 104 mg/dL (8-23); Calcium 8.6 mg/dL (8.6-10.3); Carbon Dioxide 19 mEq/L (23-29); Chloride 103 mEq/L (98-107); Globulin 2.8 g/dL (2.4-3.5); Glucose 57 mg/dL (70-105); Lipase 20 Units/L (11-82); Osmolality,Calculated 300 (280-300); Potassium 6.1 mEq/L (3.5-5.1); Sodium 130 mEq/L (136-145); Total Protein 6.1 g/dL (6.4-8.9); Troponin I < 0.03 ng/mL (< 0.04); eGFR For African Americans 29 (> 60); eGFR For Non-African Americans 24 (> 60)
[2021-01-03] MEDS ORDERED: 0.9 % Sodium Chloride 500 ML IVC ONE (20:08)
[2021-01-03 20:45] LABS: Bilirubin,Urine Negative (Negative); Blood,Urine Small (Negative); Clarity,Urine Clear (Clear); Color,Urine Light-Yellow (Yellow); Glucose,Urine (UA) Normal (Normal); Hyaline Casts,Urine Few per lpf (None Seen); Ketones,Urine Negative (Negative); Leukocyte Esterase,Urine Small (Negative); Mucus,Urine Few per lpf (None-Few); Nitrite,Urine Negative (Negative); Protein,Urine Negative (Neg-Trace); RBC,Urine 0-3 per hpf (0-3); Specific Gravity,Urine 1.015 (1.010-1.025); Urobilinogen,Urine Normal (Normal)
[2021-01-03] MEDS ORDERED: Naloxone 0.4 MG/ML INJ IVP PRN (21:18)
[2021-01-03] MEDS ORDERED: Ondansetron 4 MG/2 ML VIAL IVP PRN (21:24)
[2021-01-03] MEDS ORDERED: Melatonin 3 MG TABLET PO PRN (21:24)
[2021-01-03] MEDS ORDERED: Acetaminophen 325 MG TABLET PO PRN (21:24)
[2021-01-03] MEDS ORDERED: Insulin Human Regular 10 UNIT in 0.9 % Sodium Chloride 10 ML IV ONE (21:29)
[2021-01-03] MEDS ORDERED: *HR* Dextrose 50 % in Water (Vial) 50 ML VIAL IVP ONE (21:29)
[2021-01-03] MEDS ORDERED: SODIUM ZIRCONIUM CYCLOSILICATE 5 GM POWD.PACK PO ONE (21:30)
[2021-01-03] MEDS ORDERED: 0.9 % Sodium Chloride 1,000 ML IVC SCH (21:45)
[2021-01-03] MEDS ORDERED: 0.9 % Sodium Chloride 500 ML ONE (22:26)
[2021-01-04 01:57] LABS: Protein/Creatinine Ratio,Urine 0.27 mg/mg (0.00-0.20); Sodium, Urine 48.6 mEq/L
[2021-01-04] MEDS ORDERED: Acetaminophen IV 1,000 MG/100 ML BAG IVPB ONE ×2 (02:10→20:47)
[2021-01-04] MEDS ORDERED: *HR* Dextrose 50 % in Water (Vial) 50 ML VIAL ONE (02:33)
[2021-01-04] MEDS ORDERED: *HR* Dextrose 50 % in Water (Vial) 50 ML VIAL IVP ONE ×2 (02:36→08:53)
[2021-01-04] MEDS ORDERED: Dextrose Gel 15 GM/37.5 ML TUBE PO PRN ×2 (02:55)
[2021-01-04] MEDS: *HR* Dextrose 50 % in Water (Vial) 50 ML VIAL IVP PRN ×6 (03:09→22:58)
[2021-01-04] MEDS: D5% in Water 1,000 ML IVC PRN ×2 (07:20→15:16)
[2021-01-04] MEDS: Pantoprazole 40 MG VIAL IVP SCH ×2 (07:21→17:48)
[2021-01-04] MEDS ORDERED: Piperacillin/Tazobactam 3.375 GM in 0.9 % Sodium Chloride Mini Bag 100 ML IVPB SCH (08:00)
[2021-01-04 08:45] LABS: Red Cell Distribution Width 18.6 % (11.5-14.5)
[2021-01-04 08:46] LABS: Eosinophils # 0.1 K/mcL (0.0-0.6); Eosinophils % 1.2 %; Hematocrit 22.3 % (37.5-50.1); Hemoglobin 7.3 g/dL (12.9-16.9); Immature Granulocytes % 0.4 % (0-4); Immature Platelets 5.9 % (1.1-6.1); Lymphocytes # 0.4 K/mcL (0.6-4.6); Lymphocytes % 9.1 %; Mean Corpuscular HGB Conc 32.7 g/dL (31.6-35.5); Mean Corpuscular Hemoglobin 33.5 pg (28.0-33.3); Mean Corpuscular Volume 102.3 fL (83.0-100.0); Mean Platelet Volume 12.1 fL (9.4-12.4); Monocytes # 0.3 K/mcL (0.0-1.3); Monocytes % 7.1 %; Nucleated Red Blood Cells 0.4 /100 WBC (0); Red Blood Count 2.18 M/mcL (4.19-5.50); Segmented Neutrophils % 82.2 %; White Blood Count 4.8 K/mcL (4.3-11.1)
[2021-01-04 08:49] LABS: Calcium 8.3 mg/dL (8.6-10.3); Chol/HDL Ratio 3.5 (0-4.9); Magnesium 2.7 mg/dL (1.6-2.6); Phosphorous 3.5 mg/dL (2.7-4.5); Platelet Count 62 K/mcL (140-400); Potassium 5.7 mEq/L (3.5-5.1)
[2021-01-04 08:51] LABS: INR 1.1; Prothrombin Time 12.6 Seconds (9.4-12.1)
[2021-01-04] MEDS ORDERED: Insulin DETEMIR 100 UNIT/ML X5UNITS SUBQ SCH (09:00)
[2021-01-04 09:12] LABS: Folate 3.6 ng/mL (3.0-16.0)
[2021-01-04] MEDS: Piperacillin/Tazobactam 3.375 GM in 0.9 % Sodium Chloride Mini Bag 100 ML IVPB SCH ×2 (09:37→17:48)
[2021-01-04] MEDS: carvediloL 6.25 MG TABLET PO SCH ×2 (09:45→17:49)
[2021-01-04] MEDS: Finasteride 5 MG TABLET PO SCH (09:46)
[2021-01-04] MEDS: SODIUM ZIRCONIUM CYCLOSILICATE 5 GM POWD.PACK PO SCH (12:59)
[2021-01-04] MEDS: traZODone 50 MG TABLET PO SCH (19:56)
[2021-01-05] MEDS: D5% in Water 1,000 ML IVC PRN (00:02)
[2021-01-05] MEDS ORDERED: Acetaminophen IV 1,000 MG/100 ML BAG IVPB ONE (01:50)
[2021-01-05 01:59] LABS: Hemoglobin 6.8 g/dL (12.9-16.9); Immature Granulocytes % 0.6 % (0-4); Mean Corpuscular Volume 102.5 fL (83.0-100.0); Red Cell Distribution Width 18.7 % (11.5-14.5)
[2021-01-05 02:00] LABS: Eosinophils # 0.1 K/mcL (0.0-0.6); Eosinophils % 2.4 %; Hematocrit 20.8 % (37.5-50.1); Immature Platelets 5.1 % (1.1-6.1); Lymphocytes # 0.4 K/mcL (0.6-4.6); Lymphocytes % 11.8 %; Mean Corpuscular HGB Conc 32.7 g/dL (31.6-35.5); Mean Corpuscular Hemoglobin 33.5 pg (28.0-33.3); Mean Platelet Volume 11.7 fL (9.4-12.4); Monocytes # 0.3 K/mcL (0.0-1.3); Monocytes % 7.9 %; Neutrophils # 2.6 K/mcL (1.6-8.9); Red Blood Count 2.03 M/mcL (4.19-5.50); Segmented Neutrophils % 77.3 %; White Blood Count 3.4 K/mcL (4.3-11.1)
[2021-01-05 02:03] LABS: Platelet Count 58 K/mcL (140-400)
[2021-01-05 02:16] LABS: Calcium 8.2 mg/dL (8.6-10.3); Potassium 5.3 mEq/L (3.5-5.1); Uric Acid 5.3 mg/dL (2.3-7.6)
[2021-01-05 03:41] LABS: Hepatitis B Surface Antigen Nonreactive (Nonreactive)
[2021-01-05] MEDS ORDERED: 0.9 % Sodium Chloride 250 ML IVC SCH (04:00)
[2021-01-05 04:10] LABS: Hepatitis B Core IgM Nonreactive (Nonreactive); Hepatitis C Virus Antibody Nonreactive (Nonreactive)
[2021-01-05 04:12] LABS: Hepatitis A Antibody IgM Nonreactive (Nonreactive)
[2021-01-05] MEDS: Piperacillin/Tazobactam 3.375 GM in 0.9 % Sodium Chloride Mini Bag 100 ML IVPB SCH ×2 (05:55→17:25)
[2021-01-05] MEDS: Pantoprazole 40 MG VIAL IVP SCH ×2 (05:55→17:24)
[2021-01-05] MEDS ORDERED: Acetaminophen IV 1,000 MG/100 ML BAG IVPB PRN (07:20)
[2021-01-05] MEDS: SODIUM ZIRCONIUM CYCLOSILICATE 5 GM POWD.PACK PO SCH (09:24)
[2021-01-05] MEDS: carvediloL 6.25 MG TABLET PO SCH ×2 (09:26→17:23)
[2021-01-05] MEDS: Finasteride 5 MG TABLET PO SCH (09:28)
[2021-01-05] MEDS ORDERED: Furosemide 40 MG/4 ML VIAL IVP ONE (10:36)
[2021-01-05] MEDS: traZODone 50 MG TABLET PO SCH (20:59)
[2021-01-06 01:15] LABS: Hemoglobin 7.7 g/dL (12.9-16.9)
[2021-01-06 01:16] LABS: Immature Granulocytes % 0.9 % (0-4)
[2021-01-06 01:18] LABS: Eosinophils # 0.1 K/mcL (0.0-0.6); Eosinophils % 3.1 %; Hematocrit 22.8 % (37.5-50.1); Immature Platelets 5.8 % (1.1-6.1); Lymphocytes # 0.5 K/mcL (0.6-4.6); Lymphocytes % 16.3 %; Mean Corpuscular HGB Conc 33.8 g/dL (31.6-35.5); Mean Corpuscular Volume 97.9 fL (83.0-100.0); Mean Platelet Volume 11.7 fL (9.4-12.4); Monocytes # 0.4 K/mcL (0.0-1.3); Red Blood Count 2.33 M/mcL (4.19-5.50); Red Cell Distribution Width 18.2 % (11.5-14.5); Segmented Neutrophils % 68.7 %; White Blood Count 3.3 K/mcL (4.3-11.1)
[2021-01-06 01:24] LABS: Platelet Count 60 K/mcL (140-400)
[2021-01-06 01:25] LABS: Neutrophils # 2.3 K/mcL (1.6-8.9)
[2021-01-06 01:38] LABS: Calcium 7.9 mg/dL (8.6-10.3); Potassium 4.8 mEq/L (3.5-5.1)
[2021-01-06] MEDS: Pantoprazole 40 MG VIAL IVP SCH (05:17)
[2021-01-06] MEDS: Piperacillin/Tazobactam 3.375 GM in 0.9 % Sodium Chloride Mini Bag 100 ML IVPB SCH (05:17)
[2021-01-06] MEDS: carvediloL 6.25 MG TABLET PO SCH (09:47)
[2021-01-06] MEDS: Finasteride 5 MG TABLET PO SCH (09:47)
[2021-01-06] MEDS: SODIUM ZIRCONIUM CYCLOSILICATE 5 GM POWD.PACK PO SCH (09:48)
[2021-01-06] MEDS ORDERED: Acetaminophen 325 MG TABLET PO PRN (12:28)
[2021-01-06] MEDS ORDERED: Piperacillin/Tazobactam 3.375 GM in 0.9 % Sodium Chloride Mini Bag 100 ML IVPB SCH (14:00)
[2021-01-06 15:35] VITALS: BP 136/57; PULSE 84; TEMP 98.1; O2SAT 96
== END 2021-01-06 16:48 | DRG 682 ==
LOC: EMEROOARM 17:56 → 2ANU 17:56
PROVIDERS: ADMIT Internal Medicine; ATTEND Internal Medicine

== ENCOUNTER 2021-01-15 16:33 | Inpatient (IN) ==
[2021-01-15] MEDS ORDERED: *HR* FentaNYL (PF) 100 MCG/2 ML VIAL IVP ONE (17:42)
[2021-01-15 18:48] LABS: Eosinophils % 0.6 %; Hematocrit 25.9 % (37.5-50.1); Hemoglobin 8.5 g/dL (12.9-16.9); Immature Granulocytes % 1.5 % (0-4); Immature Platelets 5.1 % (1.1-6.1); Lymphocytes # 0.6 K/mcL (0.6-4.6); Lymphocytes % 12.3 %; Mean Corpuscular HGB Conc 32.8 g/dL (31.6-35.5); Mean Corpuscular Hemoglobin 32.8 pg (28.0-33.3); Mean Platelet Volume 11.7 fL (9.4-12.4); Monocytes # 0.5 K/mcL (0.0-1.3); Monocytes % 11.2 %; Neutrophils # 3.5 K/mcL (1.6-8.9); Nucleated Red Blood Cells 0.4 /100 WBC (0); Red Blood Count 2.59 M/mcL (4.19-5.50); Red Cell Distribution Width 17.8 % (11.5-14.5); Segmented Neutrophils % 74.4 %; White Blood Count 4.7 K/mcL (4.3-11.1)
[2021-01-15 18:49] LABS: Platelet Count 70 K/mcL (140-400)
[2021-01-15 19:09] LABS: Alanine Aminotransferase 21 Units/L (7-52); Alkaline Phosphatase 76 Units/L (34-104); Aspartate Amino Transferase 12 Units/L (13-39); BUN/Creatinine Ratio 37 (6-26); Bilirubin,Total 0.4 mg/dL (0.3-1.0); Blood Urea Nitrogen 113 mg/dL (8-23); Calcium 7.9 mg/dL (8.6-10.3); Carbon Dioxide 18 mEq/L (23-29); Chloride 101 mEq/L (98-107); Globulin 3.1 g/dL (2.4-3.5); Glucose 338 mg/dL (70-105); Lipase 73 Units/L (11-82); Osmolality,Calculated 313 (280-300); Potassium 6.1 mEq/L (3.5-5.1); Sodium 127 mEq/L (136-145); Total Protein 6.1 g/dL (6.4-8.9); eGFR For African Americans 24 (> 60); eGFR For Non-African Americans 20 (> 60)
[2021-01-15 19:10] LABS: Troponin I < 0.03 ng/mL (< 0.04)
[2021-01-15] MEDS ORDERED: *HR* Dextrose 50 % in Water (Vial) 50 ML VIAL IVP ONE (19:43)
[2021-01-15] MEDS ORDERED: Insulin Human Regular 10 UNIT in 0.9 % Sodium Chloride 10 ML IV ONE ×2 (19:43→23:59)
[2021-01-15] MEDS ORDERED: Calcium Gluconate 1gm/50mL 1 GM/50 ML BAG IVPB PRN (19:45)
[2021-01-15 20:08] LABS: Magnesium 3.3 mg/dL (1.6-2.6)
[2021-01-15 21:29] LABS: Bilirubin,Urine Negative (Negative); Blood,Urine Negative (Negative); Clarity,Urine Clear (Clear); Color,Urine Light-Yellow (Yellow); Glucose,Urine (UA) 50 mg/dL (Normal); Hyaline Casts,Urine Moderate per lpf (None Seen); Ketones,Urine Negative (Negative); Leukocyte Esterase,Urine Negative (Negative); Mucus,Urine Few per lpf (None-Few); Nitrite,Urine Negative (Negative); PH,Urine 5.5 pH Units (5.0-8.0); Protein,Urine Trace mg/dL (Neg-Trace); RBC,Urine 0-3 per hpf (0-3); Specific Gravity,Urine 1.017 (1.010-1.025); Squamous Epithelial Cell,Urine Few per hpf (None-Few); Urobilinogen,Urine Normal (Normal)
[2021-01-15 22:35] LABS: Calcium 8.2 mg/dL (8.6-10.3); Potassium 5.8 mEq/L (3.5-5.1)
[2021-01-15] MEDS ORDERED: Naloxone 0.4 MG/ML INJ IVP PRN ×2 (23:16→23:34)
[2021-01-15 23:25] LABS: Adenovirus Not Detected (Not Detect); Bordetella Pertussis Not Detected (Not Detect); Chlamydophila pneumoniae Not Detected (Not Detect); Coronavirus 229E Not Detected (Not Detect); Coronavirus HKU1 Not Detected (Not Detect); Coronavirus NL63 Not Detected (Not Detect); Coronavirus OC43 Not Detected (Not Detect); Human Metapneumovirus Not Detected (Not Detect); Human Rhinovirus/Enterovirus Not Detected (Not Detect); Influenza A Subtype 2009 H1 Not Detected (Not Detect); Influenza B Not Detected (Not Detect); Mycoplasma pneumoniae Not Detected (Not Detect); Parainfluenza Virus 1 Not Detected (Not Detect); Parainfluenza Virus 2 Not Detected (Not Detect); Parainfluenza Virus 3 Not Detected (Not Detect); Parainfluenza Virus 4 Not Detected (Not Detect); Respiratory Syncytial Virus Not Detected (Not Detect); SARS-CoV-2 Not Detected (Not Detect)
[2021-01-15] MEDS ORDERED: Ondansetron 4 MG/2 ML VIAL IVP PRN (23:34)
[2021-01-16] MEDS ORDERED: Furosemide 40 MG/4 ML VIAL IVP ONE
[2021-01-16] MEDS ORDERED: *HR* Dextrose 50 % in Water (Vial) 50 ML VIAL IVP ONE (00:15)
[2021-01-16] MEDS ORDERED: Ipratropium/Albuterol Neb 3 ML IH PRN (00:16)
[2021-01-16] MEDS ORDERED: D5% in Water 1,000 ML IVC PRN (00:21)
[2021-01-16] MEDS ORDERED: *HR* Dextrose 50 % in Water (Vial) 50 ML VIAL IVP PRN (00:21)
[2021-01-16] MEDS ORDERED: Dextrose Gel 15 GM/37.5 ML TUBE PO PRN ×2 (00:21)
[2021-01-16] MEDS: SODIUM ZIRCONIUM CYCLOSILICATE 5 GM POWD.PACK PO SCH ×2 (00:41→08:47)
[2021-01-16 06:35] LABS: Mean Corpuscular Volume 97.4 fL (83.0-100.0)
[2021-01-16 06:38] LABS: Eosinophils # 0.1 K/mcL (0.0-0.6); Hematocrit 22.6 % (37.5-50.1); Hemoglobin 7.7 g/dL (12.9-16.9); Immature Platelets 4.8 % (1.1-6.1); Mean Corpuscular HGB Conc 34.1 g/dL (31.6-35.5); Mean Corpuscular Hemoglobin 33.2 pg (28.0-33.3); Mean Platelet Volume 11.8 fL (9.4-12.4); Red Blood Count 2.32 M/mcL (4.19-5.50); Red Cell Distribution Width 17.8 % (11.5-14.5); White Blood Count 4.3 K/mcL (4.3-11.1)
[2021-01-16 06:50] LABS: INR 1.2; Prothrombin Time 13.3 Seconds (9.4-12.1)
[2021-01-16 07:03] LABS: Calcium 8.2 mg/dL (8.6-10.3); Chol/HDL Ratio 3.9 (0-4.9); Magnesium 3.3 mg/dL (1.6-2.6); Phosphorous 4.2 mg/dL (2.7-4.5); Potassium 5.6 mEq/L (3.5-5.1)
[2021-01-16 07:10] LABS: Platelet Count 68 K/mcL (140-400)
[2021-01-16] MEDS: Insulin LISPRO 300 UNITS/3 ML VIAL SUBQ SCH ×4 (09:14→20:16)
[2021-01-16 09:36] LABS: Anisocytosis 1+ (Not Present); Hypochromasia Present (Not Present); Lymphocytes # 1.1 K/mcL (0.6-4.6); Monocytes # 0.1 K/mcL (0.0-1.3)
[2021-01-16 09:37] LABS: Platelet Estimate Decreased (Normal); Reactive Lymphocytes Present (Not Present)
[2021-01-16] MEDS ORDERED: Acetaminophen 325 MG TABLET PO PRN (14:50)
[2021-01-16 15:48] LABS: Calcium 8.2 mg/dL (8.6-10.3); Potassium 5.4 mEq/L (3.5-5.1)
[2021-01-16] MEDS: Insulin DETEMIR 100 UNIT/ML X5UNITS SUBQ SCH (20:16)
[2021-01-16] MEDS: traZODone 50 MG TABLET PO SCH (20:16)
[2021-01-17 02:10] LABS: Basophils % 0.3 %; Eosinophils % 1.4 %; Mean Corpuscular Volume 97.6 fL (83.0-100.0); Red Cell Distribution Width 17.8 % (11.5-14.5)
[2021-01-17 02:12] LABS: Eosinophils # 0.1 K/mcL (0.0-0.6); Hematocrit 20.7 % (37.5-50.1); Immature Granulocytes % 1.1 % (0-4); Immature Platelets 3.3 % (1.1-6.1); Lymphocytes # 0.8 K/mcL (0.6-4.6); Lymphocytes % 22.3 %; Mean Corpuscular HGB Conc 33.8 g/dL (31.6-35.5); Mean Platelet Volume 10.7 fL (9.4-12.4); Monocytes # 0.4 K/mcL (0.0-1.3); Monocytes % 11.3 %; Neutrophils # 2.3 K/mcL (1.6-8.9); Red Blood Count 2.12 M/mcL (4.19-5.50); Segmented Neutrophils % 63.6 %; White Blood Count 3.6 K/mcL (4.3-11.1)
[2021-01-17 02:16] LABS: Platelet Count 68 K/mcL (140-400)
[2021-01-17 02:28] LABS: Potassium 5.7 mEq/L (3.5-5.1)
[2021-01-17] MEDS: Insulin LISPRO 300 UNITS/3 ML VIAL SUBQ SCH ×4 (08:41→20:13)
[2021-01-17] MEDS: Cholecalciferol (D-3) 1,000 UNIT (25MCG) TABLET PO SCH (09:21)
[2021-01-17] MEDS: allopurinoL 100 MG TABLET PO SCH (09:21)
[2021-01-17] MEDS: SODIUM ZIRCONIUM CYCLOSILICATE 5 GM POWD.PACK PO SCH (09:21)
[2021-01-17] MEDS: Cyanocobalamin (B-12) 1,000 MCG TABLET PO SCH (09:21)
[2021-01-17] MEDS: Finasteride 5 MG TABLET PO SCH (09:21)
[2021-01-17] MEDS ORDERED: 0.9 % Sodium Chloride 250 ML ONE (12:25)
[2021-01-17] MEDS: *HR* HYDROcodone/Acet 5/325 mg TABLET PO PRN (13:19)
[2021-01-17 16:58] LABS: Creatinine,Urine 41 mg/dL
[2021-01-17 17:51] LABS: Hematocrit 25.9 % (37.5-50.1); Hemoglobin 8.4 g/dL (12.9-16.9)
[2021-01-17] MEDS: traZODone 50 MG TABLET PO SCH (20:23)
[2021-01-17] MEDS: Insulin DETEMIR 100 UNIT/ML X5UNITS SUBQ SCH (20:23)
[2021-01-18 01:20] LABS: Eosinophils # 0.1 K/mcL (0.0-0.6); Eosinophils % 1.4 %; Hematocrit 24.6 % (37.5-50.1); Hemoglobin 8.4 g/dL (12.9-16.9); Immature Granulocytes % 1.7 % (0-4); Lymphocytes # 0.8 K/mcL (0.6-4.6); Lymphocytes % 21.1 %; Mean Corpuscular HGB Conc 34.1 g/dL (31.6-35.5); Mean Corpuscular Hemoglobin 32.3 pg (28.0-33.3); Mean Corpuscular Volume 94.6 fL (83.0-100.0); Mean Platelet Volume 11.2 fL (9.4-12.4); Monocytes # 0.5 K/mcL (0.0-1.3); Monocytes % 14.6 %; Neutrophils # 2.2 K/mcL (1.6-8.9); Red Cell Distribution Width 19.9 % (11.5-14.5); Segmented Neutrophils % 61.2 %; White Blood Count 3.6 K/mcL (4.3-11.1)
[2021-01-18 01:22] LABS: Platelet Count 63 K/mcL (140-400)
[2021-01-18 01:39] LABS: % Iron Saturation 14 % (20-55); BUN/Creatinine Ratio 41 (6-26); Blood Urea Nitrogen 89 mg/dL (8-23); Calcium 8.2 mg/dL (8.6-10.3); Carbon Dioxide 20 mEq/L (23-29); Chloride 106 mEq/L (98-107); Glucose 127 mg/dL (70-105); Iron 28 mcg/dL (65-175); Osmolality,Calculated 309 (280-300); Potassium 5.8 mEq/L (3.5-5.1); Sodium 135 mEq/L (136-145); Transferrin 145 mg/dL (203-362); eGFR For African Americans 35 (> 60); eGFR For Non-African Americans 29 (> 60)
[2021-01-18 08:15] LABS: Creatine Kinase < 10 Units/L (30-223)
[2021-01-18 08:48] LABS: C-Reactive Protein 104 mg/L (Less than 10)
[2021-01-18] MEDS: Insulin LISPRO 300 UNITS/3 ML VIAL SUBQ SCH ×3 (09:12→17:18)
[2021-01-18] MEDS: Piperacillin/Tazobactam 3.375 GM in 0.9 % Sodium Chloride Mini Bag 100 ML IVPB SCH ×2 (09:52→16:28)
[2021-01-18] MEDS: Cholecalciferol (D-3) 1,000 UNIT (25MCG) TABLET PO SCH (09:52)
[2021-01-18] MEDS: DAPTOmycin 500 MG in 0.9 % Sodium Chloride 100 ML IVPB SCH (09:52)
[2021-01-18] MEDS: allopurinoL 100 MG TABLET PO SCH (09:53)
[2021-01-18] MEDS: Cyanocobalamin (B-12) 1,000 MCG TABLET PO SCH (09:53)
[2021-01-18] MEDS: SODIUM ZIRCONIUM CYCLOSILICATE 5 GM POWD.PACK PO SCH (09:53)
[2021-01-18] MEDS: Finasteride 5 MG TABLET PO SCH (09:53)
[2021-01-18] MEDS: traZODone 50 MG TABLET PO SCH (20:39)
[2021-01-18] MEDS: Insulin DETEMIR 100 UNIT/ML X5UNITS SUBQ SCH (20:39)
[2021-01-19] MEDS: Piperacillin/Tazobactam 3.375 GM in 0.9 % Sodium Chloride Mini Bag 100 ML IVPB SCH ×3 (01:16→15:58)
[2021-01-19] MEDS ORDERED: Ondansetron ODT 4 MG TAB.RAPDIS SL PRN (01:33)
[2021-01-19] MEDS: Cholecalciferol (D-3) 1,000 UNIT (25MCG) TABLET PO SCH (08:38)
[2021-01-19] MEDS: Cyanocobalamin (B-12) 1,000 MCG TABLET PO SCH (08:38)
[2021-01-19] MEDS: Finasteride 5 MG TABLET PO SCH (08:38)
[2021-01-19] MEDS: *HR* HYDROcodone/Acet 5/325 mg TABLET PO PRN ×2 (08:38→20:17)
[2021-01-19] MEDS: allopurinoL 100 MG TABLET PO SCH (08:38)
[2021-01-19] MEDS: SODIUM ZIRCONIUM CYCLOSILICATE 5 GM POWD.PACK PO SCH (08:39)
[2021-01-19] MEDS: DAPTOmycin 500 MG in 0.9 % Sodium Chloride 100 ML IVPB SCH (08:42)
[2021-01-19 08:43] LABS: Basophils % 0.2 %
[2021-01-19 08:45] LABS: Eosinophils # 0.1 K/mcL (0.0-0.6); Eosinophils % 1.5 %; Hematocrit 26.6 % (37.5-50.1); Hemoglobin 8.8 g/dL (12.9-16.9); Immature Platelets 3.5 % (1.1-6.1); Lymphocytes # 0.8 K/mcL (0.6-4.6); Lymphocytes % 18.5 %; Mean Corpuscular HGB Conc 33.1 g/dL (31.6-35.5); Mean Corpuscular Hemoglobin 31.7 pg (28.0-33.3); Mean Corpuscular Volume 95.7 fL (83.0-100.0); Mean Platelet Volume 11.3 fL (9.4-12.4); Monocytes # 0.4 K/mcL (0.0-1.3); Monocytes % 10.4 %; Neutrophils # 2.8 K/mcL (1.6-8.9); Red Blood Count 2.78 M/mcL (4.19-5.50); Red Cell Distribution Width 19.5 % (11.5-14.5); Segmented Neutrophils % 68.4 %; White Blood Count 4.1 K/mcL (4.3-11.1)
[2021-01-19 08:50] LABS: Platelet Count 63 K/mcL (140-400)
[2021-01-19 08:52] LABS: Lambda Qnt Free Light Chains 76.62 mg/L (5.71-26.30)
[2021-01-19 09:06] LABS: Calcium 8.1 mg/dL (8.6-10.3); Magnesium 2.3 mg/dL (1.6-2.6); Potassium 4.9 mEq/L (3.5-5.1)
[2021-01-19 09:27] LABS: Folate 7.2 ng/mL (3.0-16.0)
[2021-01-19 10:16] LABS: Kappa Qnt Free Light Chains 95.85 mg/L (3.30-19.40)
[2021-01-19] MEDS: Insulin LISPRO 300 UNITS/3 ML VIAL SUBQ SCH ×3 (10:19→16:57)
[2021-01-19] MEDS ORDERED: Cyanocobalamin (B-12) 1,000 MCG/ML VIAL SQ ONE (13:30)
[2021-01-19] MEDS: traZODone 50 MG TABLET PO SCH (20:17)
[2021-01-19] MEDS: Insulin DETEMIR 100 UNIT/ML X5UNITS SUBQ SCH (22:25)
[2021-01-20] MEDS: Piperacillin/Tazobactam 3.375 GM in 0.9 % Sodium Chloride Mini Bag 100 ML IVPB SCH ×4 (02:21→18:16)
[2021-01-20 07:46] LABS: Basophils % 0.3 %; Immature Granulocytes % 0.8 % (0-4); Red Blood Count 2.75 M/mcL (4.19-5.50); Red Cell Distribution Width 19.2 % (11.5-14.5)
[2021-01-20 07:48] LABS: Eosinophils # 0.1 K/mcL (0.0-0.6); Eosinophils % 1.5 %; Hematocrit 26.1 % (37.5-50.1); Hemoglobin 8.7 g/dL (12.9-16.9); Immature Platelets 3.5 % (1.1-6.1); Lymphocytes # 0.8 K/mcL (0.6-4.6); Lymphocytes % 20.5 %; Mean Corpuscular HGB Conc 33.3 g/dL (31.6-35.5); Mean Corpuscular Hemoglobin 31.6 pg (28.0-33.3); Mean Corpuscular Volume 94.9 fL (83.0-100.0); Mean Platelet Volume 11.7 fL (9.4-12.4); Monocytes # 0.3 K/mcL (0.0-1.3); Monocytes % 6.6 %; Segmented Neutrophils % 70.3 %; White Blood Count 3.9 K/mcL (4.3-11.1)
[2021-01-20] MEDS: Insulin LISPRO 300 UNITS/3 ML VIAL SUBQ SCH ×3 (07:48→16:42)
[2021-01-20 07:49] LABS: Neutrophils # 2.7 K/mcL (1.6-8.9); Platelet Count 60 K/mcL (140-400)
[2021-01-20 08:02] LABS: Magnesium 2.2 mg/dL (1.6-2.6); Potassium 4.3 mEq/L (3.5-5.1)
[2021-01-20] MEDS: Cholecalciferol (D-3) 1,000 UNIT (25MCG) TABLET PO SCH (08:31)
[2021-01-20] MEDS: Cyanocobalamin (B-12) 1,000 MCG TABLET PO SCH (08:31)
[2021-01-20] MEDS: Finasteride 5 MG TABLET PO SCH (08:31)
[2021-01-20] MEDS: allopurinoL 100 MG TABLET PO SCH (08:31)
[2021-01-20] MEDS: DAPTOmycin 500 MG in 0.9 % Sodium Chloride 100 ML IVPB SCH (09:20)
[2021-01-20] MEDS: Furosemide 40 MG TABLET PO SCH (16:41)
[2021-01-20] MEDS: carvediloL 6.25 MG TABLET PO SCH (20:59)
[2021-01-20] MEDS: Insulin DETEMIR 100 UNIT/ML X5UNITS SUBQ SCH (20:59)
[2021-01-20] MEDS: traZODone 50 MG TABLET PO SCH (21:01)
[2021-01-20] MEDS: Doxycycline 100 MG CAPSULE PO SCH (21:01)
[2021-01-20] MEDS: *HR* HYDROcodone/Acet 5/325 mg TABLET PO PRN (21:02)
[2021-01-20 23:21] LABS: Alpha 2 Globulin (PEP) 0.74 g/dL (0.48-1.05); Beta Globulin (PEP) 0.63 g/dL (0.48-1.10)
[2021-01-21] MEDS: Piperacillin/Tazobactam 3.375 GM in 0.9 % Sodium Chloride Mini Bag 100 ML IVPB SCH ×3 (03:10→18:22)
[2021-01-21 06:27] LABS: Mean Corpuscular Volume 94.7 fL (83.0-100.0); Mean Platelet Volume 11.9 fL (9.4-12.4)
[2021-01-21 06:29] LABS: Hematocrit 25.1 % (37.5-50.1); Hemoglobin 8.3 g/dL (12.9-16.9); Immature Platelets 4.1 % (1.1-6.1); Mean Corpuscular HGB Conc 33.1 g/dL (31.6-35.5); Mean Corpuscular Hemoglobin 31.3 pg (28.0-33.3); Red Blood Count 2.65 M/mcL (4.19-5.50); Red Cell Distribution Width 18.8 % (11.5-14.5)
[2021-01-21 06:46] LABS: Calcium 7.9 mg/dL (8.6-10.3); Potassium 3.8 mEq/L (3.5-5.1)
[2021-01-21] MEDS: Insulin LISPRO 300 UNITS/3 ML VIAL SUBQ SCH ×3 (08:10→16:26)
[2021-01-21] MEDS: Finasteride 5 MG TABLET PO SCH (09:18)
[2021-01-21] MEDS: Cholecalciferol (D-3) 1,000 UNIT (25MCG) TABLET PO SCH (09:19)
[2021-01-21] MEDS: allopurinoL 100 MG TABLET PO SCH (09:19)
[2021-01-21] MEDS: Furosemide 40 MG TABLET PO SCH (09:19)
[2021-01-21] MEDS: carvediloL 6.25 MG TABLET PO SCH (09:19)
[2021-01-21] MEDS: Doxycycline 100 MG CAPSULE PO SCH (09:19)
[2021-01-21] MEDS: Cyanocobalamin (B-12) 1,000 MCG TABLET PO SCH (09:20)
[2021-01-21 11:22] LABS: IFE Reflexed NOT DONE
[2021-01-21 14:10] LABS: Adenovirus Not Detected (Not Detect); Bordetella Pertussis Not Detected (Not Detect); Chlamydophila pneumoniae Not Detected (Not Detect); Coronavirus 229E Not Detected (Not Detect); Coronavirus HKU1 Not Detected (Not Detect); Coronavirus NL63 Not Detected (Not Detect); Coronavirus OC43 Not Detected (Not Detect); Human Metapneumovirus Not Detected (Not Detect); Human Rhinovirus/Enterovirus Not Detected (Not Detect); Influenza A Subtype 2009 H1 Not Detected (Not Detect); Influenza B Not Detected (Not Detect); Mycoplasma pneumoniae Not Detected (Not Detect); Parainfluenza Virus 1 Not Detected (Not Detect); Parainfluenza Virus 2 Not Detected (Not Detect); Parainfluenza Virus 3 Not Detected (Not Detect); Parainfluenza Virus 4 Not Detected (Not Detect); Respiratory Syncytial Virus Not Detected (Not Detect); SARS-CoV-2 Not Detected (Not Detect)
[2021-01-21] MEDS ORDERED: carvediloL 6.25 MG TABLET PO SCH (17:00)
[2021-01-22 11:14] VITALS: PULSE 111; TEMP 97.6; O2SAT 93
[2021-01-22 11:15] VITALS: BP 116/69
== END 2021-01-21 19:17 | DRG 682 ==
LOC: EMEROOARM 16:33 → 2ANU 16:33 → SUATTDRO 01-17 10:43
PROVIDERS: ADMIT Family Medicine; ATTEND Family Medicine

== ENCOUNTER 2021-02-26 18:07 | Observation (INO) ==
[2021-02-26] MEDS ORDERED: *HR* Dextrose 50 % in Water (Syg) 50 ML SYRINGE ONE (18:25)
[2021-02-26] MEDS ORDERED: *HR* Dextrose 50 % in Water (Syg) 50 ML SYRINGE IVP ONE (18:30)
[2021-02-26] MEDS ORDERED: 0.9 % Sodium Chloride 1,000 ML IVC ONE (19:19)
[2021-02-26] MEDS ORDERED: Piperacillin/Tazobactam 3.375 GM in 0.9 % Sodium Chloride Mini Bag 100 ML IVPB ONE (19:34)
[2021-02-26 19:38] LABS: Amorphous Sediment,Urine Few per hpf (None-Few); Bacteria,Urine Few per hpf (None-Few); Bilirubin,Urine Negative (Negative); Blood,Urine Large (Negative); Clarity,Urine Turbid (Clear); Color,Urine Yellow (Yellow); Glucose,Urine (UA) Normal (Normal); Hyaline Casts,Urine Few per lpf (None Seen); Ketones,Urine Negative (Negative); Leukocyte Esterase,Urine Trace (Negative); Mucus,Urine Few per lpf (None-Few); Nitrite,Urine Negative (Negative); Protein,Urine 200 mg/dL (Neg-Trace); RBC,Urine 50-100 per hpf (0-3); Specific Gravity,Urine 1.021 (1.010-1.025); Squamous Epithelial Cell,Urine Few per hpf (None-Few); Urobilinogen,Urine Normal (Normal); WBC,Urine 30-50 per hpf (0-3)
[2021-02-26 19:42] LABS: Mean Corpuscular Volume 99.6 fL (83.0-100.0); Nucleated Red Blood Cells 0.2 /100 WBC (0)
[2021-02-26 19:44] LABS: Hemoglobin 7.4 g/dL (12.9-16.9); Immature Platelets 3.2 % (1.1-6.1); Mean Corpuscular HGB Conc 32.2 g/dL (31.6-35.5); Mean Platelet Volume 11.7 fL (9.4-12.4); Red Blood Count 2.31 M/mcL (4.19-5.50); Red Cell Distribution Width 21.4 % (11.5-14.5); White Blood Count 8.3 K/mcL (4.3-11.1)
[2021-02-26 19:46] LABS: Platelet Count 90 K/mcL (140-400)
[2021-02-26 19:47] LABS: INR 1.3; Prothrombin Time 14.6 Seconds (9.4-12.1)
[2021-02-26 19:49] LABS: Activated Partial Thrombo Time 31.6 Seconds (26.0-36.0)
[2021-02-26 20:00] LABS: Albumin 2.7 g/dL (3.5-5.7); Bilirubin,Direct 0.2 mg/dL (0.0-0.2); Bilirubin,Indirect 0.3 mg/dL (0.0-1.0); Bilirubin,Total 0.5 mg/dL (0.3-1.0); Calcium 8.6 mg/dL (8.6-10.3); Globulin 2.6 g/dL (2.4-3.5); Potassium 4.3 mEq/L (3.5-5.1); Total Protein 5.3 g/dL (6.4-8.9)
[2021-02-26 20:08] LABS: Lymphocytes # 1.7 K/mcL (0.6-4.6); Macrocytosis Present (Not Present); Monocytes # 0.8 K/mcL (0.0-1.3); Neutrophils # 5.8 K/mcL (1.6-8.9); Platelet Estimate Decreased (Normal); Polychromasia 1+ (Not Present)
[2021-02-26 20:09] LABS: Microcytosis Present (Not Present)
[2021-02-26 20:29] LABS: Amphetamine Screen,Urine Negative ng/mL (Cutoff=1000); Barbiturate Screen,Urine Negative ng/mL (Cutoff=200); Benzodiazepines Screen,Urine Negative ng/mL (Cutoff=200); Cannabinoid Screen,Urine Negative ng/mL (Cutoff = 50); Cocaine Screen,Urine Negative ng/mL (Cutoff= 300); Opiate Screen,Urine Positive ng/mL (Cutoff=300); Phencyclidine Screen,Urine Negative ng/mL (Cutoff=25)
[2021-02-26] MEDS ORDERED: 0.9 % Sodium Chloride 1,000 ML ONE (21:58)
[2021-02-26] MEDS ORDERED: 0.9 % Sodium Chloride 1,000 ML IV ONE (21:59)
[2021-02-27] MEDS ORDERED: Acetaminophen 325 MG TABLET PO PRN (01:28)
[2021-02-27] MEDS ORDERED: *HR* Promethazine 25 MG/ML VIAL IM PRN (01:28)
[2021-02-27] MEDS ORDERED: Melatonin 3 MG TABLET PO PRN (01:28)
[2021-02-27] MEDS ORDERED: Naloxone 0.4 MG/ML INJ IVP PRN (01:28)
[2021-02-27] MEDS ORDERED: Ondansetron 4 MG/2 ML VIAL IVP PRN (01:28)
[2021-02-27] MEDS ORDERED: *HR* Dextrose 50 % in Water (Vial) 50 ML VIAL IVP PRN (02:11)
[2021-02-27] MEDS ORDERED: D5% in Water 1,000 ML IVC PRN (02:11)
[2021-02-27] MEDS ORDERED: Dextrose Gel 15 GM/37.5 ML TUBE PO PRN ×2 (02:11)
[2021-02-27 02:35] LABS: INR 1.3; Prothrombin Time 15.1 Seconds (9.4-12.1)
[2021-02-27 02:43] LABS: Basophils % 0.2 %; Eosinophils % 0.2 %; Hemoglobin 6.5 g/dL (12.9-16.9); Mean Corpuscular Volume 102.9 fL (83.0-100.0); Red Cell Distribution Width 21.5 % (11.5-14.5)
[2021-02-27 02:46] LABS: Hematocrit 21.2 % (37.5-50.1); Immature Granulocytes % 0.8 % (0-4); Immature Platelets 3.3 % (1.1-6.1); Lymphocytes # 1.2 K/mcL (0.6-4.6); Lymphocytes % 19.8 %; Mean Corpuscular HGB Conc 30.7 g/dL (31.6-35.5); Mean Corpuscular Hemoglobin 31.6 pg (28.0-33.3); Monocytes # 0.4 K/mcL (0.0-1.3); Monocytes % 6.6 %; Neutrophils # 4.4 K/mcL (1.6-8.9); Red Blood Count 2.06 M/mcL (4.19-5.50); Segmented Neutrophils % 72.4 %; White Blood Count 6.1 K/mcL (4.3-11.1)
[2021-02-27 02:53] LABS: Platelet Count 69 K/mcL (140-400)
[2021-02-27] MEDS: *HR* HYDROcodone/Acet 5/325 mg TABLET PO PRN ×3 (02:53→16:24)
[2021-02-27] MEDS: Ringers Solution, Lactated 1,000 ML IVC SCH ×2 (02:54→15:35)
[2021-02-27 03:15] LABS: Chol/HDL Ratio 3.3 (0-4.9); Magnesium 1.6 mg/dL (1.6-2.6); Phosphorous 3.3 mg/dL (2.7-4.5)
[2021-02-27 03:27] LABS: Anisocytosis 1+ (Not Present); Platelet Estimate Slight Decrease (Normal); Poikilocytosis 1+ (Not Present); Toxic Granulation Present (Not Present)
[2021-02-27] MEDS: Insulin LISPRO 300 UNITS/3 ML VIAL SUBQ SCH ×3 (05:55→17:42)
[2021-02-27] MEDS: Piperacillin/Tazobactam 3.375 GM in 0.9 % Sodium Chloride Mini Bag 100 ML IVPB SCH ×2 (09:23→16:25)
[2021-02-27 10:11] VITALS: BP 94/56; PULSE 100; TEMP 98.2; O2SAT 92
[2021-02-27 15:04] LABS: Adenovirus Not Detected (Not Detect); Bordetella Pertussis Not Detected (Not Detect); Chlamydophila pneumoniae Not Detected (Not Detect); Coronavirus 229E Not Detected (Not Detect); Coronavirus HKU1 Not Detected (Not Detect); Coronavirus NL63 Not Detected (Not Detect); Coronavirus OC43 Not Detected (Not Detect); Human Metapneumovirus Not Detected (Not Detect); Human Rhinovirus/Enterovirus Not Detected (Not Detect); Influenza A Subtype 2009 H1 Not Detected (Not Detect); Influenza B Not Detected (Not Detect); Mycoplasma pneumoniae Not Detected (Not Detect); Parainfluenza Virus 1 Not Detected (Not Detect); Parainfluenza Virus 2 Not Detected (Not Detect); Parainfluenza Virus 3 Not Detected (Not Detect); Parainfluenza Virus 4 Not Detected (Not Detect); Respiratory Syncytial Virus Not Detected (Not Detect); SARS-CoV-2 Not Detected (Not Detect)
[2021-02-27] MEDS ORDERED: Vancomycin 1,250 MG/262.5 ML IV.SOLN IVPB SCH (20:00)
== END 2021-02-27 18:20 ==
LOC: EMEROOARM 18:07 → 3ANU 18:07 → SUATTDRO 23:43 → 3ANU 02-27 01:02
PROVIDERS: ADMIT Internal Medicine; ATTEND Registered Nurse